=== PATIENT | female | born 1980 | race Caucasian/White ===

== ENCOUNTER 2020-04-27 00:31 | Outpatient (CLI) | payer OTHER, MEDICARE, SELFPAY ==
[2020-04-28 02:12] LABS: SARS-CoV-2 RNA PCR Negative
== END 2020-04-27 00:32 | disposition home or self-care (01) ==
PROVIDERS: Visit Provider Internal Medicine Critical Care Medicine
DX: Z20.828 Contact with and (suspected) exposure to other viral communicable diseases (principal)
CPT/HCPCS: 87635; C9803; U0003

== ENCOUNTER 2020-04-30 07:28 | Outpatient (CLI) | payer OTHER, MEDICARE, SELFPAY ==
--- NOTE | 2020-05-18 02:26 | SLEEP_ITS ---
SPLIT NIGHT SLEEP STUDY DATE OF STUDY: 04/30/2020 ORDERING PROVIDER: Maria Elena Valente REASON FOR THE STUDY: KIMBERLY. HISTORY: This patient is a 39-year-old female, 65 inches tall weighing 300 pounds with a body mass index of 49.9. She has a prior history of obstructive sleep apnea. She also has multiple medical comorbidities including rheumatoid arthritis, fibromyalgia, chronic fatigue and chronic pain, which worsens her insomnia. She also has Crohn disease. This has been going on for several years. She frequently snores and occasionally is loud enough that others complain about it. She rarely awakens at night with heartburn, belching, or coughing. She occasionally awakens from sleep feeling short of breath. She constantly has trouble sleeping with a cold, rarely wakes up gasping for breath at night, frequently has breathing problems at night observed by others, frequently sweats excessively at night and frequently notices her heart pounding or beating irregularly at night. She frequently falls asleep during the day, frequently involuntarily, but never while driving. She does not fall asleep during physical effort. She rarely has loss of muscle tone with strong emotion. She constantly has daytime difficulties due to excessive sleepiness. She is disabled. She does not feel paralyzed on waking or falling asleep. She frequently has vivid dreamlike scenes upon awakening or falling asleep. She is never afraid to go to sleep. She frequently has nightmares, frequently remembers her dreams, has racing thoughts, feelings of sadness, depression, and anxiety. She frequently has muscular tension. She rarely notices parts of her body jerking, rarely kicks at night, and rarely has crawly achy feelings in her legs. She occasionally has leg pain at night. She does not have morning jaw pain. She occasionally grinds her teeth at night. She constantly is bothered by pain during the day and is awakened by pain at night, constantly wakes up feeling stiff in the morning with sore achy muscles and pain in the neck and spine. She has panic, insomnia, concentration difficulties, depression, bowel disturbances, and headaches. Normal bedtime is 11:00 p.m., falling asleep within 30-60 minutes, typically waking 3 times at night for 10 to 15 minutes. During these episodes, she will go to the bathroom, change positions, and try to go back to sleep. She wakes in the morning between 9:00 and 11:00 a.m. Weekend schedule reveals that she goes to bed an hour later. She does not take naps. Naps are not refreshing. She is drowsy in the morning for 3 hours or longer. There is a family history with both of her parents having sleep apnea. MEDICAL COMORBIDITIES: 1. Rheumatoid arthritis. 2. Depression. 3. Anxiety. 4. Seasonal allergies. 5. She has had COVID with pneumonia. 6. GERD. 7. Crohn disease. 8. Hypothyroidism. 9. Diabetes mellitus type 2. MEDICATIONS: 1. Calcium and vitamin D 1 tablet twice a day. 2. Vitamin D 2000 units twice a day. 3. Cyclobenzaprine 10 mg t.i.d. p.r.n. pain. 4. Lyrica 100 mg b.i.d. 5. Methotrexate 5 mg 8 tablets or 40 mg once weekly. 6. Tramadol HCL 50 mg q.6 hours p.r.n. pain. 7. Celebrex 200 mg 1 capsule twice a day. 8. Prednisone 5 mg daily. 9. Cetirizine 10 mg daily. 10. Sulfasalazine 100 mg 4 tablets 4 times a day. 11. Dicyclomine HCL 20 mg 4 times a day. 12. Folic acid 1 mg daily. 13. Lisinopril 40 mg daily. 14. Fluoxetine 40 mg once a day. 15. Nasal decongestant tablet 120 mg q.12 hours. 16. Levothyroxine 100 mcg daily. 17. Alprazolam 0.25 mg b.i.d. 18. Omeprazole 20 mg delayed release 1 daily. 19. Amlodipine 5 mg daily. 20. Simponi 100 mg per mL injected as instructed. 21. Lantus insulin 35 units subcutaneously daily. 22. H
== END 2020-04-30 07:29 | disposition home or self-care (01) ==
LOC: ANHCSM 14:30
PROVIDERS: Visit Provider Physician Assistant
DX: G47.33 Obstructive sleep apnea (adult) (pediatric) (principal)
CPT/HCPCS: 95811

== ENCOUNTER 2020-05-01 13:48 | Outpatient (CLI) | payer OTHER, MEDICARE, SELFPAY ==
--- NOTE | ~2020-05-01 | MM_ITS ---
EXAMINATION: MM screening yang BI w willi HISTORY: Screening mammogram TECHNIQUE: Craniocaudal and mediolateral oblique 3-D tomosynthesis images were obtained and synthetic 2-D images were generated. Bilateral rotated lateral cc views. CAD analysis was submitted and interp reted. COMPARISON: No prior mammogram is available for comparison at this institution. BREAST PARENCHYMAL COMPOSITION: The breasts are almost entirely fatty. FINDINGS: Scattered punctate benign microcalcifications. There is no evidence of suspicious mass, bakari cification, or architectural distortion to suggest malignancy in either breast. There has been no nancy picious interval change. IMPRESSION: 1. No mammographic evidence of malignancy. 2. Recommend routine screening mammography in one year. BI-RADS Category 1: Negative Reviewed, dictated and finalized at location B.
== END 2020-05-01 13:49 | disposition home or self-care (01) ==
LOC: ANHIMG 14:02
PROVIDERS: Visit Provider Obstetrics & Gynecology
DX: Z12.31 Encounter for screening mammogram for malignant neoplasm of breast (principal)
CPT/HCPCS: 77063; 77067

== ENCOUNTER → 2021-08-15 02:17 | Outpatient (CLI) | payer BC, MEDICARE, SELFPAY ==
[2021-08-15 20:41] LABS: SARS-CoV-2 RNA PCR Negative
== END ==
PROVIDERS: PCP Family Medicine; Visit Provider Family Medicine
DX: R68.89 Other general symptoms and signs (principal); Z20.822 Contact with and (suspected) exposure to COVID-19
CPT/HCPCS: C9803; U0003; U0005

== ENCOUNTER → 2022-05-23 15:21 | Outpatient (CLI) | payer BC, MEDICARE, SELFPAY ==
--- NOTE | ~2022-05-23 | XR_ITS ---
XR abdomen/kub 1V 05/23/2022 15:43 INDICATION: Flank pain TECHNIQUE: KUB COMPARISON: None FINDINGS: Bowel gas pattern is normal. There are cholecystectomy clips. There is no evidence of free air, mass, organomegaly, ascites or obstruction. No abnormal calculi are seen. The bones appear int act. IMPRESSION: 1: No acute abdominal abnormality identified. Reviewed, dictated and finalized at location A.
== END ==
PROVIDERS: PCP Physician Assistant; Visit Provider Physician Assistant
DX: R10.9 Unspecified abdominal pain (principal)
CPT/HCPCS: 74018

== ENCOUNTER 2023-02-27 13:32 | Outpatient (CLI) | payer BC, MEDICARE, SELFPAY ==
--- NOTE | ~2023-02-27 | CT_ITS ---
EXAMINATION: CT soft tissue neck w con DATE: 02/27/2023 14:13 INDICATION: Localized swelling, mass and lump, neck. TECHNIQUE: Computed tomography (CT) of the neck was performed with 75 mL Omnipaque-350 intravenous co ntrast. Automated exposure control and iterative reconstruction technique were employed. The dose-wilmer gth product was 699.13 mGy-cm. COMPARISON: None FINDINGS: There are no pathologically enlarged lymph nodes. There is a 4.9 x 2.7 x 2.8 cm subcutaneou s lipoma posterior to right scapula. A skin marker overlies this area. There is mild plaque in proxim al right internal carotid artery with 0% stenosis relative to normal distal artery lumen diameter. Th e major salivary glands are normal. The paranasal sinuses are clear. The mastoid air cells are normal . There is a benign bone island in proximal right humerus. There is mild cervical spondylosis. IMPRESSION: 1. Subcutaneous lipoma posterior to right scapula. Reviewed, dictated and finalized at location A.
[2023-02-27 14:03] LABS: Estimated Glomerular Filt Rate > 60
== END 2023-02-27 13:33 | disposition home or self-care (01) ==
PROVIDERS: PCP Family Medicine; Visit Provider Physician Assistant
DX: R22.1 Localized swelling, mass and lump, neck (principal)
CPT/HCPCS: 70491; Q9967

== ENCOUNTER 2023-03-17 11:55 | Emergency (ER) | payer BC, MEDICARE, SELFPAY ==
--- NOTE | 2023-03-17 12:15 | ED.URI ---
HPI - URI/Sore Throat General Chief Complaint: Upper Respiratory Infection Stated Complaint: flu like symptoms Time Seen by Provider: 03/17/23 12:15 Source: patient, RN notes reviewed and old records reviewed Mode of arrival: ambulatory Limitations: no limitations History of Present Illness HPI Narrative: 42 year old female who presents to [facility] with complaints of fevers since Thursday evening with temp up to 105F this morning. Patient reports that she has had some cough, some nasal drainage, denies any sore throat or ear pain but has generalized body aches. Patient reports that she has taken 3 home COVID test which have all been negative, she called her doctor and was told they don't do influenza tests. Patient admits to some discomfort to lower abdomen and also to right flank area, states she just feels bad. Patient reports that she has history of Crohn's and has frequent diarrhea and nausea. patient reports that she has been taking Tylenol and NyQuil for her symptoms can not take Ibuprofen due to having gastric bypass. Patient is immunosuppressed due to medications she takes for Crohn's and RA. MD elicited complaint: fever, cough and other (body aches, ) Pertinent past history: seasonal allergies and immunosuppression Onset (ago): day(s) (day 3 of symptoms) Pain scale (0-10): 7 Able to tolerate fluids by mouth: Yes Treatments prior to arrival: acetaminophen and other (NyQuil) Related Data Home Medications Medication Instructions Recorded Confirmed Flexeril 10 mg PO HS Muscle spasms 03/17/23 03/17/23 alprazolam 0.5 mg tablet 0.5 mg PO BID anxiety 03/17/23 03/17/23 bupropion HCl 150 mg 24 hr tablet, 300 mg PO DAILY 03/17/23 03/17/23 extended release calcium carbonate 600 mg-vitamin 1 cap PO BID 03/17/23 03/17/23 D3 10 mcg (400 unit) capsule fluoxetine 40 mg capsule 40 mg PO HS 03/17/23 03/17/23 leflunomide 10 mg tablet 10 mg PO DAILY 03/17/23 03/17/23 prednisone 1 mg tablet 3 mg PO DAILY 03/17/23 03/17/23 tramadol 50 mg tablet 50 mg PO TID PRN pain 03/17/23 03/17/23 upadacitinib 15 mg tablet,extended 30 mg PO DAILY 03/17/23 03/17/23 release 24 hr (Rinvoq) Allergies Allergy/AdvReac Type Severity Reaction Status Date / Time aspirin AdvReac Intermediate GI UPSET Verified 03/17/23 18:58 NSAIDS (Non-Steroidal AdvReac Intermediate Gastrointestinal Verified 03/17/23 18:58 Anti-Inflamma Upset Review of Systems Review of Systems: CONSTITUTIONAL: Denies malaise, chills, sweats, or fever. EYES: Denies visual changes, redness, or discharge. ENT: Reports rhinorrhea, congestion, sinus dav n,no otalgia and nosore throat. CARDIOVASCULAR: Denies chest pain, palpitations, or edema. RESPIRATORY: Reports cough.? Denies dyspnea. GASTROINTESTINAL: lower mid abdominal pain,positive for nausea, no vomiting, positive for diarrhea SKIN: Denies rash or itching. MUSCULOSKELETAL:Reports myalgia. NEUROLOGIC: Reports headache. All systems reviewed & are unremarkable except as noted in HPI and below PMFSH Past Medical History Medical History (Updated 03/18/23 @ 07:23 by Annamarie Barnes NP) Allergic rhinitis Crohn's disease Diet-controlled type 2 diabetes mellitus Fibromyalgia Gastroesophageal reflux disease Herpes Hypothyroidism Immunosuppressed status Insomnia Obstructive sleep apnea on CPAP Post depression Rheumatoid arthritis Surgical History Surgical History (Updated 03/17/23 @ 17:12 by Lucero Holland PA-C) History of arthroscopic knee surgery History of cholecystectomy (01/2006) History of endometrial ablation (03/2011) [facility] History of gastric bypass (2021) History of hysterectomy (2015) History of tonsillectomy and adenoidectomy (1981) Status post LASIK surgery of both eyes Family History Family History Other Cerebrovascular accident Diabetes mellitus Family history of cardiovascular disease Family history of mal
[2023-03-17 12:18] VITALS: BP 133/93; PULSE 124; RESP 20; TEMP 39.6; O2SAT 97
[2023-03-17 12:45] LABS: Glucose Point of Care 346 mg/dl (65-105)
[2023-03-17 13:11] VITALS: TEMP 40.5
[2023-03-17 13:14] VITALS: TEMP 40.5
[2023-03-17] MEDS: ACETAMINOPHEN 500 MG TABLET PO (13:14)
== END 2023-03-17 13:20 | disposition short-term general hospital (02) ==
PROVIDERS: Emergency Provider Registered Nurse; PCP Family Medicine
DX: N39.0 Urinary tract infection, site not specified (principal); E11.65 Type 2 diabetes mellitus with hyperglycemia; Z87.891 Personal history of nicotine dependence; K50.90 Crohn's disease, unspecified, without complications; M79.7 Fibromyalgia; K21.9 Gastro-esophageal reflux disease without esophagitis; E03.9 Hypothyroidism, unspecified; G47.33 Obstructive sleep apnea (adult) (pediatric); M06.9 Rheumatoid arthritis, unspecified
CPT/HCPCS: 81003; 82948; 87077; 87086; 87186; 87804; 99213; A9270; G0463

== ENCOUNTER 2023-03-17 13:29 | Inpatient (IN) | payer BC, MEDICARE, SELFPAY ==
[2023-03-17] VITALS (27 sets, daily range): BP systolic 91–140; BP diastolic 56–112; PULSE 71–137; RESP 15–25; TEMP 36.4–39.6; O2SAT 90–99; BMI 44.1
--- NOTE | ~2023-03-17 | XR_ITS ---
EXAMINATION: XR abdomen/kub 1V DATE: 03/18/2023 08:55 INDICATION: Right ureteral stent placement. Right kidney stone. TECHNIQUE: A supine view of the abdomen was obtained. COMPARISON: CT abdomen and pelvis 03/17/2023 FINDINGS: There are no dilated loops of bowel. There is a right internal ureteral stent in expected p osition. IMPRESSION: 1. Right internal ureteral stent in expected position. 2. No visible urolithiasis. Reviewed, dictated and finalized at location A.
--- NOTE | ~2023-03-17 | XR_ITS ---
XR chest 1V portable 03/23/2023 15:50 Indication: Pneumonia follow-up. Shortness of breath. Procedure: AP portable chest Comparison: Comparison to multiple prior studies sequentially, with oldest reviewed study dated 03/17. Findings: There is been progression of left-sided airspace disease, compatible with pneumonia. No ple ural effusion or pneumothorax. No acute osseous abnormality. There is scoliosis. No acute osseous abn ormality. Impression: 1: Interval progression of left-sided airspace disease, compatible with pneumonia. Reviewed, dictated and finalized at location B. Impression: 1: Interval progression of left-sided airspace disease, compatible with pneumon ia.
--- NOTE | ~2023-03-17 | XR_ITS ---
EXAMINATION: XR retrograde pyelo w/stent RT DATE: 03/17/2023 17:00 CDT INDICATION: Right sided stent placement . TECHNIQUE: 1 fluoroscopic image of the right abdomen were obtained during right retrograde pyelograph y with stent placement performed by the surgeon. I was not present in the operating room. Fluoroscopy exposure time was 14.8 seconds. Air Kerma 12.83 mGy. DAP [id number] mGym2. COMPARISON: CT abdomen and pelvis, same date FINDINGS: Clinical statement clips. Right ureteral stent, proximal coil projecting over the right upper pole. I mages of the distal coil were not provided. IMPRESSION: Fluoroscopic documentation of right retrograde pyelography with stent placement. Please refer to the operative note for complete procedural details . Reviewed, dictated and finalized at location K. IMPRESSION: Fluoroscopic documentation of right retrograde pyelography with stent placement . Please refer to the operative note for complete procedural details .
--- NOTE | ~2023-03-17 | XR_ITS ---
EXAMINATION: XR chest 1V portable DATE: 03/22/2023 05:56 INDICATION: Pneumonia. TECHNIQUE: A single frontal view of the chest was obtained. COMPARISON: Chest 2 views 03/21/2023, CT abdomen and pelvis 03/21/2023 FINDINGS: There are airspace opacities in left mid and upper lung zones. There are mild airspace opac ities in right upper lung zone. No pleural effusion or pneumothorax. The heart size is normal. IMPRESSION: 1. Stable airspace opacities in right upper lung zone and left mid and upper lung zones, consistent w ith pneumonia. Reviewed, dictated and finalized at location A. IMPRESSION: 1. Stable airspace opacities in right upper lung zone and left mid and upper ananth ng zones, consistent with pneumonia.
--- NOTE | ~2023-03-17 | XR_ITS ---
EXAMINATION: XR chest 2V DATE: 03/21/2023 10:01 INDICATION: Fever. TECHNIQUE: Frontal and lateral views of the chest were obtained. COMPARISON: Chest 2 views 03/17/2023, CT abdomen and pelvis 03/21/2023 FINDINGS: There are Esteban B-lines, consistent mild pulmonary edema. There are airspace opacities in left mid and lower lung zones and right upper lung zone. No pleural effusion or pneumothorax. The hea rt size is normal. There are surgical clips in the abdomen. IMPRESSION: 1. Diffuse lung disease, likely a combination of mild pulmonary edema and pneumonia. Reviewed, dictated and finalized at location A. IMPRESSION: 1. Diffuse lung disease, likely a combination of mild pulmonary edema and pneum onia.
--- NOTE | ~2023-03-17 | CT_ITS ---
EXAMINATION: CT abdomen pelvis w con DATE: 03/17/2023 15:42 INDICATION: Right flank pain. Hematuria. TECHNIQUE: Computed tomography (CT) of the abdomen and pelvis was performed with 100 mL Omnipaque-350 intravenous contrast. Automated exposure control and iterative reconstruction technique were employe d. The dose-length product was 1587.08 mGy-cm. COMPARISON: None FINDINGS: Mild dependent atelectasis in the bilateral lower lobes. Heart size is normal. No pericardial or pleu ral effusion. Small sliding-type hiatal hernia and changes of prior Demario-en-Y gastric bypass procedur e. Cholecystectomy clips the gallbladder fossa. Liver, spleen, pancreas, bilateral adrenal glands and right kidney are normal. 6 mm stone at the infundibulum draining the upper pole of the left kidney w ith mild hydronephrosis and mildly delayed renal parenchymal enhancement in the upper pole of the rig ht kidney. No other urolithiasis. There is mild right perinephric stranding and subtle urothelial enh ancement along the right ureter which can be seen with associated ascending urinary tract infection. Bladder is normal. The uterus is not identified and has likely been surgically resected. There are co uple nabothian cysts at the cervix. Bilateral small adnexal cysts the largest on the left measuring 2 .0 cm. There is fluid throughout the colon consistent with nonspecific diarrhea. No bowel obstruction . Normal appendix. No free intraperitoneal gas or fluid. No pathologically enlarged abdominal or pelv ic lymphadenopathy. Mild thoracolumbar levocurvature with mild spondylosis. IMPRESSION: 1. Obstructing 6 mm stone at the infundibulum draining the upper pole the left kidney with secondary mild hydronephrosis and mildly delayed nephrogram at the upper pole of the right kidney. 2. Mild urothelial enhancement along the right ureter which could be seen with ascending urinary trac t infection. Correlate with urinalysis. Reviewed, dictated and finalized at location A. IMPRESSION: 1. Obstructing 6 mm stone at the infundibulum draining the upper pole the left kidney with secondary mild hydronephrosis and mildly delayed nephrogram at the upper pole of the right kidney. 2. Mild urothelial enhancement along the right ureter which could be seen with ascending urinary tract infection. Correlate with urinalysis.
--- NOTE | ~2023-03-17 | XR_ITS ---
EXAMINATION: XR chest 2V Exam Date/Time: 03/17/2023 15:40 CDT HISTORY: Sepsis, dry cough, fever Comparison: 08/15/2013. RESULT: Lines, tubes, and devices: Cholecystectomy clips. Left upper quadrant radiopacities, possibly old an chors from prior PEG tube. Lungs and pleura: Mild streaky bibasilar scar/atelectasis, otherwise clear. Cardiomediastinal silhouette: Stable. Other: No acute osseous or upper abdominal finding. Right humeral head bone island. IMPRESSION: No acute cardiopulmonary process. Reviewed, dictated and finalized at location K.
--- NOTE | ~2023-03-17 | CT_ITS ---
EXAMINATION: CT abdomen pelvis wo con DATE: 03/21/2023 02:31 INDICATION: Fever. TECHNIQUE: Computed tomography (CT) of the abdomen and pelvis was performed without intravenous contr ast. Automated exposure control and iterative reconstruction technique were employed. The dose-length product was 1591.36 mGy-cm. COMPARISON: CT abdomen and pelvis 03/17/2023 FINDINGS: The visualized portions of the lung bases demonstrate worsened mild dependent atelectasis. There is new smooth septal thickening bilaterally. There are new groundglass opacities in the left lo wer lobe and lingula. There is a small left pleural effusion. The heart size is normal. No pericardia l effusion. There is a small sliding hiatal hernia. There are changes of gastric bypass procedure. Th e liver is normal. There are changes of cholecystectomy. The spleen, pancreas, adrenal glands, and le ft kidney are normal. There is asymmetric edema around the right kidney. There are 4 mm and 6 mm ston es in right kidney. There is a right internal ureteral stent in expected position. There are no dilat ed loops of bowel. The appendix is normal. There are no pathologically enlarged lymph nodes. There is no free intraperitoneal fluid. There is a benign bone island in left parasymphyseal pubis. There is mild thoracic and lumbar spondylosis. There is mild chronic anterior wedging of T7 vertebral body. IMPRESSION: 1. 4 mm and 6 mm stones in right kidney. Right internal ureteral stent in expected position. 2. New smooth septal thickening in the lungs and new groundglass opacities in lingula and left lower lobe, consistent with pulmonary edema without or with superimposed pneumonia. 3. Small left pleural effusion. Reviewed, dictated and finalized at location E. IMPRESSION: 1. 4 mm and 6 mm stones in right kidney. Right internal ureteral stent in expec cam position. 2. New smooth septal thickening in the lungs and new groundglass opacities in l ingula and left lower lobe, consistent with pulmonary edema without or with sup erimposed pneumonia. 3. Small left pleural effusion.
--- NOTE | 2023-03-17 14:21 | ECG_ITS ---
Measurements Intervals [place] Rate: 105 P: 39 AR: 154 QRS: 17 QRSD: 85 T: 12 QT: 275 QTc: 364 Interpretive Statements SINUS TACHYCARDIA BASELINE ARTIFACT LOW QRS VOLTAGE IN PRECORDIAL LEADS [QRS DEFLECTION < 1.0 mV IN CHEST LEADS] NONSPECIFIC T-WAVE ABNORMALITY BORDERLINE ECG NO PREVIOUS ECG AVAILABLE FOR COMPARISON Electronically Signed On 03-18-2023 14:59:49 CDT by Renard Brasher M.D.
[2023-03-17 14:29] LABS: Glucose Point of Care 380 mg/dl (65-105)
[2023-03-17] MEDS: ONDANSETRON INJ 4 MG/2 ML VIAL IV PUSH ×2 (14:33→21:05)
--- NOTE | 2023-03-17 14:37 | ED.GENADULT ---
HPI - General Adult General Chief complaint: Fever <Mariano Lugo PA-C - Last Filed: 03/17/23 18:07> Stated complaint: fever <SALINA Domingo Last Filed: 03/17/23 18:07> Time Seen by Provider: 03/17/23 14:15 <Mariano Lugo PA-C - Last Filed: 03/17/23 18:07> Source: patient <SALINA Domingo Last Filed: 03/17/23 18:07> Mode of arrival: ambulatory <SALINA Domingo Last Filed: 03/17/23 18:07> Limitations: no limitations <SALINA Domingo Last Filed: 03/17/23 18:07> History of Present Illness HPI narrative: This is a 42-year-old female who presents to the ED after referral from urgent care for concern for sepsis. Patient states that she has been having fevers with Tmax of 104 at home. She also reports hematuria and lower abdominal pain as well as right flank pain. She reports the right flank seems to radiate into the lower abdomen. For the last couple of days she was treating it more as a pulled back muscle. Patient states that she has had sepsis in the past due to an abscess from Crohn's disease. She reports feeling generally unwell, weak and malaised. Reports diaphoresis. Denies chest pain, cough, shortness of breath. States she is taking immunosuppressive medications for Crohn's. <Mariano Lugo PA-C - Last Filed: 03/17/23 18:07> Related Data Home medications: Home Medications Medication Instructions Recorded Confirmed bupropion HCl 150 mg 24 hr tablet, 300 mg PO QAM 03/17/23 03/17/23 extended release leflunomide 10 mg tablet 10 mg PO DAILY 03/17/23 03/17/23 prednisone 1 mg tablet 3 mg PO DAILY 03/17/23 03/17/23 <SALINA Domingo Last Filed: 03/17/23 18:07> Allergies/adverse reactions: Allergies Allergy/AdvReac Type Severity Reaction Status Date / Time aspirin AdvReac Intermediate GI UPSET Verified 03/17/23 14:13 NSAIDS (Non-Steroidal AdvReac Intermediate Gastrointestinal Verified 03/17/23 14:13 Anti-Inflamma Upset <Mariano Lugo PA-C - Last Filed: 03/17/23 18:07> Review of Systems Review of Systems: All systems as dictated in HPI <Mariano Lugo PA-C - Last Filed: 03/17/23 18:07> [facility] Past Medical History Medical History: Medical History (Updated 03/17/23 @ 18:00 by Mariano Lugo PA-C) Allergic rhinitis Crohn's disease Diet-controlled type 2 diabetes mellitus Fibromyalgia Gastroesophageal reflux disease Herpes Hypothyroidism Immunosuppressed status Insomnia Obstructive sleep apnea on CPAP Post depression Rheumatoid arthritis <Mariano Lugo PA-C - Last Filed: 03/17/23 18:07> Surgical History Surgical History: Surgical History (Updated 03/17/23 @ 17:12 by Lucero Holland PA-C) History of arthroscopic knee surgery History of cholecystectomy (01/2006) History of endometrial ablation (03/2011) [employer] History of gastric bypass (2021) History of hysterectomy (2015) History of tonsillectomy and adenoidectomy (1981) Status post LASIK surgery of both eyes <Mariano Lugo PA-C - Last Filed: 03/17/23 18:07> Family History Family History: Family History Other Cerebrovascular accident Diabetes mellitus Family history of cardiovascular disease Family history of malignant neoplasm Hypertension <Mariano Lugo PA-C - Last Filed: 03/17/23 18:07> Social History Social History: Social History (Updated 03/17/23 @ 17:14 by Lucero Holland PA-C) Social History: Surrogate medical decision maker: Mayo Soria, spouse. Code status: Full code. Smoking status: Former smoker Alcohol intake: current Alcohol use details: Social alcohol use in moderation. Substance use: current Substance use type: marijuana Lack of Transportation: No Lack of Food: Never True Current Housing: I Have Housing Concerned About Future Housing: No Difficulty Paying Gas/Electric Bills: No Difficulty Paying
[2023-03-17 14:55] LABS: Basophils Absolute Auto 0.1 K/mm3 (0.0-0.1); Basophils Percent Auto 0.6 % (0.2-1.2); Eosinophils Percent Auto 0.1 % (0-4.4); Hematocrit 41.6 % (37.0-47.0); Hemoglobin 13.9 g/dL (12.0-15.0); Immature Granulocyte Absolute 0.08 K/mm3 (0.00-0.031); Immature Granulocyte Percent A 0.6 % (0-0.5); Lymphocytes Absolute Auto 1.12 K/mm3 (0.9-3.2); Lymphocytes Percent Auto 8.4 % (18.3-44.2); Mean Corpuscular HGB Conc 33.4 g/dl (32-36); Mean Corpuscular Hemoglobin 31.4 pg (26-34); Mean Corpuscular Volume 94.1 fl (80-100); Mean Platelet Volume 9.6 fl (7.4-10.4); Monocytes Absolute Auto 1.2 K/mm3 (0.1-0.6); Monocytes Percent Auto 9.3 % (2.6-8.5); Neutrophils Absolute Auto 10.8 K/mm3 (1.3-6.7); Platelet Count Result 186 k/mm3 (150-375); Red Blood Count 4.42 M/mm3 (4.2-5.4); Red Cell Distribution Width 11.9 % (11.5-14.5); White Blood Count 13.3 K/mm3 (4.5-10.0)
[2023-03-17 15:06] LABS: INR 1.1; Partial Thromboplastin Time 30.2 SECONDS (22.3-36.8); Prothrombin Time 14.9 Seconds (11.1-14.7)
[2023-03-17 15:07] LABS: Lipase 104 U/L (23-300)
[2023-03-17] MEDS: HYDROmorphone HCL INJ (*CRX) 1 MG/ML SYR 0.5 MG IV PUSH ×2 (15:07→21:08)
[2023-03-17 15:08] LABS: Lactic Acid Reflex 1.7 mmol/L (0.7-2.0)
[2023-03-17 15:18] LABS: Alanine Aminotransferase 36 U/L (6-35); Albumin Level 4.6 g/dL (3.5-5.1); Alkaline Phosphatase 155 U/L (38-126); Anion Gap 16 mmol/L (8-16); Aspartate Amino Transferase 32 U/L (14-36); Blood Urea Nitrogen 12 mg/dL (7-17); Calcium 9.1 mg/dL (8.4-10.2); Carbon Dioxide 18 mmol/L (22-30); Chloride 96 mmol/L (98-107); Estimated CRCL calculation 89 ml/min; Estimated Glomerular Filt Rate > 60; Glucose 341 mg/dL (65-110); Potassium 3.1 mmol/L (3.4-5.0); Sodium 130 mmol/L (137-145)
[2023-03-17 15:48] LABS: CRP 39.5 mg/dL (<1.0)
[2023-03-17 16:42] LABS: Appearance Urine Cloudy (Clear); Bacteria Urine Rare /hpf; Bilirubin Urine Negative (Negative); Blood Urine Negative (Negative); Color Urine Yellow (Yellow); Glucose Urine UA 2+ mg/dL (Negative); Ketones Urine 1+ mg/dL (Negative); Leukocyte Esterase Ur 2+ LEU/UL (Negative); Need Manual Microscopic Reviewed; Nitrate Urine Negative (Negative); Non Pathogenic Casts 0-2; Protein Urine Trace mg/dL (Negative); RBC Urine 0-2 /hpf (0-2); Specific Grav Ur 1.006 (1.001-1.035); Squamous Epithelial Cell Urine Occasional /hpf (Few); Urobilinogen Urine 0.2 mg/dL (<2.0); WBC Urine 21-50 /hpf
[2023-03-17 16:43] LABS: Add Urine Microscopic? YES
--- NOTE | 2023-03-17 16:52 | WPDANESEPP ---
Anes - Eval Pre Procedure Procedure: Operation Date: 03/17/23 17:00 Proposed Procedures p Cystoscopy,Right Retrograde Pyelogram,Right Stent Placement ,Possible Ureteroscopy,Possible Stone Extraction,Possible Holmium Laser - Ottoniel Torres MD Date/Time: 03/17/23 16:52 Pre Op Diagnosis: fever Patient Data Age: 42 Gender: F Height: 1.65 m Weight: 116 kg Last Vital Signs Temp 38.4 C H 03/17/23 15:03 Pulse 107 H 03/17/23 16:02 Resp 20 03/17/23 16:02 BP 113/56 L 03/17/23 16:02 Pulse Ox 94 03/17/23 15:17 Allergies Allergy/AdvReac Type Severity Reaction Status Date / Time aspirin AdvReac Intermediate GI UPSET Verified 03/17/23 14:13 NSAIDS (Non-Steroidal AdvReac Intermediate Gastrointestinal Verified 03/17/23 14:13 Anti-Inflamma Upset Home Medications Medication Instructions Recorded Confirmed Type valacyclovir 1 gram tablet 2,000 mg PO Q12H PRN cold sores 12/05/22 03/17/23 Rx #30 tabs alprazolam 0.5 mg tablet 0.5 mg PO BID PRN anxiety #60 tabs 02/24/23 03/17/23 Rx calcium carbonate 600 mg-vitamin 1 cap PO .twice daily #60 caps 02/24/23 03/17/23 Rx D3 10 mcg (400 unit) capsule cetirizine 10 mg tablet 10 mg PO DAILY #30 tabs 02/24/23 03/17/23 Rx fluoxetine 40 mg capsule 40 mg PO DAILY #30 caps 02/24/23 03/17/23 Rx levothyroxine 100 mcg tablet 100 mcg PO DAILY #60 tabs 02/24/23 03/17/23 Rx lisinopril 40 mg tablet 40 mg PO DAILY #30 tabs 02/24/23 03/17/23 Rx omeprazole 20 mg capsule,delayed 20 mg PO DAILY #30 caps 02/24/23 03/17/23 Rx release pregabalin 100 mg capsule 100 mg PO BID #60 caps 02/24/23 03/17/23 Rx upadacitinib 15 mg tablet,extended 15 mg PO DAILY #30 tabs 02/24/23 03/17/23 Rx release 24 hr (Rinvoq) tramadol 50 mg tablet 50 mg PO TID pain 30 days #90 tabs 03/02/23 03/17/23 Rx bupropion HCl 150 mg 24 hr tablet, 300 mg PO QAM 03/17/23 03/17/23 History extended release leflunomide 10 mg tablet 10 mg PO DAILY 03/17/23 03/17/23 History prednisone 1 mg tablet 3 mg PO DAILY 03/17/23 03/17/23 History Laboratory Tests 03/17/23 03/17/23 03/17/23 14:22 14:49 16:16 WBC 13.3 H K/mm3 (4.5-10.0) RBC 4.42 M/mm3 (4.2-5.4) Hgb 13.9 g/dL (12.0-15.0) Hct 41.6 % (37.0-47.0) MCV 94.1 fl (80-100) MCH 31.4 pg (26-34) MCHC 33.4 g/dl (32-36) RDW 11.9 % (11.5-14.5) Plt Count 186 k/mm3 (150-375) MPV 9.6 fl (7.4-10.4) Immature Gran % (Auto) 0.6 H % (0-0.5) Neut % (Auto) 81.0 H % (45.5-73.1) Lymph % (Auto) 8.4 L % (18.3-44.2) [place] % (Auto) 9.3 H % (2.6-8.5) Eos % (Auto) 0.1 % (0-4.4) Baso % (Auto) 0.6 % (0.2-1.2) Lymph # (Auto) 1.12 K/mm3 (0.9-3.2) [place] # (Auto) 1.2 H K/mm3 (0.1-0.6) Eos # (Auto) 0.0 K/mm3 (0-0.3) Baso # (Auto) 0.1 K/mm3 (0.0-0.1) Abs Immat Gran (auto) 0.08 H K/mm3 (0.00-0.031) Absolute Neuts (auto) 10.8 H K/mm3 (1.3-6.7) Absolute Nucleated RBC 0.0 K/mm3 (0.0-0.012) Nucleated RBC % 0.0 % (0.0-0.2) PT 14.9 H Seconds (11.1-14.7) INR 1.1 APTT 30.2 SECONDS (22.3-36.8) Sodium 130 L mmol/L (137-145) Potassium 3.1 L mmol/L (3.4-5.0) Chloride 96 L mmol/L (98-107) Carbon Dioxide 18 L mmol/L (22-30) Anion Gap 16 mmol/L (8-16) BUN 12 mg/dL (7-17) Creatinine 0.90 mg/dL (0.7-1.0) Estim Creat Clear Calc 89 ml/min Estimated GFR > 60 (59 - ) Glucose 341 H mg/dL (65-110) POC Capillary Glucose 380 H mg/dl (65-105) Lactic Acid 1.7 mmol/L (0.7-2.0) Calcium 9.1 mg/dL (8.4-10.2) Total Bilirubin 1.0 mg/dL (0.2-1.3) AST 32 U/L (14-36) ALT 36 H U/L (6-35) Alkaline Phosphatase 1
--- NOTE | 2023-03-17 16:55 | PM.IMHP ---
H&P: HPI History of Present Illness Date/Time: 03/17/23 16:45 Chief Complaint: Fever. Narrative: This is a 42-year-old female with rheumatoid arthritis and Crohn's disease on immunosuppressive therapy, diet-controlled diabetes, hypothyroidism, fibromyalgia, and obstructive sleep apnea presented to the emergency department from urgent care for evaluation of a fever. The patient provides the following history. She started feeling unwell on Thursday with generalized discomfort in the right mid to lower back and flank which she initially attributed to her fibromyalgia. She used Biofreeze and her TENS unit though that provided her with no relief and her pain persisted. Tylenol helped perhaps a little bit. On Thursday she began having chills and cold sugars with temperatures up to 105.2? F. her appetite has been poor due to ongoing nausea and she has not had much in the way of oral intake aside from protein shakes since Thursday morning. She endorses urinary urgency and strong smell urine but she denies sees overt dysuria. She also denies sinus congestion, sore throat, and cough. She has no sick contacts. After speaking with her doctor's office she was referred to urgent care for viral testing though she was not well enough to go yesterday. She went to urgent care today where she tested negative for influenza and COVID. Due to her significantly elevated temperature she was directed to the ED for further evaluation. On arrival to the ED she was tachycardic and febrile with a blood pressure of 91/69. Preliminary workup was significant for leukocytosis with a white blood cell count of 13.3, sodium 130, potassium 3.1, chloride 96, carbon dioxide 18, creatinine 0.90, glucose 341, lactic acid 1.7, CRP 39.5. Urine showed 2+ leukocyte esterase, 21 to 50 WBC, and rare bacteria. CT of the abdomen and pelvis showed mild urothelial enhancement along the right ureter which could be seen with ascending UTI and an obstructing 6 mm stone at the infundibulum draining the upper pole of the right kidney with secondary mild hydronephrosis. Chest x-ray was normal. She is going to the OR for cystoscopy and stent placement per Dr. Torres and she will be admitted to the floor thereafter for IV antibiotics. Review of Systems Review of Systems: Twelve systems were reviewed and are negative except for as per HPI. [facility] Past Medical History Medical History (Updated 03/17/23 @ 18:00 by Mariano Lugo PA-C) Allergic rhinitis Crohn's disease Diet-controlled type 2 diabetes mellitus Fibromyalgia Gastroesophageal reflux disease Herpes Hypothyroidism Immunosuppressed status Insomnia Obstructive sleep apnea on CPAP Post depression Rheumatoid arthritis Surgical History Surgical History (Updated 03/17/23 @ 17:12 by Lucero Holland PA-C) History of arthroscopic knee surgery History of cholecystectomy (01/2006) History of endometrial ablation (03/2011) [employer] History of gastric bypass (2021) History of hysterectomy (2015) History of tonsillectomy and adenoidectomy (1981) Status post LASIK surgery of both eyes Family History Family History Other Cerebrovascular accident Diabetes mellitus Family history of cardiovascular disease Family history of malignant neoplasm Hypertension Social History Social History (Updated 03/17/23 @ 17:14 by Lucero Holland PA-C) Social History: Surrogate medical decision maker: Mayo Soria, spouse. Code status: Full code. Smoking status: Former smoker Alcohol intake: never Alcohol use details: Social alcohol use in moderation. Substance use: current Substance use type: other Other substance usage details: thc gummies Lack of Transportation: No Lack of Food: Never True Current Housing: I Have Housing Concerned About Future Housing: No Difficulty Paying Gas/Electric Bills: No Difficulty Paying for Meds: No Currently Unemployed: No E
--- NOTE | 2023-03-17 17:03 | WPDURCON ---
Assessment and Plan Assessment and plan (1) Right renal stone: Code(s): N20.0 - Calculus of kidney Status: Acute Assessment and Plan: Given patient's fever and difficulty controlling blood sugars along with this obstructing calculus in the right upper pole and for infundibulum. We have recommended proceeding with cystoscopy, left retrograde pyelogram left ureteral stent placement. They are aware that due to location and may be difficult to place a stent past this infundibular stone to adequately place a stent. If no gross purulence noted she may require ureteroscopy in order to accomplish this. I have discussed this with the radiologist who felt that it would be a difficult percutaneous placement in addition. Will proceed with cysto, right retrograde, right ureteral stent placement with possible ureteroscopy laser. (2) Hydronephrosis, right: Code(s): N13.30 - Unspecified hydronephrosis Status: Acute Assessment and Plan: See above (3) UTI (urinary tract infection): Code(s): N39.0 - Urinary tract infection, site not specified Status: Acute Assessment and Plan: Cultures will be pending Urology Consult Note HPI Date Seen: 03/17/23 Time Seen: 17:04 Requesting Physician: Ottoniel Torres MD Primary Care Provider: Michael Bahena MD Consult Narrative Reason for consult: Right upper pole infundibular stone with hydro and fever Narrative: Audrey Soria is a 42 year old female who developed some right flank pain and fever. She was referred to the emergency room from the urgent care center. She denies any prior history of stones. She does have a history of a intestinal abscess. CT scan however revealed a 6 mm stone obstructing the upper pole infundibulum. She had a fever of 104 earlier today. Urinalysis was nitrite negative although it did have leukocytes present. Only rare bacteria present. Review of Systems Review of Systems: All systems reviewed & are unremarkable except as noted in HPI and below PMFSH Past Medical History Medical History Allergic rhinitis Crohn's disease Diabetes mellitus type 2 in obese Fibromyalgia GERD (gastroesophageal reflux disease) Herpes Hypothyroidism Insomnia KIMBERLY (obstructive sleep apnea) Post depression Rheumatoid arthritis Surgical History Surgical History H/O: hysterectomy 2016 History of arthroscopic knee surgery History of cholecystectomy 01/2006 History of endometrial ablation NovaSure 03/2011 History of tonsillectomy and adenoidectomy 1982 Hx of LASIK Personal history of gastric bypass 2021 Family History Family History Other Cerebrovascular accident Diabetes mellitus Family history of cardiovascular disease Family history of malignant neoplasm Hypertension Social History Social History Smoking status: Former smoker Alcohol intake: current Substance use: current Substance use type: marijuana Lack of Transportation: No Lack of Food: Never True Current Housing: I Have Housing Concerned About Future Housing: No Difficulty Paying Gas/Electric Bills: No Difficulty Paying for Meds: No Currently Unemployed: YES Education: Trade/Vocational Certificate Difficulty w/ Childcare or Family Care: No Living arrangements: with family Occupation/Education: other Additional occupation/education comments: Disabled Gender identity (if verbalized by the patient): Female Sexual Orientation (if Verbalized by the Patient): Straight or Heterosexual Meds Home Medications and Allergies Home Medications Medication Instructions Recorded Confirmed Type valacyclovir 1 gram tablet 2,000 mg PO Q12H PRN cold sores 12/05/22 03/17/23
[2023-03-17 17:04] LABS: Glucose Point of Care 330 mg/dl (65-105)
--- NOTE | 2023-03-17 17:08 | WPDHPUPDATE1 ---
History and Physical Update Update Date/Time: 03/17/23 17:08 History and Physical has been reviewed, including an updated exam of the patient. There are NO changes in the patient's condition. Risks, benefits, and alternatives have been discussed and questions answered. Patient agrees to proceed with procedure. Proceed with cystoscopy, right retrograde pyelogram, right ureteral stent placement, possible ureteroscopy with laser
--- NOTE | 2023-03-17 17:17 | P.PNAN_ITS ---
Anes - Eval Final PreProcedure Day of Procedure 03/17/23 17:17 Patient weight: morbidly obese Heart: regular rate and rhythm Lungs: clear to auscultation Airway: Mallampati scale class II Neurological: alert and oriented Last oral intake: >/= 8 hours ASA classification: III Emergent: no Anesthetic plan: proceed Anesthesia type and monitoring: general LMA and standard monitoring Results Review: All pre-operative results and documents have been reviewed as part of the pre- operative evaluation. Informed Consent: The patient's anesthetic plan and its attendant risks and benefits were discussed with the patient/family/POA. Questions were solicited and answers provided to the satisfaction of the patient/family/POA.
--- NOTE | 2023-03-17 17:30 | W.PM.PROC2 ---
Procedure Note - Detailed Date of Procedure 03/17/23 Pre-op Diagnosis fever, right upper pole infundibular stone with dilated calyx Post-op Diagnosis Same Procedure Performed Cystoscopy, right ureteroscopy with placement of right ureteral stent in upper pole calyx, complex Livingston catheter placement Surgeon Ottoniel Torres MD Anesthesia General Description of Procedure Patient is taken to the operative suite correctly identified. Once anesthesia was obtained she was placed in dorsal lithotomy position and prepped and draped usual sterile fashion. Nineteen Tamazight scope inserted the bladder there is no tumors noted. A guidewire was inserted into the right ureteral orifice up into the kidney. I could not tell if it was in the right calyx. As such I dilated with an 8/10 dilator. A flexible ureteral scope was inserted all the way up into the kidney. It was noted that the scope was able to push the stone out of the infundibular area into the dilated calyx. I did aspirate some urine from that calyx and sent for culture. I then placed a 4.8 Tamazight contour stent over the wire with the proximal end coiled in the upper pole calyx and the distal in the bladder. 2% viscous lidocaine was inserted into the urethra. Sixteen Tamazight Livingston was inserted. 10 cc were placed in balloon. She taken recovery room stable condition. Will plan on Livingston catheter removal tomorrow if her urine is clear. The stone will be addressed in a couple weeks when she gets over her acute episode. This completes dictation. Please send a copy of op note to my office Estimated Blood Loss 0 Drains Yes Packing No Pathology Yes (Urine culture) Complications No immediate complications Condition Stable Disposition PACU
[2023-03-17 17:40] LABS: Glucose Point of Care 268 mg/dl (65-105)
[2023-03-17] MEDS: INSULIN HUMAN REGULAR (*BKC) 100 UNITS/ML 6 UNITS SUB-Q (17:41)
[2023-03-17 18:14] LABS: Glucose Point of Care 291 mg/dl (65-105)
[2023-03-17] MEDS: SODIUM CHLORIDE 0.9% IV 1,000 ML 125 ML IV CONT (19:01)
[2023-03-17] MEDS: ACETAMINOPHEN 325 MG TABLET 650 MG PO (19:02)
--- NOTE | 2023-03-17 19:16 | PC.NURSE ---
This patient, Audrey Soria, was received from [or] on 03/17/23 at 1840. Patient/family oriented to unit policies and routines. Report from Leila
[2023-03-17 20:04] LABS: Anion Gap 8 mmol/L (8-16); Blood Urea Nitrogen 7 mg/dL (7-17); Calcium 7.9 mg/dL (8.4-10.2); Carbon Dioxide 18 mmol/L (22-30); Chloride 103 mmol/L (98-107); Estimated CRCL calculation 115 ml/min; Estimated Glomerular Filt Rate > 60; Glucose 300 mg/dL (65-110); Potassium 3.6 mmol/L (3.4-5.0); Sodium 129 mmol/L (137-145)
[2023-03-17 20:19] LABS: Glucose Point of Care 329 mg/dl (65-105)
[2023-03-17] MEDS: INSULIN ASPART (*BKC) 100 UNITS/ML SUB-Q (21:16)
[2023-03-17] MEDS: PIPERACILLN/TAZ 3.375GM/NS50ML 3.375 GM/50 ML BAG IVPB (21:19)
[2023-03-17] MEDS: CYCLOBENZAPRINE HCL 10 MG TABLET PO (21:57)
[2023-03-17] MEDS: ALPRAZolam (*CRX) 0.5 MG TABLET PO (21:57)
[2023-03-17] MEDS: PREGABALIN (*CRX) 50 MG CAPSULE 100 MG PO (21:57)
[2023-03-17] MEDS: FLUoxetine HCL 20 MG CAPSULE 40 MG PO (21:59)
[2023-03-17 22:32] LABS: Magnesium 1.7 mg/dL (1.6-2.3)
[2023-03-17] MEDS: WATER FOR IRRIGATION, STERILE 1,000 ML BOTTLE 1000 ML (23:00)
[2023-03-18] VITALS (12 sets, daily range): BP systolic 113–138; BP diastolic 60–91; PULSE 76–110; RESP 16–20; TEMP 36.1–38.7; O2SAT 93–100
[2023-03-18] MEDS: HYDROmorphone HCL INJ (*CRX) 1 MG/ML SYR 0.5 MG IV PUSH (03:54)
[2023-03-18] MEDS: SODIUM CHLORIDE 0.9% IV 1,000 ML 125 ML IV CONT (03:54)
[2023-03-18] MEDS: PIPERACILLN/TAZ 3.375GM/NS50ML 3.375 GM/50 ML BAG IVPB ×3 (06:10→17:12)
[2023-03-18 06:17] LABS: Basophils Absolute Auto 0.1 K/mm3 (0.0-0.1); Basophils Percent Auto 0.5 % (0.2-1.2); Eosinophils Absolute Auto 0.1 K/mm3 (0-0.3); Eosinophils Percent Auto 0.8 % (0-4.4); Hematocrit 34.9 % (37.0-47.0); Hemoglobin 11.3 g/dL (12.0-15.0); Immature Granulocyte Percent A 0.8 % (0-0.5); Lymphocytes Absolute Auto 0.72 K/mm3 (0.9-3.2); Lymphocytes Percent Auto 5.7 % (18.3-44.2); Mean Corpuscular HGB Conc 32.4 g/dl (32-36); Mean Corpuscular Volume 98.9 fl (80-100); Mean Platelet Volume 9.7 fl (7.4-10.4); Monocytes Absolute Auto 1.2 K/mm3 (0.1-0.6); Monocytes Percent Auto 9.7 % (2.6-8.5); Neutrophils Absolute Auto 10.4 K/mm3 (1.3-6.7); Neutrophils Percent Auto 82.5 % (45.5-73.1); Platelet Count Result 143 k/mm3 (150-375); Red Blood Count 3.53 M/mm3 (4.2-5.4); White Blood Count 12.6 K/mm3 (4.5-10.0)
[2023-03-18] MEDS: LEVOTHYROXINE SODIUM 100 MCG TABLET PO (06:48)
[2023-03-18 06:49] LABS: Alanine Aminotransferase 26 U/L (6-35); Albumin Level 3.4 g/dL (3.5-5.1); Alkaline Phosphatase 101 U/L (38-126); Anion Gap 10 mmol/L (8-16); Aspartate Amino Transferase 24 U/L (14-36); Bilirubin,Total 0.6 mg/dL (0.2-1.3); Blood Urea Nitrogen 8 mg/dL (7-17); Calcium 8.1 mg/dL (8.4-10.2); Carbon Dioxide 15 mmol/L (22-30); Chloride 106 mmol/L (98-107); Estimated CRCL calculation 135 ml/min; Estimated Glomerular Filt Rate > 60; Glucose 285 mg/dL (65-110); Potassium 4.5 mmol/L (3.4-5.0); Sodium 131 mmol/L (137-145)
[2023-03-18] MEDS: HYDROcodone/acetaminophen (*CRX) 5-325 MG TABLET 1 TAB PO ×3 (06:57→21:04)
[2023-03-18] MEDS: PREGABALIN (*CRX) 50 MG CAPSULE 100 MG PO ×2 (08:05→17:06)
[2023-03-18] MEDS: LORATADINE 10 MG TABLET PO (08:05)
[2023-03-18] MEDS: buPROPion HCL XL (24 HR) 150 MG TABCR 300 MG PO (08:05)
[2023-03-18] MEDS: predniSONE 1 MG TABLET 3 MG PO (08:05)
[2023-03-18] MEDS: ALPRAZolam (*CRX) 0.5 MG TABLET PO ×2 (08:06→17:06)
[2023-03-18] MEDS: PANTOPRAZOLE 40 MG TABLET PO (08:06)
[2023-03-18 08:07] LABS: Glucose Point of Care 238 mg/dl (65-105)
[2023-03-18] MEDS: INSULIN ASPART (*BKC) 100 UNITS/ML SUB-Q ×4 (08:10→21:00)
[2023-03-18] MEDS: ONDANSETRON INJ 4 MG/2 ML VIAL IV PUSH (08:16)
--- NOTE | 2023-03-18 09:30 | WPDUROPN2 ---
Progress Note: A&P Assessment and Plan (1) Right ureteral stone: Code(s): N20.1 - Calculus of ureter Status: Acute Assessment and Plan: Stone not visible on kUB. Patient will need a Cystoscopy, right ureteroscopy with stone extraction, right stent exchange, right retrograde pyelogram, holmium laser in 1-2 weeks when infection resolves. She will need to f/u in the office for a repeat urine culture next week prior to her surgery to ensure infection has resolved. Will start Oxybutynin 5mg TID PRN for spasms/stent pain. Advance diet to regular, ok to remove pollock catheter today to ensure emptying of bladder. (2) Complicated UTI (urinary tract infection): Code(s): N39.0 - Urinary tract infection, site not specified Status: Acute Assessment and Plan: Continue Zosyn, tailor to culture sensitivity. (3) Sepsis: Code(s): A41.9 - Sepsis, unspecified organism Status: Acute Subjective Subjective Date/Time Seen: 03/18/23 09:30 Post Op day: 1 Interval history: Cystoscopy, right ureteroscopy with right ureteral stent placement, complex pollock catheter placement. Patient doing much better with pain today. She does note some flank spasms, but hasn't been able to eat d/t NPO status. She has a WBC of 12.6 and creatinine of 0.60. She remains on Zosyn and cultures are pending. Her fever was 99.0 at 0400. Review of Systems Cardiovascular: Cardiovascular: Denies chest pain Respiratory: Respiratory: Reports no additional respiratory complaints Gastrointestinal: Gastrointestinal: Denies abdominal pain, Denies nausea and Denies vomiting Genitourinary: Genitourinary: Denies hematuria, Denies pelvic pain and Reports flank pain Exam Const: General: cooperative and comfortable Resp: Effort & Inspection: normal respiratory effort Cardio: Rate: regular rate GI: GI Palp: Yes Soft to palpation and No Tenderness to palpation present (GI) : General: Yes CVA tenderness on the right Urinary Catheter: Urinary Catheter: patent and draining and urine clear Extrem: Right lower extremity: no edema Left lower extremity: no edema Objective Data Vital Signs Vital Signs: Vital Signs - 24 hr 03/17/23 13:30 03/17/23 14:12 03/17/23 14:13 Temperature 103.2 F H Pulse Rate 127 H 123 H 121 H Respiratory Rate 18 23 H 24 H Blood Pressure 118/64 104/78 Pulse Oximetry 98 97 95 Oxygen Delivery Oxygen Flow Rate 03/17/23 14:15 03/17/23 14:21 03/17/23 14:42 Temperature Pulse Rate 121 H 120 H 106 H Respiratory Rate 15 19 25 H Blood Pressure 101/76 114/72 Pulse Oximetry 97 99 Oxygen Delivery Oxygen Flow Rate 03/17/23 15:03 03/17/23 15:15 03/17/23 15:17 Temperature 101.2 F H Pulse Rate 109 H 108 H 109 H Respiratory Rate 20 20 20 Blood Pressure 140/75 91/69 L Pulse Oximetry 96 96 94 Oxygen Delivery Oxygen Flow Rate 03/17/23 16:00 03/17/23 16:01 03/17/23 16:02 Temperature Pulse Rate 107 H 106 H 107 H Respiratory Rate 20 20 20 Blood Pressure 118/93 H 113/56 L Pulse Oximetry Oxygen Delivery Oxygen Flow Rate 03/17/23 17:34 03/17/23 17:45 03/17/23 18:00 Temperature 97.5 F L Pulse Rate 105 H 105 H 105 H Respiratory Rate 16 20 24 H Blood Pressure 101/73 128/89 135/84 Pulse Oximetry 92 94 94 Oxygen Delivery Simple Face Mask Nasal Cannula Nasal Cannula Oxygen Flow Rate 8 2 2 03/17/23 18:15 03/17/23 18:29 03/17/23 19:02 Temperature 102.9 F H Pulse Rate 105 H 109 H Respiratory Rate 20 20 Blood Pressure 139/88 140/90 Pulse Oximetry 94 94 Oxygen Delivery Nasal Cannula Nasal Cannula Oxygen Flow Rate 2 2 03/17/23 18:50 03/17/23 20:07 03/17/23 21:31 Temperature 102.9 F H 102.7 F H 101.2 F H Pulse Rate 137 H Respiratory Rate 22 H Blood Pressure 127/109 H Pulse Oximetry 90 Oxygen Delivery Oxygen Flow Rate 03/17/23 19:05 03/17/23 19:35 03/17/23 20:35 Temperature 102.5 F H 102.7 F H 100.3 F H Pulse
[2023-03-18 11:29] LABS: Glucose Point of Care 256 mg/dl (65-105)
[2023-03-18] MEDS: oxyBUTYnin CHLORIDE 5 MG TABLET PO ×2 (11:40→17:08)
[2023-03-18 16:19] LABS: Glucose Point of Care 299 mg/dl (65-105)
[2023-03-18] MEDS: FLUoxetine HCL 20 MG CAPSULE 40 MG PO (21:00)
[2023-03-18] MEDS: CYCLOBENZAPRINE HCL 10 MG TABLET PO (21:00)
[2023-03-18 22:00] LABS: Glucose Point of Care 308 mg/dl (65-105)
[2023-03-18] MEDS: ACETAMINOPHEN 325 MG TABLET 650 MG PO (23:45)
[2023-03-19] VITALS (11 sets, daily range): BP systolic 119–148; BP diastolic 67–88; PULSE 97–110; RESP 16–20; TEMP 36.9–39.2; O2SAT 96–100
[2023-03-19] MEDS: PIPERACILLN/TAZ 3.375GM/NS50ML 3.375 GM/50 ML BAG IVPB ×3 (00:08→11:06)
[2023-03-19] MEDS: oxyBUTYnin CHLORIDE 5 MG TABLET PO ×3 (00:09→20:37)
[2023-03-19] MEDS: LEVOTHYROXINE SODIUM 100 MCG TABLET PO (05:46)
[2023-03-19] MEDS: ACETAMINOPHEN 325 MG TABLET 650 MG PO (05:46)
[2023-03-19 08:07] LABS: Glucose Point of Care 335 mg/dl (65-105)
[2023-03-19] MEDS: PREGABALIN (*CRX) 50 MG CAPSULE 100 MG PO ×2 (08:13→16:59)
[2023-03-19] MEDS: LORATADINE 10 MG TABLET PO (08:14)
[2023-03-19] MEDS: buPROPion HCL XL (24 HR) 150 MG TABCR 300 MG PO (08:14)
[2023-03-19] MEDS: PANTOPRAZOLE 40 MG TABLET PO (08:14)
[2023-03-19] MEDS: HYDROcodone/acetaminophen (*CRX) 5-325 MG TABLET 1 TAB PO ×3 (08:14→20:36)
[2023-03-19] MEDS: ALPRAZolam (*CRX) 0.5 MG TABLET PO ×2 (08:14→17:00)
[2023-03-19] MEDS: predniSONE 1 MG TABLET 3 MG PO (08:14)
[2023-03-19] MEDS: INSULIN ASPART (*BKC) 100 UNITS/ML SUB-Q ×4 (08:15→20:48)
[2023-03-19 09:49] LABS: Hematocrit 32.6 % (37.0-47.0); Hemoglobin 10.7 g/dL (12.0-15.0); Mean Corpuscular HGB Conc 32.8 g/dl (32-36); Mean Corpuscular Hemoglobin 31.5 pg (26-34); Mean Corpuscular Volume 95.9 fl (80-100); Mean Platelet Volume 10.1 fl (7.4-10.4); Platelet Count Result 159 k/mm3 (150-375); Red Cell Distribution Width 12.3 % (11.5-14.5)
[2023-03-19 10:03] LABS: Anion Gap 7 mmol/L (8-16); Blood Urea Nitrogen 7 mg/dL (7-17); Calcium 8.1 mg/dL (8.4-10.2); Carbon Dioxide 19 mmol/L (22-30); Chloride 102 mmol/L (98-107); Estimated CRCL calculation 117 ml/min; Estimated Glomerular Filt Rate > 60; Glucose 328 mg/dL (65-110); Potassium 3.1 mmol/L (3.4-5.0); Sodium 128 mmol/L (137-145)
--- NOTE | 2023-03-19 10:38 | WPDUROPN2 ---
Progress Note: A&P Assessment and Plan (1) Right ureteral stone: Code(s): N20.1 - Calculus of ureter Status: Acute Assessment and Plan: KUB doesn't show her stone. The plan will be to do a right ureteroscopy with stone extraction and stent exchange as an outpatient in 1-2 weeks once infection is gone. (2) Complicated UTI (urinary tract infection): Code(s): N39.0 - Urinary tract infection, site not specified Status: Acute Assessment and Plan: Urine culture is pending sensitiviites, but positive for gram negative bacilli. Continue Zosyn. Fever likely from UTI, patient thinks it's from RA flare. She wishes to go home AMA, I advised her that if she does she may become septic if she is not sent home with culture sensitive antibiotics and she will assume financial responsibility for her hospital stay. She is unable to get her Rinvoq injection from home to calm her flare donw. I advised her to stay until she is fever free for 24 hours and to ensure she is on the correct antibiotics. She agrees to wait until we at least have the sensitivity back to put her on the right antibiotics, but wants us to call her Rhumatologist and see if we can get something to improve her RA flare and she will stay until her fever is resolved for 24 hours. I will discuss this plan with the hospitalist and see if they can call Dr. Crystal Philip at [facility] [phone]. (3) Type 2 diabetes mellitus with hyperglycemia: Code(s): E11.65 - Type 2 diabetes mellitus with hyperglycemia Status: Acute (4) Immunosuppressed status: Code(s): D84.9 - Immunodeficiency, unspecified Status: Acute Subjective Subjective Date/Time Seen: 03/19/23 10:38 Post Op day: 2 Interval history: Cystoscopy, right ureteroscopy with right ureteral stent placement, complex pollock catheter placement. Patient spiked a fever of 102.6 this morning around 6am that came back down to 98.6 after Tylenol. She has RA and has missed her Rinvoq injection through this hospital stay and notes having a severe flare of joint pain which she states causes her fever normally. She is threatening to leave AMA d/t needing her Rinvoq which we cannot provide here at [facility] and her cannot find at home. She is tolerating her diet. Urine culture is preliminarily growing gram negative bacilli and blood cultures are preliminarily negative. She has a WBC of 8.0 which is improved from 12.6 and creatinine of 0.70, glucose is elevated >300. She remains on Zosyn and culture sensitivities are pending. She is tolerating her stent well. Pain is well managed with Hydrocodone. Review of Systems Constitutional: Constitutional: Reports body ache(s), Reports difficulty sleeping, Reports lethargy and Reports malaise Cardiovascular: Cardiovascular: Denies chest pain Respiratory: Respiratory: Reports no additional respiratory complaints Gastrointestinal: Gastrointestinal: Denies abdominal pain, Denies nausea and Denies vomiting Genitourinary: Genitourinary: Denies hematuria, Denies nocturia, Denies dysuria, Denies pelvic pain, Denies flank pain, Denies urinary incontinence, Denies urinary hesitancy and Denies urinary urgency Musculoskeletal: Musculoskeletal: Reports arthralgias and Reports joint swelling Exam Const: General: anxious, lethargic, tired appearing, uncomfortable and overweight Resp: Effort & Inspection: normal respiratory effort Cardio: Rate: regular rate : General: Yes no CVA tenderness Objective Data Vital Signs Vital Signs: Vital Signs - 24 hr 03/18/23 12:00 03/18/23 14:00 03/18/23 16:00 Temperature 99.2 F Pulse Rate 95 100 99 Respiratory Rate 16 Blood Pressure 113/60 Pulse Oximetry 96 Oxygen Delivery 03/18/23 22:34 03/18/23 20:00 03/18/23 23:45 Temperature 96.9 F L 101.7 F H Pulse Rate 110 H Respiratory Rate 18 Blood Pressure 138/91 H Pulse Oximetry 100 Oxygen Delivery
[2023-03-19 11:54] LABS: Glucose Point of Care 321 mg/dl (65-105)
--- NOTE | 2023-03-19 12:32 | PHAR ---
HOME MED: RINVOQ 30 MG TABLET; SENT DOWN IN ORIGINAL BOTTLE FROM CHIEF RISK OFFICER, NO LABEL FROM PHARMACY THAT DISPENSED THE MED ON HOW PATIENT SHOULD TAKE; TABLETS IN THE BOTTLE CONFIRMED TO BE RINVOQ 30 MG TABLET. VERIFIED BY PHARMACY.
[2023-03-19] MEDS: ONDANSETRON INJ 4 MG/2 ML VIAL IV PUSH (13:42)
--- NOTE | 2023-03-19 13:53 | PM.IMPN ---
Progress Note: A&P Assessment and Plan (1) Sepsis: Code(s): A41.9 - Sepsis, unspecified organism Status: Acute Assessment and Plan: Patient presents with symptoms of sepsis including tachycardia, fever and leukocytosis. [place] related to UTI. Blood cultures remained negative. Urine culture results noted. Plan to switch antibiotics to cefepime. (2) Urinary tract infection: Code(s): N39.0 - Urinary tract infection, site not specified Status: Acute Assessment and Plan: UA noted. Urine culture growing Enterobacter cloaca gag complex. Blood cultures are no growth to date. Urine culture sensitivity noted. Antibiotics to be adjusted. Follow fever curve. White count has normalized (3) Right renal stone: Code(s): N20.0 - Calculus of kidney Status: Acute Assessment and Plan: On admission, CT of the abdomen and pelvis showed obstructing 6 mm stone in the infundibulum draining the upper pole the right kidney with secondary mild hydronephrosis. Patient underwent cystoscopy with right ureteroscopy with placement of right ureteral stent and upper pole on 03/19. KUB does not accurately visualize the kidney stone. (4) Hydronephrosis of right kidney: Code(s): N13.30 - Unspecified hydronephrosis Status: Acute Assessment and Plan: As above (5) Hypokalemia: Code(s): E87.6 - Hypokalemia Status: Acute Assessment and Plan: Potassium low again today. Metabolic nongap acidosis noted related to diarrhea. Replace. Okay to stop tele (she is refusing to wear as well) (6) Immunosuppressed status: Code(s): D84.9 - Immunodeficiency, unspecified Status: Acute Assessment and Plan: For Rheumatoid arthritis and Crohn's Disease. Hold immunosuppressive agents until infection cleared. Continue Prednisone. Consider stress dose steroids. Left message with her Rheum (7) Obstructive sleep apnea on CPAP: Code(s): G47.33 - Obstructive sleep apnea (adult) (pediatric) Status: Acute Assessment and Plan: Stable. Tolerating BiPAP. Continue the same (8) Type 2 diabetes mellitus with hyperglycemia: Code(s): E11.65 - Type 2 diabetes mellitus with hyperglycemia Status: Acute Assessment and Plan: A1c 7.0. The patient's blood glucose was reviewed on 03/19 Glucose remains well controlled. Continue AccuCheks covering with sliding scale. Hypoglycemia protocol available as needed. Add lantus. Diabetic diet. Plan Hyponatremia - check urine studies. Check TSH. Subjective Date/time seen: 03/19/23 13:53 Interval history: 42yo female with Crohns, RA, DM and KIMBERLY here for fever and found to have UTI with obsructing renal stone. Patient having fevers still this morning. She is having diarrhea which is not uncommon for her that she states is related to her Crohn's disease. She had a recent gastric bypass recovering from this. She denies any dysuria or hematuria. She is voiding normally since the [place] catheter was removed. She slept poorly because a noise. She complains of mid back pain. She also complains of active RA flare and she feels this is the reason she is having fevers. Exam Narrative: Tm 102.6 98.5 148/78 110 16 100% ra Gen - NARD Chest - CTA bilaterally, nml RR CV - RRR S1/S2. Tele showing no significant dysrhythmais Abd - Soft, obese, NT Ext - No pedal edema. no active hand tenosynovitis Neuro - Alert and oriented. Nonfocal exam. Psych - Nml mood and affect Skin - Warm and dry Objective Data Vital Signs Vital Signs: Vital Signs - 24 hr 03/18/23 14:00 03/18/23 16:00 03/18/23 22:34 Temperature 99.2 F 96.9 F L Pulse Rate 100 99 110 H Respiratory Rate 16 18 Blood Pressure 113/60 138/91 H Pulse Oximetry 96 100 Oxygen Delivery 03/18/23 20:00 03/18/23 23:45 03/19/23 00:42 Temperature 101.7 F H 101 F H Pulse Rate Respiratory Rate Blood
[2023-03-19] MEDS: POTASSIUM CHLORIDE 20 MEQ PACKET (FOR LIQUID) 40 MEQ PO (14:49)
[2023-03-19 16:37] LABS: Glucose Point of Care 263 mg/dl (65-105)
[2023-03-19] MEDS: CEFEPIME 2 GM/NS 50 ML 2 GM/50 ML BAG IVPB (16:59)
[2023-03-19 18:48] LABS: Creatinine Urine 47.2 mg/dL; Urea Random Urine 271 MG/DL
[2023-03-19 18:49] LABS: Sodium Urine Random 30 meq/L
[2023-03-19] MEDS: FLUoxetine HCL 20 MG CAPSULE 40 MG PO (20:37)
[2023-03-19] MEDS: CYCLOBENZAPRINE HCL 10 MG TABLET PO (20:37)
[2023-03-19] MEDS: INSULIN GLARGINE (*BKC) 100 UNITS/ML 15 UNITS SUB-Q (20:38)
[2023-03-19] MEDS: guaiFENesin 12 HR 600 MG TABCR PO (22:19)
[2023-03-19 22:40] LABS: Glucose Point of Care 237 mg/dl (65-105)
[2023-03-20] VITALS (8 sets, daily range): BP systolic 128–146; BP diastolic 82–89; PULSE 88–110; RESP 16–20; TEMP 35.6–38.7; O2SAT 91–97; BMI 45.3
[2023-03-20] MEDS: CEFEPIME 2 GM/NS 50 ML 2 GM/50 ML BAG IVPB ×3 (05:54→21:19)
[2023-03-20] MEDS: LEVOTHYROXINE SODIUM 100 MCG TABLET PO (05:54)
[2023-03-20] MEDS: oxyBUTYnin CHLORIDE 5 MG TABLET PO ×2 (06:01→08:42)
[2023-03-20] MEDS: HYDROcodone/acetaminophen (*CRX) 5-325 MG TABLET 1 TAB PO ×3 (06:01→20:40)
[2023-03-20 06:37] LABS: Hematocrit 35.3 % (37.0-47.0); Hemoglobin 11.6 g/dL (12.0-15.0); Mean Corpuscular HGB Conc 32.9 g/dl (32-36); Mean Corpuscular Hemoglobin 31.7 pg (26-34); Mean Corpuscular Volume 96.4 fl (80-100); Mean Platelet Volume 10.2 fl (7.4-10.4); Platelet Count Result 189 k/mm3 (150-375); Red Blood Count 3.66 M/mm3 (4.2-5.4); Red Cell Distribution Width 12.2 % (11.5-14.5); White Blood Count 8.4 K/mm3 (4.5-10.0)
[2023-03-20 06:49] LABS: Anion Gap 9 mmol/L (8-16); Blood Urea Nitrogen 6 mg/dL (7-17); Calcium 8.8 mg/dL (8.4-10.2); Carbon Dioxide 24 mmol/L (22-30); Chloride 99 mmol/L (98-107); Estimated CRCL calculation 117 ml/min; Estimated Glomerular Filt Rate > 60; Glucose 236 mg/dL (65-110); Sodium 132 mmol/L (137-145)
[2023-03-20 06:56] LABS: Alanine Aminotransferase 29 U/L (6-35); Albumin Level 3.8 g/dL (3.5-5.1); Alkaline Phosphatase 112 U/L (38-126); Aspartate Amino Transferase 33 U/L (14-36); Bilirubin,Total 0.6 mg/dL (0.2-1.3); Magnesium 1.7 mg/dL (1.6-2.3)
[2023-03-20 07:01] LABS: Iron 29 ug/dL (37-170)
[2023-03-20 07:10] LABS: Percent Iron Saturation 10 % (20-50)
[2023-03-20 08:10] LABS: Glucose Point of Care 233 mg/dl (65-105)
[2023-03-20] MEDS: POTASSIUM CHLORIDE 20 MEQ PACKET (FOR LIQUID) 40 MEQ PO (08:41)
[2023-03-20] MEDS: MAGNESIUM SULF 2 GM/WATER 50ML 2 GM/50 ML BAG IVPB (08:41)
[2023-03-20] MEDS: ALPRAZolam (*CRX) 0.5 MG TABLET PO ×2 (08:42→17:10)
[2023-03-20] MEDS: guaiFENesin 12 HR 600 MG TABCR PO ×2 (08:42→20:36)
[2023-03-20] MEDS: PREGABALIN (*CRX) 50 MG CAPSULE 100 MG PO ×2 (08:42→17:10)
[2023-03-20] MEDS: LORATADINE 10 MG TABLET PO (08:42)
[2023-03-20] MEDS: buPROPion HCL XL (24 HR) 150 MG TABCR 300 MG PO (08:43)
[2023-03-20] MEDS: PANTOPRAZOLE 40 MG TABLET PO (08:43)
[2023-03-20] MEDS: ENOXAPARIN 40 MG/0.4 ML SYRINGE SUB-Q (08:43)
[2023-03-20] MEDS: predniSONE 1 MG TABLET 3 MG PO (08:43)
[2023-03-20] MEDS: INSULIN ASPART (*BKC) 100 UNITS/ML SUB-Q ×4 (08:50→21:20)
[2023-03-20 09:29] LABS: Folic Acid 16.3 ng/mL (2.76->20)
--- NOTE | 2023-03-20 11:27 | WPDUROPN2 ---
Progress Note: A&P Assessment and Plan (1) Right ureteral stone: Code(s): N20.1 - Calculus of ureter Status: Acute Assessment and Plan: KUB doesn't show her stone. The plan will be to do a right ureteroscopy with stone extraction and stent exchange as an outpatient in 1-2 weeks once infection is gone. (2) Sepsis: Code(s): A41.9 - Sepsis, unspecified organism Status: Acute (3) Complicated UTI (urinary tract infection): Code(s): N39.0 - Urinary tract infection, site not specified Status: Acute Assessment and Plan: Urine culture is growing Enterococcus, blood cultures positive for gram negative bacilli. Continue Cefepime. Fever has resolved. Ok to go home when blood culture sensitivity is resulted and patient is sent home on 14 days of culture appropriate antibiotics. NO further evaluation needed. (4) Type 2 diabetes mellitus with hyperglycemia: Code(s): E11.65 - Type 2 diabetes mellitus with hyperglycemia Status: Acute (5) Immunosuppressed status: Code(s): D84.9 - Immunodeficiency, unspecified Status: Acute Subjective Subjective Date/Time Seen: 03/20/23 11:27 Post Op day: 3 Interval history: Cystoscopy, right ureteroscopy with right ureteral stent placement, complex pollock catheter placement. Patient's fever broke yesterday at 2pm. She has RA and has missed her Rinvoq injection through this hospital stay and notes having a severe flare of joint pain, but it has been more tolerable with Hydrocodone. She is more calm today. She is tolerating her diet. Urine culture is preliminarily growing Enterococcus and blood cultures are preliminarily growing gram negative bacillius. She was changed to Cefepime by Dr. Soto. She is tolerating her stent well. Pain is well managed with Hydrocodone. Review of Systems Respiratory: Respiratory: Reports no additional respiratory complaints Gastrointestinal: Gastrointestinal: Denies abdominal pain, Denies nausea and Denies vomiting Genitourinary: Genitourinary: Denies hematuria, Denies nocturia, Denies dysuria, Denies pelvic pain, Denies flank pain, Denies urinary incontinence and Denies urinary urgency Exam Const: General: cooperative and comfortable Resp: Effort & Inspection: normal respiratory effort Cardio: Rate: regular rate GI: GI Palp: Yes Soft to palpation and No Tenderness to palpation present (GI) : General: Yes no CVA tenderness Extrem: Right lower extremity: no edema Left lower extremity: no edema Objective Data Vital Signs Vital Signs: Vital Signs - 24 hr 03/19/23 14:00 03/19/23 15:59 03/19/23 22:17 Temperature 100.2 F H 99.5 F Pulse Rate 99 Respiratory Rate 16 Blood Pressure 119/67 Pulse Oximetry 98 97 Oxygen Delivery Autopap Fraction of Inspired Oxygen 03/19/23 22:00 03/20/23 06:00 03/20/23 08:11 Temperature 98.9 F 98.4 F Pulse Rate 102 H 98 Respiratory Rate 20 20 Blood Pressure 145/88 H 138/85 Pulse Oximetry 96 91 92 Oxygen Delivery Room Air Fraction of Inspired Oxygen 21 Intake/Output Intake/Output: Intake & Output 03/17/23 03/18/23 03/19/23 03/20/23 23:59 23:59 23:59 23:59 Intake Total 3600 2830 1180 1620 Output Total 130 2450 Balance 3470 380 1180 1620 Meds/Results Medications: Active Medications Generic Name Dose Route Start Last Admin Trade Name Freq PRN Reason Stop Dose Admin Acetaminophen 650 mg 03/17/23 17:53 03/19/23 05:46 Acetaminophen 325 Mg Tablet PO 650 mg Q6H PRN Administration Mild Pain (1-3) or Fever Hydrocodone Bitart/Acetaminophen 1 tab 03/17/23 17:53 03/20/23 06:01 Hydrocodone/Acetaminophen (*Crx) 5-325 Mg Tablet PO 1 tab Q6H PRN Administration Pain Rated 4-6 Alprazolam 0.5 mg 03/17/23 21:25 03/20/23 08:42 Alprazolam (*Crx) 0.5 Mg Tablet PO 0.5 mg BID TOLU Administration Bupropion HCl 300 mg 03/18/23 09:00 03/20/23 08:43 Bupropion Hcl Xl (24
[2023-03-20 11:32] LABS: Glucose Point of Care 261 mg/dl (65-105)
--- NOTE | 2023-03-20 12:32 | PM.IMPN ---
Progress Note: A&P Assessment and Plan (1) Sepsis: Code(s): A41.9 - Sepsis, unspecified organism Status: Acute Assessment and Plan: Patient presents with symptoms of sepsis including tachycardia, fever and leukocytosis. [place] related to UTI. Blood cultures returned positive for Enterobacter hormaechei. Urine culture results noted. Changed to cefepime 03/20. Advance frequency given +BCx. Stop all immunosuppressive agents. (2) Urinary tract infection: Code(s): N39.0 - Urinary tract infection, site not specified Status: Acute Assessment and Plan: UA noted. Urine culture growing Enterobacter cloacae complex. Blood cultures positive in one anaerobic bottle for enterobacter; sensitivities pending. Urine culture sensitivity noted. Antibiotics to be adjusted as above. White count has normalized. Fevers resolving. (3) Right renal stone: Code(s): N20.0 - Calculus of kidney Status: Acute Assessment and Plan: On admission, CT of the abdomen and pelvis showed obstructing 6 mm stone in the infundibulum draining the upper pole the right kidney with secondary mild hydronephrosis. Patient underwent cystoscopy with right ureteroscopy with placement of right ureteral stent and upper pole on 03/19. KUB does not accurately visualize the kidney stone. Appreciate Urology input. (4) Hydronephrosis of right kidney: Code(s): N13.30 - Unspecified hydronephrosis Status: Acute Assessment and Plan: As above (5) Hypokalemia: Code(s): E87.6 - Hypokalemia Status: Acute Assessment and Plan: Potassium low again today. Metabolic nongap acidosis resolved. Replace again. (6) Immunosuppressed status: Code(s): D84.9 - Immunodeficiency, unspecified Status: Acute Assessment and Plan: For Rheumatoid arthritis and Crohn's Disease. Holding immunosuppressive agents until infection cleared. Continue Prednisone. Consider stress dose steroids. Discussed with her Rheumatology team (7) Obstructive sleep apnea on CPAP: Code(s): G47.33 - Obstructive sleep apnea (adult) (pediatric) Status: Acute Assessment and Plan: Stable. Tolerating BiPAP. Continue the same (8) Type 2 diabetes mellitus with hyperglycemia: Code(s): E11.65 - Type 2 diabetes mellitus with hyperglycemia Status: Acute Assessment and Plan: A1c 7.0. The patient's blood glucose was reviewed on 8/18 Glucose remains poorly controlled. Continue AccuCheks covering with sliding scale. Hypoglycemia protocol available as needed. Diabetic diet. Advance lantus Plan Hyponatremia - TSH normal. Na better. [place] related to pain. Follow Subjective Date/time seen: 03/20/23 12:32 Interval history: 42yo female with Crohns, RA, DM and KIMBERLY here for fever and found to have UTI with obsructing renal stone. Feels much better. Slept well. Eating okay. No fevers of chills. No dysuria or hematuria. Exam Narrative: Tm 100.2 98.4 138/85 98 20 92% ra Gen - NARD Chest - CTA bilaterally, nml RR CV - RRR S1/S2 Abd - Soft, obese, NT Ext - No pedal edema Psych - Nml mood and affect Skin - Warm and dry Objective Data Vital Signs Vital Signs: Vital Signs - 24 hr 03/19/23 14:00 03/19/23 15:59 03/19/23 22:17 Temperature 100.2 F H 99.5 F Pulse Rate 99 Respiratory Rate 16 Blood Pressure 119/67 Pulse Oximetry 98 97 Oxygen Delivery Autopap Fraction of Inspired Oxygen 03/19/23 22:00 03/20/23 06:00 03/20/23 08:11 Temperature 98.9 F 98.4 F Pulse Rate 102 H 98 Respiratory Rate 20 20 Blood Pressure 145/88 H 138/85 Pulse Oximetry 96 91 92 Oxygen Delivery Room Air Fraction of Inspired Oxygen 21 03/20/23 08:45 Temperature Pulse Rate Respiratory Rate Blood Pressure Pulse Oximetry Oxygen Delivery Room Air Fraction of Inspired Oxygen Intake/Output Intake/Output: Intake & Output 08
[2023-03-20 17:00] LABS: Glucose Point of Care 275 mg/dl (65-105)
[2023-03-20] MEDS: FLUoxetine HCL 20 MG CAPSULE 40 MG PO (20:36)
[2023-03-20] MEDS: CYCLOBENZAPRINE HCL 10 MG TABLET PO (20:36)
[2023-03-20] MEDS: INSULIN GLARGINE (*BKC) 100 UNITS/ML 20 UNITS SUB-Q (20:36)
[2023-03-20] MEDS: ACETAMINOPHEN 325 MG TABLET 650 MG PO (20:41)
[2023-03-20] MEDS: ONDANSETRON INJ 4 MG/2 ML VIAL IV PUSH (20:45)
[2023-03-20 21:06] LABS: Glucose Point of Care 221 mg/dl (65-105)
[2023-03-20] MEDS: IBUPROFEN 600 MG TABLET PO (23:05)
[2023-03-21 00:05] VITALS: TEMP 39.1
[2023-03-21] MEDS: HYDROmorphone HCL INJ (*CRX) 1 MG/ML SYR 0.5 MG IV PUSH ×3 (00:54→21:18)
[2023-03-21 02:42] VITALS: TEMP 37.4
[2023-03-21 06:00] VITALS: BP 137/84; PULSE 105; RESP 18; TEMP 37.8; O2SAT 96
[2023-03-21] MEDS: CEFEPIME 2 GM/NS 50 ML 2 GM/50 ML BAG IVPB ×3 (06:13→22:06)
[2023-03-21] MEDS: LEVOTHYROXINE SODIUM 100 MCG TABLET PO (06:13)
[2023-03-21 06:28] LABS: Anion Gap 6 mmol/L (8-16); Blood Urea Nitrogen 5 mg/dL (7-17); Calcium 8.2 mg/dL (8.4-10.2); Carbon Dioxide 27 mmol/L (22-30); Chloride 101 mmol/L (98-107); Estimated CRCL calculation 159 ml/min; Estimated Glomerular Filt Rate > 60; Glucose 203 mg/dL (65-110); Magnesium 1.8 mg/dL (1.6-2.3); Potassium 3.3 mmol/L (3.4-5.0); Sodium 134 mmol/L (137-145)
--- NOTE | 2023-03-21 07:19 | WPDUROPN2 ---
Progress Note: A&P Assessment and Plan (1) Right ureteral stone: Code(s): N20.1 - Calculus of ureter Status: Acute Assessment and Plan: Stent in appropriate position, continue IV antibiotics. (2) Sepsis: Code(s): A41.9 - Sepsis, unspecified organism Status: Acute Assessment and Plan: Concern for pneumonia on CT with new cough, consider work up of pneumonia. Discussed with nursing who will discuss further with hospitalist service. Subjective Subjective Date/Time Seen: 03/21/23 07:19 Interval history: Fevers o/n. CT shows stent in appropriate position, findings concerning for pneumonia. Exam Narrative: NAD, A&Ox3 RRR eWOB S/NT/ND Objective Data Vital Signs Vital Signs: Vital Signs - 24 hr 03/20/23 08:11 03/20/23 08:45 03/20/23 13:59 Temperature 96.1 F L Pulse Rate 88 Respiratory Rate 18 Blood Pressure 128/89 Pulse Oximetry 92 94 Oxygen Delivery Room Air Room Air Fraction of Inspired Oxygen 21 03/20/23 20:41 03/20/23 20:00 03/20/23 22:45 Temperature 100.6 F H 100.6 F H 101.6 F H Pulse Rate 110 H Respiratory Rate 16 Blood Pressure 146/82 H Pulse Oximetry 97 Oxygen Delivery Fraction of Inspired Oxygen 03/20/23 23:05 03/21/23 00:05 03/21/23 02:42 Temperature 101.6 F H 102.3 F H 99.4 F Pulse Rate Respiratory Rate Blood Pressure Pulse Oximetry Oxygen Delivery Fraction of Inspired Oxygen 03/20/23 23:15 03/21/23 06:00 Temperature 100.0 F H Pulse Rate 101 H 105 H Respiratory Rate 18 Blood Pressure 137/84 Pulse Oximetry 96 96 Oxygen Delivery Autopap Fraction of Inspired Oxygen Intake/Output Intake/Output: Intake & Output 03/18/23 03/19/23 03/20/23 03/21/23 23:59 23:59 23:59 23:59 Intake Total 2830 1180 1770 250 Output Total 2450 Balance 380 1180 1770 250 Meds/Results Medications: Active Medications Generic Name Dose Route Start Last Admin Trade Name Freq PRN Reason Stop Dose Admin Acetaminophen 650 mg 03/17/23 17:53 03/20/23 20:41 Acetaminophen 325 Mg Tablet PO 650 mg Q6H PRN Administration Mild Pain (1-3) or Fever Hydrocodone Bitart/Acetaminophen 1 tab 03/17/23 17:53 03/20/23 20:40 Hydrocodone/Acetaminophen (*Crx) 5-325 Mg Tablet PO 1 tab Q6H PRN Administration Pain Rated 4-6 Alprazolam 0.5 mg 03/17/23 21:25 03/20/23 17:10 Alprazolam (*Crx) 0.5 Mg Tablet PO 0.5 mg BID TOLU Administration Bupropion HCl 300 mg 03/18/23 09:00 03/20/23 08:43 Bupropion Hcl Xl (24 Hr) 150 Mg Tabcr PO 300 mg DAILY TOLU Administration Calcium Carbonate 500 mg 03/18/23 09:00 03/20/23 17:10 Calcium/Vitamin D 500 Mg Tablet PO 500 mg BID TOLU Administration Cyclobenzaprine HCl 10 mg 03/17/23 21:35 03/20/23 20:36 Cyclobenzaprine Hcl 10 Mg Tablet PO 10 mg HS TOLU Administration Dextrose 12.5 gm 03/17/23 17:53 Dextrose 50% 25 Gm/50 Ml Syringe IV PUSH PRN PRN Hypoglycemia Protocol Enoxaparin Sodium 40 mg 03/20/23 09:00 03/20/23 08:43 Enoxaparin 40 Mg/0.4 Ml Syringe SUB-Q 40 mg DAILY TOLU Administration Fentanyl Citrate 25 mcg 03/17/23 17:16 Fentanyl Citrate Inj (*Crx) 100 Mcg/2 Ml Vial IV PUSH Q2M PRN Pain Fluoxetine HCl 40 mg 03/17/23 21:20 03/20/23 20:36 Fluoxetine Hcl 20 Mg Capsule PO 40 mg HS TOLU Administration Glucagon 1 mg 03/17/23 17:53 Glucagon For Inj 1 Mg Vial IM PRN PRN Hypoglycemia Protocol Glucose 15 gm 03/17/23 17:53 Glucose Oral Gel 15 Gm Of Glucse In 37.5 Gm Tube PO PRN PRN Hypoglycemia Protocol Guaifenesin 600 mg 03/20/23 09:00 03/20/23 20:36 Guaifenesin 12 Hr 600 Mg Tabcr PO 600 mg Q12HR TOLU Administration Hydromorphone HCl 0.5 mg 03/17/23 16:53 03/21/23 00:54 Hydromorphone Hcl Inj (*Crx) 1 Mg/Ml Syr IV PUSH 0.5 mg Q4H PRN Administration Pain Rated 7-10 Dextrose 1,000 mls
[2023-03-21 07:31] LABS: SARS-CoV-2 RNA PCR Negative (Negative)
[2023-03-21 07:53] LABS: Glucose Point of Care 182 mg/dl (65-105)
[2023-03-21] MEDS: ONDANSETRON INJ 4 MG/2 ML VIAL IV PUSH (08:27)
[2023-03-21] MEDS: predniSONE 1 MG TABLET 3 MG PO (08:28)
[2023-03-21] MEDS: PANTOPRAZOLE 40 MG TABLET PO (08:28)
[2023-03-21] MEDS: guaiFENesin 12 HR 600 MG TABCR PO ×2 (08:28→20:37)
[2023-03-21] MEDS: oxyBUTYnin CHLORIDE 5 MG TABLET PO ×3 (08:28→16:17)
[2023-03-21] MEDS: ALPRAZolam (*CRX) 0.5 MG TABLET PO ×2 (08:28→16:17)
[2023-03-21] MEDS: PREGABALIN (*CRX) 50 MG CAPSULE 100 MG PO ×2 (08:28→16:17)
[2023-03-21] MEDS: LORATADINE 10 MG TABLET PO (08:28)
[2023-03-21] MEDS: buPROPion HCL XL (24 HR) 150 MG TABCR 300 MG PO (08:28)
[2023-03-21] MEDS: ENOXAPARIN 40 MG/0.4 ML SYRINGE SUB-Q (08:29)
[2023-03-21] MEDS: ACETAMINOPHEN 325 MG TABLET 650 MG PO ×2 (08:34→18:17)
[2023-03-21] MEDS: VANCOMYCIN 1,250 MG/NS 250 ML 1,250 MG/250 ML BAG 166.67 MG IVPB ×2 (09:20→12:45)
[2023-03-21] MEDS: MAGNESIUM SULF 2 GM/WATER 50ML 2 GM/50 ML BAG IVPB (09:20)
[2023-03-21] MEDS: HYDROcodone/acetaminophen (*CRX) 5-325 MG TABLET 1 TAB PO ×2 (09:23→16:17)
[2023-03-21] MEDS: POTASSIUM CHLORIDE 20 MEQ ER TABLET 40 MEQ PO (09:23)
[2023-03-21] MEDS: AZITHROMYCIN 500 MG/NS 250 ML 500 MG/250 ML BAG 250 MG IVPB (09:27)
[2023-03-21 11:07] LABS: NT Pro B Type Natriuretic Pept 1090 pg/mL (19.9-100)
--- NOTE | 2023-03-21 11:11 | PM.IMPN ---
Progress Note: A&P Assessment and Plan (1) Sepsis: Code(s): A41.9 - Sepsis, unspecified organism Status: Acute Assessment and Plan: Patient presents with symptoms of sepsis including tachycardia, fever and leukocytosis. [place] related to UTI. Zosyn started. Blood cultures returned positive for Enterobacter hormaechei. Urine culture showing Enterobacter cloacae complex. Changed to cefepime 03/20. Immunosuppressive agents were stopped. Fevers resolved initially but worsened yesterday evening and overnight. CT A/P showing right renal stent in place and with new smooth septal thickening and new GG opacities in lingula and LLL. Now having productive cough. Sputum cx ordered. Advance abx to add Azithro and Vanco. Check Ag levels. Broad differential since she is immunocompromised. (2) Pneumonia: Code(s): J18.9 - Pneumonia, unspecified organism Status: Acute Assessment and Plan: CT A/P as mentioned above. CXR showing diffuse lung disease with Esteban B lines felt to have pulmonary edema and PNA LLL. BNP 1090. COVID negative. BP okay and renal function normal. One dose of IV Lasix. Check Echo. Speech therapy evaluation. Check for influenza and RSV (3) Urinary tract infection: Code(s): N39.0 - Urinary tract infection, site not specified Status: Acute Assessment and Plan: UA noted. Urine culture growing Enterobacter cloacae complex. Blood cultures positive in one anaerobic bottle for Enterobacter hormaechei sensitive to Cefepime. Having recurrent fevers. No evidence of obstructive process or renal abscess. Antibiotics adjusted as above. Follow fever curve (4) Right renal stone: Code(s): N20.0 - Calculus of kidney Status: Acute Assessment and Plan: On admission, CT of the abdomen and pelvis showed obstructing 6 mm stone in the infundibulum draining the upper pole the right kidney with secondary mild hydronephrosis. Patient underwent cystoscopy with right ureteroscopy with placement of right ureteral stent and upper pole on 03/19. KUB does not accurately visualize the kidney stone. CT scan today showing 2 right renal stones at 4mm and 6mm. Appreciate Urology input. (5) Hydronephrosis of right kidney: Code(s): N13.30 - Unspecified hydronephrosis Status: Acute Assessment and Plan: As above (6) Hypokalemia: Code(s): E87.6 - Hypokalemia Status: Acute Assessment and Plan: Potassium low again today. Metabolic nongap acidosis resolved. Mag normal at 1.8. Replace Mag and Potassium (7) Immunosuppressed status: Code(s): D84.9 - Immunodeficiency, unspecified Status: Acute Assessment and Plan: For Rheumatoid arthritis and Crohn's Disease. Holding immunosuppressive agents until infection cleared. Continue Prednisone. Consider stress dose steroids but BP okay. Discussed with her Rheumatology team (8) Obstructive sleep apnea on CPAP: Code(s): G47.33 - Obstructive sleep apnea (adult) (pediatric) Status: Acute Assessment and Plan: Stable. Tolerating BiPAP. Continue the same (9) Type 2 diabetes mellitus with hyperglycemia: Code(s): E11.65 - Type 2 diabetes mellitus with hyperglycemia Status: Acute Assessment and Plan: A1c 7.0. The patient's blood glucose was reviewed on 03/21 Glucose better controlled. Continue AccuCheks covering with sliding scale. Hypoglycemia protocol available as needed. Diabetic diet. Continue lantus Plan Hyponatremia - TSH normal. Na better. [place] related to pain. Follow. Subjective Date/time seen: 03/21/23 11:11 Interval history: 42yo female with Crohns, RA, DM and KIMBERLY here for fever and found to have UTI with obsructing renal stone. Having recurrent fevers and diaphoresis. Complains of frequent urination. Also with cough now productive of green-brown and occasional hemoptysis. Gagging with cough. Ice packs required to bring
[2023-03-21 11:20] LABS: Glucose Point of Care 212 mg/dl (65-105)
[2023-03-21] MEDS: INSULIN ASPART (*BKC) 100 UNITS/ML SUB-Q ×2 (12:39→16:45)
[2023-03-21] MEDS: FUROSEMIDE INJ 40 MG/4 ML VIAL 20 MG IV PUSH (12:42)
[2023-03-21] MEDS: SALINE 0.65% NAS SOLN 44 ML BTL 1 SPRAY NASAL (12:43)
--- NOTE | 2023-03-21 13:39 | PCSTNOTE ---
Patient was seen for bedside swallowing evaluation. Cursory oral peripheral examination results within normal limits. Patient was self positioned upright in bed. present at bedside. She was admitted to ER on 03/17/23 with a temperature of 105 and subsequently diagnosed with sepsis. Patient states she had difficulty managing her own saliva and mucous secretions at that time, but that it has improved and she is not having that difficulty now. Results of bedside swallow study are within normal limits, no signs of aspiration or any other swallowing difficulty observed. Please note that silent aspiration cannot be ruled out at bedside and can be evaluated with a modified barium swallow study. Recommendations for this patient are regular diet texture with thin liquids, no further speech therapy. Thank you for the referral of this patient.
[2023-03-21 13:42] LABS: Influenza A QL RT-PCR Negative (Negative); Influenza B QL RT-PCR Negative (Negative); RSV RNA, RT-PCR Negative (Negative)
[2023-03-21 14:00] VITALS: BP 110/83; PULSE 97; RESP 18; TEMP 37.4; O2SAT 92
[2023-03-21 16:40] LABS: Glucose Point of Care 208 mg/dl (65-105)
[2023-03-21] MEDS: PROMETHAZINE HCL 25 MG TABLET PO (16:45)
[2023-03-21 20:20] LABS: Glucose Point of Care 188 mg/dl (65-105)
[2023-03-21] MEDS: CYCLOBENZAPRINE HCL 10 MG TABLET PO (20:37)
[2023-03-21] MEDS: FLUoxetine HCL 20 MG CAPSULE 40 MG PO (20:37)
[2023-03-21] MEDS: MELATONIN 3 MG TABLET PO (20:37)
[2023-03-21] MEDS: INSULIN GLARGINE (*BKC) 100 UNITS/ML 25 UNITS SUB-Q (20:38)
[2023-03-21 21:31] VITALS: BP 131/83; PULSE 105; RESP 20; TEMP 37.6; O2SAT 95
[2023-03-21 22:35] VITALS: PULSE 103; O2SAT 95
[2023-03-22 06:00] VITALS: BP 117/74; PULSE 94; RESP 20; TEMP 37.2; O2SAT 95
[2023-03-22] MEDS: CEFEPIME 2 GM/NS 50 ML 2 GM/50 ML BAG IVPB ×3 (06:07→22:23)
[2023-03-22] MEDS: LEVOTHYROXINE SODIUM 100 MCG TABLET PO (06:08)
[2023-03-22 06:34] LABS: Hematocrit 30.2 % (37.0-47.0); Mean Corpuscular HGB Conc 33.1 g/dl (32-36); Mean Corpuscular Hemoglobin 31.3 pg (26-34); Mean Corpuscular Volume 94.7 fl (80-100); Mean Platelet Volume 10.2 fl (7.4-10.4); Platelet Count Result 253 k/mm3 (150-375); Red Blood Count 3.19 M/mm3 (4.2-5.4); Red Cell Distribution Width 12.1 % (11.5-14.5); White Blood Count 11.3 K/mm3 (4.5-10.0)
[2023-03-22 06:48] LABS: Alanine Aminotransferase 22 U/L (6-35); Albumin Level 3.3 g/dL (3.5-5.1); Alkaline Phosphatase 115 U/L (38-126); Anion Gap 9 mmol/L (8-16); Aspartate Amino Transferase 25 U/L (14-36); Bilirubin,Total 0.5 mg/dL (0.2-1.3); Blood Urea Nitrogen 4 mg/dL (7-17); Calcium 8.1 mg/dL (8.4-10.2); Carbon Dioxide 27 mmol/L (22-30); Chloride 99 mmol/L (98-107); Estimated CRCL calculation 159 ml/min; Estimated Glomerular Filt Rate > 60; Glucose 236 mg/dL (65-110); Magnesium 1.9 mg/dL (1.6-2.3); Potassium 2.9 mmol/L (3.4-5.0); Sodium 135 mmol/L (137-145)
[2023-03-22 07:26] LABS: Eosinophils Absolute Manual 0.11 K/mm3 (0.02-0.5); Eosinophils Percent Manual 1 % (0-4); Lymphocytes Absolute Manual 1.13 K/mm3 (1.1-4.5); Lymphocytes Percent Manual 10 % (18-44); Monocytes Absolute Manual 1.01 K/mm3 (0.1-0.90); Monocytes Percent Manual 9 % (3-9); Neutrophils Percent Manual 77 % (46-73); Total Cells Counted 100
[2023-03-22 07:27] LABS: Basophils Absolute Manual 0.22 K/mm3 (0.0-0.1); Basophils Percent Manual 2 % (0-1); Metamyelocytes Percent 1 %; Platelet Estimate Adequate (Adequate)
[2023-03-22 07:28] LABS: Schistocytes None Seen (NORMAL)
[2023-03-22 08:25] LABS: Glucose Point of Care 223 mg/dl (65-105)
[2023-03-22] MEDS: ENOXAPARIN 40 MG/0.4 ML SYRINGE SUB-Q (09:48)
[2023-03-22] MEDS: MAGNESIUM SULF 2 GM/WATER 50ML 2 GM/50 ML BAG IVPB (09:48)
[2023-03-22] MEDS: AZITHROMYCIN 500 MG/NS 250 ML 500 MG/250 ML BAG 250 MG IVPB (09:49)
[2023-03-22] MEDS: POTASSIUM CHLORIDE 20 MEQ ER TABLET 40 MEQ PO ×2 (09:50→14:30)
[2023-03-22] MEDS: PREGABALIN (*CRX) 50 MG CAPSULE 100 MG PO ×2 (09:50→16:49)
[2023-03-22] MEDS: POTASSIUM CHLORIDE 20 MEQ ER TABLET PO ×2 (09:50→16:49)
[2023-03-22] MEDS: ACETAMINOPHEN 325 MG TABLET 650 MG PO ×3 (09:50→23:09)
[2023-03-22] MEDS: ALPRAZolam (*CRX) 0.5 MG TABLET PO ×2 (09:51→16:50)
[2023-03-22] MEDS: LORATADINE 10 MG TABLET PO (09:51)
[2023-03-22] MEDS: buPROPion HCL XL (24 HR) 150 MG TABCR 300 MG PO (09:51)
[2023-03-22] MEDS: guaiFENesin 12 HR 600 MG TABCR PO ×2 (09:51→20:31)
[2023-03-22] MEDS: PANTOPRAZOLE 40 MG TABLET PO (09:51)
[2023-03-22] MEDS: oxyBUTYnin CHLORIDE 5 MG TABLET PO ×3 (09:51→16:57)
[2023-03-22] MEDS: PROMETHAZINE HCL 25 MG TABLET PO (09:51)
[2023-03-22] MEDS: predniSONE 1 MG TABLET 3 MG PO (09:51)
[2023-03-22] MEDS: INSULIN ASPART (*BKC) 100 UNITS/ML SUB-Q ×4 (09:52→20:24)
--- NOTE | 2023-03-22 10:52 | WPDUROPN2 ---
Progress Note: A&P Assessment and Plan (1) Sepsis: Code(s): A41.9 - Sepsis, unspecified organism Status: Acute Assessment and Plan: Patient seems to be improving with addition of antibiotics for pneumonia. (2) Right ureteral stone: Code(s): N20.1 - Calculus of ureter Status: Acute Assessment and Plan: Stent in appropriate position, continue IV antibiotics. Subjective Subjective Date/Time Seen: 03/22/23 10:52 Post Op day: 3 Interval history: reports she is doing much better. She is expectorating as much as possible. Feeling better overall. Objective Data Vital Signs Vital Signs: Vital Signs - 24 hr 03/21/23 14:00 03/21/23 21:31 03/21/23 22:35 Temperature 99.4 F 99.6 F Pulse Rate 97 105 H Respiratory Rate 18 20 Blood Pressure 110/83 131/83 Pulse Oximetry 92 95 95 Oxygen Delivery CPAP Fraction of Inspired Oxygen 21 03/21/23 22:35 03/22/23 06:00 Temperature 98.9 F Pulse Rate 103 H 94 Respiratory Rate 20 Blood Pressure 117/74 Pulse Oximetry 95 95 Oxygen Delivery Autopap Fraction of Inspired Oxygen Intake/Output Intake/Output: Intake & Output 03/19/23 03/20/23 03/21/23 03/22/23 23:59 23:59 23:59 23:59 Intake Total 1180 1770 1200 2070 Output Total 1150 2400 Balance 1180 1770 50 -330 Meds/Results Medications: Active Medications Generic Name Dose Route Start Last Admin Trade Name Freq PRN Reason Stop Dose Admin Acetaminophen 650 mg 03/17/23 17:53 03/22/23 09:50 Acetaminophen 325 Mg Tablet PO 650 mg Q6H PRN Administration Mild Pain (1-3) or Fever Hydrocodone Bitart/Acetaminophen 1 tab 03/17/23 17:53 03/21/23 16:17 Hydrocodone/Acetaminophen (*Crx) 5-325 Mg Tablet PO 1 tab Q6H PRN Administration Pain Rated 4-6 Alprazolam 0.5 mg 03/17/23 21:25 03/22/23 09:51 Alprazolam (*Crx) 0.5 Mg Tablet PO 0.5 mg BID TOLU Administration Bupropion HCl 300 mg 03/18/23 09:00 03/22/23 09:51 Bupropion Hcl Xl (24 Hr) 150 Mg Tabcr PO 300 mg DAILY TOLU Administration Calcium Carbonate 500 mg 03/18/23 09:00 03/22/23 09:51 Calcium/Vitamin D 500 Mg Tablet PO 500 mg BID TOLU Administration Cyclobenzaprine HCl 10 mg 03/17/23 21:35 03/21/23 20:37 Cyclobenzaprine Hcl 10 Mg Tablet PO 10 mg HS TOLU Administration Dextrose 12.5 gm 03/17/23 17:53 Dextrose 50% 25 Gm/50 Ml Syringe IV PUSH PRN PRN Hypoglycemia Protocol Enoxaparin Sodium 40 mg 03/20/23 09:00 03/22/23 09:48 Enoxaparin 40 Mg/0.4 Ml Syringe SUB-Q 40 mg DAILY TOLU Administration Fentanyl Citrate 25 mcg 03/17/23 17:16 Fentanyl Citrate Inj (*Crx) 100 Mcg/2 Ml Vial IV PUSH Q2M PRN Pain Fluoxetine HCl 40 mg 03/17/23 21:20 03/21/23 20:37 Fluoxetine Hcl 20 Mg Capsule PO 40 mg HS TOLU Administration Glucagon 1 mg 03/17/23 17:53 Glucagon For Inj 1 Mg Vial IM PRN PRN Hypoglycemia Protocol Glucose 15 gm 03/17/23 17:53 Glucose Oral Gel 15 Gm Of Glucse In 37.5 Gm Tube PO PRN PRN Hypoglycemia Protocol Guaifenesin 600 mg 03/20/23 09:00 03/22/23 09:51 Guaifenesin 12 Hr 600 Mg Tabcr PO 600 mg Q12HR TOLU Administration Hydromorphone HCl 0.5 mg 03/17/23 16:53 03/21/23 21:18 Hydromorphone Hcl Inj (*Crx) 1 Mg/Ml Syr IV PUSH 0.5 mg Q4H PRN Administration Pain Rated 7-10 Dextrose 1,000 mls @ 100 mls/hr 03/17/23 17:53 Dextrose 5% 1,000 Ml IVPB PRN PRN Hypoglycemia Protocol Lactated Ringer's 1,000 mls @ 30 mls/hr 03/17/23 17:20 03/19/23 21:48 Lr - Lactated Ringers Iv IV CONT Not Given .Q24H TOLU Lactated Ringer's 1,000 mls @ 30 mls/hr 03/17/23 17:20 08/17/23 21:48 Lr - Lactated Ringers Iv IV CONT Not Given .Q24H TOLU Cefepime HCl 2 gm in 50 mls @ 100 mls/hr 03/20/23 14:00 03/22/23 06:37 Maxipime 2 Gm/Ns 50 Ml IVPB Infused Q8HR TOLU Infusion Azithromycin 500 mg in 2
[2023-03-22 11:32] LABS: Glucose Point of Care 217 mg/dl (65-105)
[2023-03-22] MEDS: HYDROcodone/acetaminophen (*CRX) 5-325 MG TABLET 1 TAB PO (12:28)
[2023-03-22] MEDS: SALINE 0.65% NAS SOLN 44 ML BTL 1 SPRAY NASAL (12:29)
[2023-03-22 12:38] LABS: Potassium 3.1 mmol/L (3.4-5.0)
--- NOTE | 2023-03-22 12:45 | PM.IMPN ---
Progress Note: A&P Assessment and Plan (1) Sepsis: Code(s): A41.9 - Sepsis, unspecified organism Status: Acute Assessment and Plan: Patient presents with symptoms of sepsis including tachycardia, fever and leukocytosis. [place] related to UTI. Zosyn started. Blood cultures returned positive for Enterobacter hormaechei. Urine culture showing Enterobacter cloacae complex. Changed to cefepime 03/20. Immunosuppressive agents were stopped. Fevers resolved initially but worsened 03/20- overnight. Repeat CT A/P showing right renal stent in place and with new smooth septal thickening and new GG opacities in lingula and LLL. Now having productive cough. Sputum cx ordered. Abx advanced to add Azithro and Vanco. Sputum pending. BCx remain NGTD. Fevers resolving. She is feeling better. Follow (2) Pneumonia: Code(s): J18.9 - Pneumonia, unspecified organism Status: Acute Assessment and Plan: CT A/P as mentioned above. CXR showing diffuse lung disease with Esteban B lines felt to have pulmonary edema and PNA LLL. BNP 1090. COVID/RSV/Influenza negative. BP okay and renal function normal. One dose of IV Lasix given 03/21. Echo pending. Speech therapy evaluation showed patient could swallow safely. Continue IV abx for today but change to oral if remains fever free by tomorrow. (3) Urinary tract infection: Code(s): N39.0 - Urinary tract infection, site not specified Status: Acute Assessment and Plan: UA noted. Urine culture growing Enterobacter cloacae complex. Blood cultures positive in one anaerobic bottle for Enterobacter hormaechei sensitive to Cefepime. No evidence of obstructive process or renal abscess. Antibiotics adjusted as above. Fevers waning. (4) Right renal stone: Code(s): N20.0 - Calculus of kidney Status: Acute Assessment and Plan: On admission, CT of the abdomen and pelvis showed obstructing 6 mm stone in the infundibulum draining the upper pole the right kidney with secondary mild hydronephrosis. Patient underwent cystoscopy with right ureteroscopy with placement of right ureteral stent and upper pole on 03/19. KUB does not accurately visualize the kidney stone. CT scan 03/21 showing 2 right renal stones at 4mm and 6mm. Appreciate Urology input. (5) Hydronephrosis of right kidney: Code(s): N13.30 - Unspecified hydronephrosis Status: Acute Assessment and Plan: As above (6) Hypokalemia: Code(s): E87.6 - Hypokalemia Status: Acute Assessment and Plan: Potassium low again today. Metabolic nongap acidosis resolved. Mag normal at 1.8. Replace Mag and Potassium and continue to replace (7) Immunosuppressed status: Code(s): D84.9 - Immunodeficiency, unspecified Status: Acute Assessment and Plan: For Rheumatoid arthritis and Crohn's Disease. Holding immunosuppressive agents until infection cleared. Continue Prednisone. Consider stress dose steroids but BP okay. Discussed with her Rheumatology team (8) Obstructive sleep apnea on CPAP: Code(s): G47.33 - Obstructive sleep apnea (adult) (pediatric) Status: Acute Assessment and Plan: Stable. Tolerating BiPAP. Continue the same (9) Type 2 diabetes mellitus with hyperglycemia: Code(s): E11.65 - Type 2 diabetes mellitus with hyperglycemia Status: Acute Assessment and Plan: A1c 7.0. The patient's blood glucose was reviewed on 03/22 Glucose better controlled. Continue AccuCheks covering with sliding scale. Hypoglycemia protocol available as needed. Diabetic diet. Advance lantus Plan Hyponatremia - TSH normal. Na better. [place] related to pain. Follow. ?Trush - not involving the buccal mucosa or soft palate but she is having symptoms. And was on immunosuppresive agents and DM makes this highly possible. Add nystatin and follow clinically. Subjective Date/time seen: 03/22/23 12:45 Interval history:
[2023-03-22 14:00] VITALS: BP 126/74; PULSE 86; RESP 16; TEMP 36.8; O2SAT 98
[2023-03-22] MEDS: NYSTATIN 100,000 UNITS/ML SUSP 5 ML ORAL.SUSP PO ×2 (16:49→20:26)
[2023-03-22 16:57] LABS: Glucose Point of Care 260 mg/dl (65-105)
[2023-03-22 20:00] VITALS: O2SAT 98
[2023-03-22] MEDS: HYDROmorphone HCL INJ (*CRX) 1 MG/ML SYR 0.5 MG IV PUSH (20:23)
[2023-03-22] MEDS: CYCLOBENZAPRINE HCL 10 MG TABLET PO (20:25)
[2023-03-22] MEDS: MELATONIN 3 MG TABLET PO (20:25)
[2023-03-22] MEDS: INSULIN GLARGINE (*BKC) 100 UNITS/ML 28 UNITS SUB-Q (20:25)
[2023-03-22] MEDS: FLUoxetine HCL 20 MG CAPSULE 40 MG PO (20:31)
[2023-03-22 20:51] LABS: Glucose Point of Care 235 mg/dl (65-105)
[2023-03-22 21:28] VITALS: BP 127/76; PULSE 103; RESP 20; TEMP 37.7; O2SAT 95
[2023-03-22 23:09] VITALS: TEMP 37.7
[2023-03-22 23:53] VITALS: TEMP 36.6
--- NOTE | 2023-03-23 | ECHO_ITS ---
Patient Info Name: Audrey Soria Age: 42 years : 1980 Gender: Female Ht: 65 in Wt: 275 lbs BSA: 2.46 m2 HR: 100 bpm BP: 127 / 76 mmHg Heart Rhythm: Sinus Rhythm Technical Quality: Poor Exam Date: 03/23/2023 11:07 AM Exam Location: [facility] Pulmonary Exam Room: 311 Patient Status: Inpatient Admit Date: 03/17/2023 Staff Ordering Physician: Dk Soto MD Assistant Plant Manager: Rhea Sears RDCS Attending Provider: Debbie Bush DO Exam Type: CA echo dop color flow w con Study Info Indications - pulm sandhya Complete two-dimensional, color flow and Doppler transthoracic echocardiogram is performed with contrast to opacify the left ventricle and to improve the deliniation of the left ventricle endocardial borders. Contrast/Agitated Saline Contrast/Ag. Saline: Definity Amount: 2.00 ml Administered By: Rhea Sears [facility] Existing IV Access: Yes IV Access Condition: patent with no signs of infiltration Reason for Poor Study: patient body habitus Summary 1. Somewhat difficult image quality because of obesity. 2. Essentially normal 2D/Doppler echocardiogram. Left Ventricle Left ventricular chamber dimension is normal. Left ventricular systolic function is normal, estimated at 60-65%. The left ventricular diastolic function is normal. Right Ventricle Right ventricular chamber dimension is normal. Left Atria Left atrial chamber dimension is normal. Right Atria Right atrial chamber dimension is normal. Aortic Valve The aortic valve is normal. Pulmonic Valve The pulmonic valve is not well visualized. Mitral Valve The mitral valve has normal leaflets. Tricuspid Valve The tricuspid valve leaflets are normal. Pericardium/Pleural The pericardium appears normal. Aorta The aortic root size at the sinus of Valsalva is normal. Left Ventricular Outflow Tract Name Value Normal LVOT 2D LVOT Diameter 2.06 cm LVOT Doppler LVOT Peak Gradient 5 mmHg LVOT Mean Gradient 3 mmHg LVOT VTI 21.72 cm LVOT VTI/AV VTI Ratio 0.88 LVOT Stroke Volume 72.32 ml LVOT CO 18.10 l/min LVOT CI 7.35 L/min/m2 Pulmonic Valve Name Value Normal RVOT Doppler RVOT Peak Gradient 3 mmHg PV Doppler PV Peak Gradient 5 mmHg Mitral Valve Name Value Normal MV Doppler MV Decel Latimer 665.89 cm/s2 MV PHT
[2023-03-23 00:05] VITALS: PULSE 100; O2SAT 96
[2023-03-23 00:09] VITALS: TEMP 36.6
[2023-03-23] MEDS: CEFEPIME 2 GM/NS 50 ML 2 GM/50 ML BAG IVPB ×3 (05:01→20:52)
[2023-03-23 06:00] VITALS: BP 139/98; PULSE 99; RESP 20; TEMP 36.6; O2SAT 95
[2023-03-23] MEDS: LEVOTHYROXINE SODIUM 100 MCG TABLET PO (06:25)
[2023-03-23 07:05] LABS: Basophils Absolute Auto 0.1 K/mm3 (0.0-0.1); Basophils Percent Auto 0.9 % (0.2-1.2); Eosinophils Absolute Auto 0.2 K/mm3 (0-0.3); Eosinophils Percent Auto 1.9 % (0-4.4); Hematocrit 30.5 % (37.0-47.0); Hemoglobin 9.9 g/dL (12.0-15.0); Immature Granulocyte Absolute 1.02 K/mm3 (0.00-0.031); Immature Granulocyte Percent A 9.6 % (0-0.5); Lymphocytes Absolute Auto 1.23 K/mm3 (0.9-3.2); Lymphocytes Percent Auto 11.5 % (18.3-44.2); Mean Corpuscular HGB Conc 32.5 g/dl (32-36); Mean Corpuscular Hemoglobin 31.6 pg (26-34); Mean Corpuscular Volume 97.4 fl (80-100); Mean Platelet Volume 9.9 fl (7.4-10.4); Monocytes Percent Auto 9.7 % (2.6-8.5); Neutrophils Absolute Auto 7.1 K/mm3 (1.3-6.7); Neutrophils Percent Auto 66.4 % (45.5-73.1); Nucleated Red Blood Cells Absolute Auto 0.1 K/mm3 (0.0-0.012); Nucleated Red Blood Cells Perc 0.5 % (0.0-0.2); Platelet Count Result 311 k/mm3 (150-375); Red Blood Count 3.13 M/mm3 (4.2-5.4); Red Cell Distribution Width 12.4 % (11.5-14.5); White Blood Count 10.7 K/mm3 (4.5-10.0)
[2023-03-23 07:14] LABS: Albumin Level 3.2 g/dL (3.5-5.1); Anion Gap 6 mmol/L (8-16); Blood Urea Nitrogen 3 mg/dL (7-17); Calcium 8.1 mg/dL (8.4-10.2); Carbon Dioxide 23 mmol/L (22-30); Chloride 101 mmol/L (98-107); Estimated CRCL calculation 159 ml/min; Estimated Glomerular Filt Rate > 60; Glucose 225 mg/dL (65-110); Magnesium 1.9 mg/dL (1.6-2.3); Sodium 130 mmol/L (137-145)
[2023-03-23 09:01] VITALS: O2SAT 96
[2023-03-23] MEDS: HYDROcodone/acetaminophen (*CRX) 5-325 MG TABLET 1 TAB PO ×2 (09:11→18:38)
[2023-03-23] MEDS: INSULIN ASPART (*BKC) 100 UNITS/ML SUB-Q ×4 (09:11→20:47)
[2023-03-23] MEDS: buPROPion HCL XL (24 HR) 150 MG TABCR 300 MG PO (09:12)
[2023-03-23] MEDS: PREGABALIN (*CRX) 50 MG CAPSULE 100 MG PO ×2 (09:12→20:41)
[2023-03-23] MEDS: predniSONE 1 MG TABLET 3 MG PO (09:12)
[2023-03-23] MEDS: ALPRAZolam (*CRX) 0.5 MG TABLET PO ×2 (09:12→20:40)
[2023-03-23] MEDS: oxyBUTYnin CHLORIDE 5 MG TABLET PO ×2 (09:13→17:27)
[2023-03-23] MEDS: guaiFENesin 12 HR 600 MG TABCR PO ×2 (09:13→20:41)
[2023-03-23] MEDS: ENOXAPARIN 40 MG/0.4 ML SYRINGE SUB-Q (09:14)
[2023-03-23] MEDS: NYSTATIN 100,000 UNITS/ML SUSP 5 ML ORAL.SUSP PO ×4 (09:14→20:42)
[2023-03-23] MEDS: MAGNESIUM SULF 2 GM/WATER 50ML 2 GM/50 ML BAG IVPB (09:15)
[2023-03-23] MEDS: AZITHROMYCIN 250 MG TABLET PO (09:20)
[2023-03-23] MEDS: LORATADINE 10 MG TABLET PO (09:20)
[2023-03-23] MEDS: POTASSIUM CHLORIDE 20 MEQ ER TABLET 40 MEQ PO ×2 (09:33→17:30)
[2023-03-23] MEDS: PANTOPRAZOLE 40 MG TABLET PO (09:33)
[2023-03-23] MEDS: PERFLUTREN LIPID MICROSPHERES 1.5 ML VIAL DILUTED TO 10 ML TOTAL VOLUME IV PUSH (11:30)
[2023-03-23 13:09] LABS: Potassium 3.6 mmol/L (3.4-5.0)
[2023-03-23 13:50] VITALS: BP 148/90; PULSE 85; RESP 18; TEMP 37.1; O2SAT 98
--- NOTE | 2023-03-23 14:51 | IVDEFINITY ---
Prior to administration of IV Definity the patient was educated on the risks and benefits of the imaging enhancing agent including potential adverse side effects. The patient verbalized understanding. Allergies were verified. No exclusion criteria were identified and at least one of the following inclusion criteria were met: 1) physician request, 2) patient technically difficult to image (per the [place] [employer]chocardi[employer] guidelines of two or more segments not discernable within the apical view), or 3) questionable left ventricular function. ?
--- NOTE | 2023-03-23 16:11 | PM.IMPN ---
Progress Note: A&P Assessment and Plan (1) Sepsis: Code(s): A41.9 - Sepsis, unspecified organism Status: Acute Assessment and Plan: Patient presents with symptoms of sepsis including tachycardia, fever and leukocytosis. [place] related to UTI. Zosyn started. Blood cultures returned positive for Enterobacter hormaechei. Urine culture showing Enterobacter cloacae complex. Changed to cefepime 03/20. Immunosuppressive agents were stopped. Fevers resolved initially but worsened 03/20- overnight. Repeat CT A/P showing right renal stent in place and with new smooth septal thickening and new GG opacities in lingula and LLL. Now having productive cough. Sputum cx pending. Abx advanced to add Azithro and Vanco. Fevers resolved. She is feeling better. Change to oral Azithro. MRSA nasal swab negative so will stop Vanco. Change to Levaquin tomorrow. Follow. Home tomorrow if remains fever free. (2) Pneumonia: Code(s): J18.9 - Pneumonia, unspecified organism Status: Acute Assessment and Plan: CT A/P as mentioned above. CXR showing diffuse lung disease with Esteban B lines felt to have pulmonary edema and PNA LLL. BNP 1090. COVID/RSV/Influenza negative. BP okay and renal function normal. One dose of IV Lasix given 03/21. Echo pending. Speech therapy evaluation showed patient could swallow safely. Echo pending. Repeat CXR. Continue IV abx for today but change to oral tomorrow. (3) Urinary tract infection: Code(s): N39.0 - Urinary tract infection, site not specified Status: Acute Assessment and Plan: UA noted. Urine culture growing Enterobacter cloacae complex. Blood cultures positive in one anaerobic bottle for Enterobacter hormaechei sensitive to Cefepime. No evidence of obstructive process or renal abscess. Antibiotics adjusted as above. Fevers resolved. (4) Right renal stone: Code(s): N20.0 - Calculus of kidney Status: Acute Assessment and Plan: On admission, CT of the abdomen and pelvis showed obstructing 6 mm stone in the infundibulum draining the upper pole the right kidney with secondary mild hydronephrosis. Patient underwent cystoscopy with right ureteroscopy with placement of right ureteral stent and upper pole on 03/19. KUB does not accurately visualize the kidney stone. CT scan 03/21 showing 2 right renal stones at 4mm and 6mm. Appreciate Urology input. (5) Hydronephrosis of right kidney: Code(s): N13.30 - Unspecified hydronephrosis Status: Acute Assessment and Plan: As above (6) Hypokalemia: Code(s): E87.6 - Hypokalemia Status: Acute Assessment and Plan: Potassium low again today. Metabolic nongap acidosis resolved. Mag normal at 1.9. Replace Mag and Potassium and continue to replace (7) Immunosuppressed status: Code(s): D84.9 - Immunodeficiency, unspecified Status: Acute Assessment and Plan: For Rheumatoid arthritis and Crohn's Disease. Holding immunosuppressive agents until infection cleared. Continue Prednisone. Consider stress dose steroids but BP okay. Discussed with her Rheumatology team (8) Obstructive sleep apnea on CPAP: Code(s): G47.33 - Obstructive sleep apnea (adult) (pediatric) Status: Acute Assessment and Plan: Stable. Tolerating BiPAP. Continue the same (9) Type 2 diabetes mellitus with hyperglycemia: Code(s): E11.65 - Type 2 diabetes mellitus with hyperglycemia Status: Acute Assessment and Plan: A1c 7.0. The patient's blood glucose was reviewed on 03/23 Glucose still elevated in the 200's Continue AccuCheks covering with sliding scale. Hypoglycemia protocol available as needed. Diabetic diet. Advance lantus again. Add metformin. Plan Hyponatremia - TSH normal. Na down again to 130. Check urine studies. Fluid restrict. Follow. ?Trush - not involving the buccal mucosa or soft palate but she is having symptoms. And was on immuno
[2023-03-23 17:13] LABS: Glucose Point of Care 239 mg/dl (65-105)
[2023-03-23] MEDS: metFORMIN HCL 500 MG TABLET PO (18:39)
[2023-03-23] MEDS: CYCLOBENZAPRINE HCL 10 MG TABLET PO (20:40)
[2023-03-23] MEDS: MELATONIN 3 MG TABLET PO (20:41)
[2023-03-23] MEDS: FLUoxetine HCL 20 MG CAPSULE 40 MG PO (20:41)
[2023-03-23] MEDS: INSULIN GLARGINE (*BKC) 100 UNITS/ML 28 UNITS SUB-Q (20:51)
[2023-03-23 22:00] VITALS: BP 142/90; PULSE 101; PULSE 88; RESP 16; TEMP 35.7; O2SAT 95; O2SAT 96
[2023-03-24 06:00] VITALS: BP 146/98; PULSE 103; RESP 16; TEMP 35.5; O2SAT 97
[2023-03-24 06:40] LABS: Anion Gap 9 mmol/L (8-16); Blood Urea Nitrogen 5 mg/dL (7-17); Calcium 8.3 mg/dL (8.4-10.2); Carbon Dioxide 25 mmol/L (22-30); Chloride 105 mmol/L (98-107); Estimated CRCL calculation 154 ml/min; Estimated Glomerular Filt Rate > 60; Glucose 183 mg/dL (65-110); Potassium 3.4 mmol/L (3.4-5.0); Sodium 139 mmol/L (137-145)
[2023-03-24] MEDS: LEVOTHYROXINE SODIUM 100 MCG TABLET PO (06:57)
[2023-03-24 07:59] LABS: Glucose Point of Care 179 mg/dl (65-105)
[2023-03-24 08:39] LABS: Creatinine Urine 80.1 mg/dL
[2023-03-24 08:52] LABS: Sodium Urine Random 73 meq/L
[2023-03-24] MEDS: LORATADINE 10 MG TABLET PO (08:58)
[2023-03-24] MEDS: HYDROcodone/acetaminophen (*CRX) 5-325 MG TABLET 1 TAB PO (08:58)
[2023-03-24] MEDS: PREGABALIN (*CRX) 50 MG CAPSULE 100 MG PO (08:58)
[2023-03-24] MEDS: ALPRAZolam (*CRX) 0.5 MG TABLET PO (08:58)
[2023-03-24] MEDS: NYSTATIN 100,000 UNITS/ML SUSP 5 ML ORAL.SUSP PO ×2 (08:59→12:13)
[2023-03-24] MEDS: buPROPion HCL XL (24 HR) 150 MG TABCR 300 MG PO (08:59)
[2023-03-24] MEDS: predniSONE 1 MG TABLET 3 MG PO (08:59)
[2023-03-24] MEDS: ENOXAPARIN 40 MG/0.4 ML SYRINGE SUB-Q (09:00)
[2023-03-24] MEDS: levoFLOXacin 750 MG TABLET PO (09:00)
[2023-03-24] MEDS: POTASSIUM CHLORIDE 20 MEQ ER TABLET 40 MEQ PO (09:00)
[2023-03-24] MEDS: AZITHROMYCIN 250 MG TABLET PO (09:01)
[2023-03-24] MEDS: metFORMIN HCL 500 MG TABLET PO (09:01)
[2023-03-24] MEDS: guaiFENesin 12 HR 600 MG TABCR PO (09:01)
[2023-03-24] MEDS: PANTOPRAZOLE 40 MG TABLET PO (09:01)
--- NOTE | 2023-03-24 11:23 | PCNWS ---
Weekly nutritional screen. Patient is tolerating current diabetic diet with adequate intake most meals, 1500ml fluid restriction noted. Pt does drink protein shakes at home when she does not eat well, not interested in them at this time as appetite is improving and consuming meals and also due to fluid restriction orders. No weight loss reported. No nutritional recommendations at this time.
[2023-03-24 11:32] LABS: Glucose Point of Care 183 mg/dl (65-105)
[2023-03-24 11:41] LABS: Glucose Point of Care 222 mg/dl (65-105)
[2023-03-24 12:05] LABS: Glucose Point of Care 222 mg/dl (65-105)
--- NOTE | 2023-03-24 12:12 | PM.DS ---
DS: Admitting Diagnosis Discharge Date 03/24/23 Admitting Diagnosis Fever DS: Discharge Diagnosis Discharge Diagnosis (1) Sepsis: Code(s): A41.9 - Sepsis, unspecified organism Status: Acute (2) Pneumonia: Code(s): J18.9 - Pneumonia, unspecified organism Status: Acute (3) Urinary tract infection: Code(s): N39.0 - Urinary tract infection, site not specified Status: Acute (4) Right renal stone: Code(s): N20.0 - Calculus of kidney Status: Acute (5) Hydronephrosis of right kidney: Code(s): N13.30 - Unspecified hydronephrosis Status: Acute (6) Hypokalemia: Code(s): E87.6 - Hypokalemia Status: Acute (7) Immunosuppressed status: Code(s): D84.9 - Immunodeficiency, unspecified Status: Acute (8) Obstructive sleep apnea on CPAP: Code(s): G47.33 - Obstructive sleep apnea (adult) (pediatric) Status: Acute (9) Type 2 diabetes mellitus with hyperglycemia: Code(s): E11.65 - Type 2 diabetes mellitus with hyperglycemia Status: Acute DS: Summary Hospital Course Reason for hospitalization: 42yo female with Crohn's, RA, DM and KIMBERLY here for fever and found to have UTI with obstructing renal stone. Please see H&P for details. Hospital Course: Patient presented with symptoms of sepsis including tachycardia, fever and leukocytosis.?CXR was clear. [place] related to UTI.? Zosyn was started. Blood cultures returned positive for Enterobacter hormaechei.? Urine culture showing Enterobacter cloacae complex.? Changed to cefepime 03/20. Immunosuppressive agents were stopped. Fevers resolved initially but worsened 03/20- overnight. Repeat CT A/P showing right renal stent in place and with new smooth septal thickening and new GG opacities in lingula and LLL. CXR showing diffuse lung disease with Esteban B lines felt to have pulmonary edema and PNA LLL. BNP 1090. COVID/RSV/Influenza negative. BP okay and renal function normal. One dose of IV Lasix given 03/21. She developed a productive cough. Sputum cx grew yeast but was currently on treatment for thrush. Echo showing EF 60-65%. Speech therapy evaluation showed patient could swallow safely. Abx advanced to add Azithro and Vanco for PNA. Fevers resolved. MRSA nasal swab negative so Vanco stopped. Repeat CXR now showing progression of the left sided airspace disease. Changed to Levaquin. On admission, CT of the abdomen and pelvis showed obstructing 6 mm stone in the infundibulum draining the upper pole the right kidney with secondary mild hydronephrosis. Patient underwent cystoscopy with right ureteroscopy with placement of right ureteral stent and upper pole on 03/19. KUB does not accurately visualize the kidney stone. CT Abd 03/21 showing 2 right renal stones at 4mm and 6mm. Potassium was persistently low requiring replacement. Patient is in an immunosuppressed status due to treatment for Rheumatoid arthritis and Crohn's Disease. We held immunosuppressive agents until infection cleared. We continued Prednisone. She did not require stress dose steroids. Fir her DM, her A1c 7.0. The patient's blood glucose was monitored closely with AccuCheks covering with sliding scale.? Hypoglycemia protocol was available as needed.? She was on a Diabetic diet. Glucose was poorly controlled so Lantus added. We also added metformin. Patient will need to check her glucose at home. She has a meter. Hopefully this will improve off the IV abx (that have dextrose). A1c is reasonable so plan discharge home on oral agents. She overall did well and was able to be discharged home on 03/24/23. Status at Discharge Cognitive/behavioral status at discharge: stable Time Spent with Patient Time attestation: Total time spent providing and/or coordinating discharge services: 38 minutes Time spent: Greater than 30 minutes Exam Narrative: AF 96.0 146/98 103 16 97% ra Gen - NARD Chest - CTA bilaterally, nml RR CV - RRR S1/S2
[2023-03-24 12:48] LABS: Glucose Point of Care 225 mg/dl (65-105)
[2023-03-24 14:00] VITALS: BP 139/94; PULSE 84; RESP 20; TEMP 35.9; O2SAT 100
[2023-03-24 14:24] LABS: Glucose Point of Care 214 mg/dl (65-105)
[2023-03-24 22:28] LABS: Pneumococcal Antigen Urine Not Detected (Not Detected)
[2023-03-25 03:16] LABS: Legionella pneumophila Ag Ur Not Detected (Not Detected)
--- NOTE | 2023-04-01 09:41 | PC.NURSE ---
Urine legionella AG and Pneumoccocal AG are both non-reactive.Dr. Brittany hancock.
--- NOTE | 2023-04-08 08:02 | PC.NURSE ---
Histoplasmosis is WNL at <0.2. Dr. Soto aware of findings.
== END 2023-03-24 14:10 | disposition home or self-care (01) | DRG 853 ==
LOC: ANHED 16:22 → ANHSURGERY 16:42 → ANH3MEDSUR 18:44
PROVIDERS: Nurse Practitioner Adult Health; Physician Assistant; Urology; Admitting Provider Student in an Organized Health Care Education/Training Program; Emergency Provider Physician Assistant; PCP Family Medicine; Visit Provider Internal Medicine
PROC: 0T768DZ Dilation of Right Ureter with Intraluminal Device, Via Natural or Artificial Opening Endoscopic (ICD-10-PCS; CPT 52352; principal; 2023-03-17 17:00)
DX: A41.89 Other specified sepsis (principal); J18.9 Pneumonia, unspecified organism; J81.0 Acute pulmonary edema; K50.90 Crohn's disease, unspecified, without complications; N13.6 Pyonephrosis; E87.1 Hypo-osmolality and hyponatremia; B37.0 Candidal stomatitis; K21.9 Gastro-esophageal reflux disease without esophagitis; E11.9 Type 2 diabetes mellitus without complications; E03.9 Hypothyroidism, unspecified; E87.6 Hypokalemia; M06.9 Rheumatoid arthritis, unspecified; M79.7 Fibromyalgia; Y95 Nosocomial condition; B96.89 Other specified bacterial agents as the cause of diseases classified elsewhere; G47.33 Obstructive sleep apnea (adult) (pediatric); Z20.822 Contact with and (suspected) exposure to COVID-19; Z98.84 Bariatric surgery status; Z87.891 Personal history of nicotine dependence; Z79.899 Other long term (current) drug therapy
CPT/HCPCS: 36415; 71045; 71046; 74018; 74176; 74177; 74420; 80048; 80053; 80069; 80076; 80202; 81001; 81025; 82570; 82607; 82728; 82746; 82948; 83036; 83540; 83550; 83605; 83690; 83735; 83880; 84100; 84132; 84300; 84443; 84540; 85025; 85027; 85610; 85730; 86140; 87040; 87070; 87077; 87081; 87086; 87088; 87186; 87205; 87385; 87449; 87502; 87634; 87635; 87899; 92610; 93005; 93306; 96365; 96375; 99285; A9270; C1769; C2617; C8929; J0330; J0456; J0692; J0696; J1100; J1170; J1650; J1815; J1940; J2250; J2405; J2543; J2704; J3010; J3370; J3475; J7030; Q9957; Q9966; Q9967

== ENCOUNTER 2023-03-27 15:49 | Outpatient (CLI) | payer BC, MEDICARE, SELFPAY | END 2023-03-27 15:50 | disposition home or self-care (01) | PROVIDERS: PCP Family Medicine; Visit Provider Urology | DX: N20.1 Calculus of ureter (principal); Z01.818 Encounter for other preprocedural examination | CPT/HCPCS: 87086 ==

== ENCOUNTER 2023-03-31 02:19 | Day surgery (SDC) | payer BC, MEDICARE, SELFPAY ==
--- NOTE | 2023-03-27 11:08 | PC.NURSE ---
PRE-OP INSTRUCTIONS, PLEASE READ CAREFULLY Report to the Outpatient Waiting Room, entrance under the green pavilion located off [facility], at time _0800_ on date _03/31/23_. Planned Procedure Time: _1000_. Time changes happen often and if your time is changed the preop area will call you the afternoon before. - You and your visitor will be asked to self-screen and do not enter if you have any COVID symptoms. - A mask is optional within the hospital at this time. Patients may have clear liquids (water, carbonated beverages, clear teas, apple juice) until 3 hours prior to surgery (0700 AM) with a maximum of 20 ounces. - No food from midnight until time of surgery Take the following medications with a SIP of water the morning of surgery: _ALPRAZOLAM, BUPROPION, LEVOFLOXACIN, LEVOTHYROXINE, PREDNISONE, PREGABALIN, & FLEXERIL, TRAMADOL IF NEEDED FOR PAIN _ DO NOT STOP ANY OF YOUR OTHER PRESCRIPTION MEDICATIONS PRIOR TO SURGERY ?EXCEPT THE FOLLOWING Medications to discontinue per physician _PROBIOTIC & SUPPLEMENTS 3 DAYS PRIOR TO SURGERY, Date to take last dose 03/27/23_ Please no make-up, nail swedish, hairspray, perfume, deodorant, or body powder the day of surgery. No jewelry (including any body piercings) or valuables the day of surgery, leave them at home. Please take a shower or bath the night before, or the morning of, surgery with an antibacterial soap. Wear comfortable, loose fitting clothing. - Jewelry must be removed prior to entering the operating room. Rings and piercings that are not removed may be cut off. - The hospital will not accept responsibility for valuables. - Please leave all valuables, including medications, at home the day of surgery. If you are going home after surgery, a licensed emergency detail driver must drive you home. - NO public transportation without another adult if you receive anesthesia. - We recommend that an adult stay with you for 24 hours following discharge. - We also recommend that you do not drive, make important decision, drink alcoholic beverages, or take any drugs that were not prescribed by your health care provider for at least 24 hours after your discharge time. Follow any additional instructions given to you from your surgeon. If you or anyone in your household have experienced Covid symptoms in the past week, please notify your surgeon or the nurse liaison at the phone number below for possible testing. Telephone instructions given to _PATIENT_and asked if any additional questions and then verbalized understanding. Patient advised to call surgeon office or pre surgery nurse liaison [phone] if any additional questions.
[2023-03-27 11:13] VITALS: BMI 41.6
--- NOTE | 2023-03-30 14:30 | WPDANESEPPF ---
Anes - Initial Pre Proc Eval Procedure: Operation Date: 03/31/23 10:00 Proposed Procedures p Cystoscopy, Right Ureteroscopy, Right Retrograde Pyelogram, Right Stone Extraction, Possible Right Stent Placement, Possible Holmium Laser - Ottoniel Torres MD Date/Time: 03/30/23 14:30 Surgeon: Ottoniel Torres MD Pre Op Diagnosis: right renal stones Patient Data Age: 42 Gender: F Height: 1.65 m Weight: 113.63 kg Allergies Allergy/AdvReac Type Severity Reaction Status Date / Time aspirin AdvReac Intermediate GI UPSET Verified 03/31/23 08:09 NSAIDS (Non-Steroidal AdvReac Intermediate Gastrointestinal Verified 03/31/23 08:09 Anti-Inflamma Upset Home Medications Medication Instructions Recorded Confirmed Type valacyclovir 1 gram tablet 2,000 mg PO Q12H PRN cold sores 12/05/22 03/27/23 Rx #30 tabs cetirizine 10 mg tablet 10 mg PO DAILY #30 tabs 02/24/23 03/27/23 Rx levothyroxine 100 mcg tablet 100 mcg PO DAILY #60 tabs 02/24/23 03/27/23 Rx lisinopril 40 mg tablet 40 mg PO DAILY #30 tabs 02/24/23 03/27/23 Rx omeprazole 20 mg capsule,delayed 20 mg PO DAILY #30 caps 02/24/23 03/27/23 Rx release pregabalin 100 mg capsule 100 mg PO BID #60 caps 02/24/23 03/27/23 Rx Flexeril 10 mg PO HS Muscle spasms 03/17/23 03/27/23 History alprazolam 0.5 mg tablet 0.5 mg PO BID anxiety 03/17/23 03/27/23 History bupropion HCl 150 mg 24 hr tablet, 300 mg PO DAILY 03/17/23 03/27/23 History extended release calcium carbonate 600 mg-vitamin 1 cap PO BID 03/17/23 03/27/23 History D3 10 mcg (400 unit) capsule fluoxetine 40 mg capsule 40 mg PO HS 03/17/23 03/27/23 History leflunomide 10 mg tablet 10 mg PO DAILY 03/17/23 03/27/23 History prednisone 1 mg tablet 3 mg PO DAILY 03/17/23 03/27/23 History upadacitinib 15 mg tablet,extended 30 mg PO DAILY 03/17/23 03/27/23 History release 24 hr (Rinvoq) Biotin Plus Keratin 1 tablet PO BID 03/19/23 03/27/23 History Daily Probiotic (10 Strains) 1 tablet PO DAILY 03/19/23 03/27/23 History Vitamin D3 1 tablet PO BID 03/19/23 03/27/23 History sucralfate 10 ml PO TID 03/19/23 03/27/23 History vitamin E 1 tablet PO BID 03/19/23 03/27/23 History 12 Hour Decongestant 120 mg PO Q12H PRN Congestion #10 03/24/23 03/27/23 Rx tabs levofloxacin 750 mg tablet 750 mg PO DAILY #9 tabs 03/24/23 03/27/23 Rx metformin 500 mg tablet 500 mg PO BIDWMEAL #60 tabs 03/24/23 03/27/23 Rx nystatin 100,000 unit/mL oral 5 ml PO QID #60 mL 03/24/23 03/27/23 Rx suspension tramadol 50 mg tablet 50 mg PO TID PRN pain 30 days #90 03/30/23 Rx tabs Patient hx anesthesia problems: none Family hx anesthesia problems: none Results Review: All pre-operative results and documents have been reviewed as part of the pre-operative evaluation. [facility] Past Medical History Medical History (Updated 03/21/23 @ 11:20 by Dk Soto MD) Allergic rhinitis Crohn's disease Diet-controlled type 2 diabetes mellitus Fibromyalgia Gastroesophageal reflux disease Herpes Hypothyroidism Immunosuppressed status Insomnia Obstructive sleep apnea on CPAP Post depression Rheumatoid arthritis Surgical History Surgical History (Updated 03/17/23 @ 17:12 by Lucero Holland PA-C) History of arthroscopic knee surgery History of cholecystectomy (01/2006) History of endometrial ablation (03/2011) [employer] History of gastric bypass (2021) History of hysterectomy (2015) History of tonsillectomy and adenoidectomy (1981) Status post LASIK surgery of both eyes Family History Family History Other Cerebrovascular accident Diabetes mellitus Family history of cardiovascular disease Family history of malignant neoplasm Hypertension Social History Social History (Updated 03/17/23 @ 17:14 by Lucero Holland PA-C) Social History: Surrogate medical decision maker: Mayo Soria, spouse. Code status: Full code. Smoking packs per day
[2023-03-31] VITALS (13 sets, daily range): BP systolic 94–133; BP diastolic 65–89; PULSE 76–101; RESP 12–24; TEMP 36.2–36.5; O2SAT 90–98
--- NOTE | ~2023-03-31 | XR_ITS ---
EXAMINATION: XR retrograde pyelo w/stent RT DATE: 03/31/2023 10:19 INDICATION: Right-sided ureteral stent exchange TECHNIQUE: 2 fluoroscopic images of the abdomen and pelvis were obtained during procedure performed micaela Torres. Radiologist was not present for the imaging or procedure. The amount of fluoroscopy t kentrell used during this procedure was 0.4 minutes. COMPARISON: CT date FINDINGS: Again seen is a right internal ureteral stent with loops formed in expected location of an upper pole calyx of the right kidney. Subsequent image demonstrates removal of the stent and the catheter advan michael in retrograde fashion into the proximal right ureter. Retrograde contrast injection into the rig t renal collecting system demonstrate no hydronephrosis. The catheter is advanced into a couple of th e lower pole calyces of the right kidney. On the final image a new internal ureteral stent has been p laced with proximal loop formed in an upper pole calyx of the right kidney. IMPRESSION: 1. Fluoroscopy utilized during right internal ureteral stent exchange. See procedure note for further detail. Reviewed, dictated and finalized at location A. IMPRESSION: 1. Fluoroscopy utilized during right internal ureteral stent exchange. See proc edure note for further detail.
--- NOTE | 2023-03-31 08:33 | WPDHPUPDATE1 ---
History and Physical Update Update Date/Time: 03/31/23 08:33 History and Physical has been reviewed, including an updated exam of the patient. There are NO changes in the patient's condition. Risks, benefits, and alternatives have been discussed and questions answered. Patient agrees to proceed with procedure. Proceed with cystoscopy, right retrograde pyelogram, right ureteroscopy with holmium laser, stent exchange
[2023-03-31] MEDS: LACTATED RINGERS 1,000 ML 30 ML IV CONT (08:42)
[2023-03-31] MEDS: SCOPOLAMINE 1.5 MG PATCH TRANSDERM (09:26)
[2023-03-31 09:28] LABS: Glucose Point of Care 169 mg/dl (65-105)
[2023-03-31] MEDS: ceFAZolin 2 GM/D5W 50 ML 2 GM/50 ML BAG IVPB (09:30)
[2023-03-31] MEDS: LIDOCAINE HCL 2% GEL UROJET 10 ML PKG MUCOUS MEM (10:15)
--- NOTE | 2023-03-31 10:17 | W.PM.PROC2 ---
Procedure Note - Detailed Date of Procedure 03/31/23 Pre-op Diagnosis right renal stones Post-op Diagnosis Same Procedure Performed Cystoscopy, right retrograde pyelogram, right ureteroscopy with laser, right stent exchange 4.8 Green[place]ic contour Surgeon Ottoniel Torres MD Anesthesia General Description of Procedure Patient was taken to the operative suite correctly identified. Once anesthesia was obtained she was placed in dorsal lithotomy position and prepped and draped usual sterile fashion. Twenty-two Green[place]ic scope inserted the bladder. The stent was grasped brought out the meatus. Sensor wire was inserted. Ureteral access sheath was placed. Mini flexible ureteroscope was inserted up into the kidney. The stone was located in the upper pole infundibular calyx. Using a 200 micron fiber we dusted the stone. Small pieces were too small to retrieve. The entire would kidney was inspected. I did not see any other residual stones at this time. Pyelogram was performed to confirm placement. 4.8 [place] contour stent was then placed with the proximal end in the upper pole system distal in the bladder. 2% viscous lidocaine was inserted urethra patient is taken recovery stable condition. The stent had a string attached and the patient remove that on or Thursday. She will follow-up in a month with a renal ultrasound. This completes dictation. Please send a copy to my office Estimated Blood Loss 0 Drains Yes Packing No Pathology None sent Complications No immediate complications Condition Stable Disposition PACU
[2023-03-31 10:41] LABS: Glucose Point of Care 168 mg/dl (65-105)
[2023-03-31] MEDS: fentaNYL CITRATE INJ (*CRX) 100 MCG/2 ML VIAL 25 MCG IV PUSH ×6 (10:46→10:58)
[2023-03-31] MEDS: HYDROmorphone HCL INJ (*CRX) 1 MG/ML SYR 0.5 MG IV PUSH ×3 (11:00→11:26)
[2023-03-31] MEDS: oxyBUTYnin CHLORIDE 5 MG TABLET PO (11:36)
[2023-03-31] MEDS: oxyCODONE HCL (*CRX) 5 MG TAB IR PO (11:51)
== END 2023-03-31 12:40 | disposition home or self-care (01) ==
PROVIDERS: PCP Family Medicine; Visit Provider Urology
PROC: (CPT 52352; principal; 2023-03-31 10:00)
DX: N20.0 Calculus of kidney (principal); K50.90 Crohn's disease, unspecified, without complications; I10 Essential (primary) hypertension; E11.9 Type 2 diabetes mellitus without complications; K21.9 Gastro-esophageal reflux disease without esophagitis; E03.9 Hypothyroidism, unspecified; G47.33 Obstructive sleep apnea (adult) (pediatric); M06.9 Rheumatoid arthritis, unspecified; M79.7 Fibromyalgia; B00.9 Herpesviral infection, unspecified; Z79.620 Long term (current) use of immunosuppressive biologic; Z79.84 Long term (current) use of oral hypoglycemic drugs; Z98.84 Bariatric surgery status; Z87.891 Personal history of nicotine dependence; F12.90 Cannabis use, unspecified, uncomplicated; E66.01 Morbid (severe) obesity due to excess calories; Z68.41 Body mass index [BMI] 40.0-44.9, adult
CPT/HCPCS: 52356; 74420; 82948; A9270; C1758; C1769; C2617; J0690; J1100; J1170; J1720; J2250; J2405; J2704; J3010; J7120; Q9966

== ENCOUNTER 2023-05-05 13:26 | Outpatient (CLI) | payer BC, MEDICARE, SELFPAY ==
--- NOTE | ~2023-05-05 | XR_ITS ---
XR abdomen/kub 1V DATE: 05/05/2023 14:05 INDICATION: Right renal stone TECHNIQUE: AP projection, 2 views COMPARISON: 03/31/2023 retrograde right pyelogram, stent placement 03/21/2023 CT abdomen pelvis FINDINGS: No urinary tract calcified calculus is evident. Status post cholecystectomy. Nonspecific bowel gas pattern without evidence of obstruction. No visceromegaly is noted. IMPRESSION: No internal urinary stent or urinary tract calculi are identified. Reviewed, dictated and finalized at Location A. Reviewed, dictated and finalized at location B.
== END 2023-05-05 13:27 | disposition home or self-care (01) ==
PROVIDERS: PCP Family Medicine; Visit Provider Urology
DX: N20.0 Calculus of kidney (principal)
CPT/HCPCS: 74018

== ENCOUNTER 2023-05-08 01:14 | Day surgery (SDC) | payer BC, MEDICARE, SELFPAY ==
[2023-04-29 10:20] VITALS: BMI 41.6
--- NOTE | 2023-04-29 10:26 | PC.NURSE ---
Report to the Outpatient Waiting Room, entrance under the green pavilion located off [facility], at time 1100 on date 05/08/23. Planned Procedure Time: 1300. Time changes happen often and if your time is changed the preop area will call you the afternoon before. - You and your visitor will be asked to self-screen and do not enter if you have any COVID symptoms. - A mask is optional within the hospital at this time. Patients may have clear liquids (water, carbonated beverages, clear teas, apple juice) until 3 hours prior to surgery with a maximum of 20 ounces. - No food from midnight until time of surgery Take the following medications with a SIP of water the morning of surgery: ANTIBIOTIC (IF STILL TAKING), ALPRAZOLAM, BUPROPION, LEVOTHYROXINE, PREDNISONE, PREGABALIN DO NOT STOP ANY OF YOUR OTHER PRESCRIPTION MEDICATIONS PRIOR TO SURGERY ?EXCEPT THE FOLLOWING Medications to discontinue per physician: VITAMINS/SUPPLEMENTS Date to take last dose: 05/04/23 Please no make-up, nail thai, hairspray, perfume, deodorant, or body powder the day of surgery. No jewelry (including any body piercings) or valuables the day of surgery, leave them at home. Please take a shower or bath the night before, or the morning of, surgery with an antibacterial soap. Wear comfortable, loose fitting clothing. - Jewelry must be removed prior to entering the operating room. Rings and piercings that are not removed may be cut off. - The hospital will not accept responsibility for valuables. - Please leave all valuables, including medications, at home the day of surgery. If you are going home after surgery, a licensed chain saw driver must drive you home. - NO public transportation without another adult if you receive anesthesia. - We recommend that an adult stay with you for 24 hours following discharge. - We also recommend that you do not drive, make important decision, drink alcoholic beverages, or take any drugs that were not prescribed by your health care provider for at least 24 hours after your discharge time. Follow any additional instructions given to you from your surgeon. If you or anyone in your household have experienced Covid symptoms in the past week, please notify your surgeon or the nurse liaison at the phone number below for possible testing. Telephone instructions given to PT - DARRYN CAROLINA and asked if any additional questions and then verbalized understanding. Patient advised to call surgeon office or pre surgery nurse liaison [phone] if any additional questions.
[2023-05-08 11:09] VITALS: BP 125/94; PULSE 92; RESP 20; TEMP 35.9; O2SAT 99
[2023-05-08] MEDS: LACTATED RINGERS 1,000 ML 30 ML IV CONT (12:00)
--- NOTE | 2023-05-08 12:32 | PM.IMHP ---
H&P: HPI History of Present Illness Date/Time: 05/08/23 12:32 Chief Complaint: Back mass Narrative: This is a 42-year-old woman who presents with a right upper back mass is causing her discomfort. She now presents for excision of the back mass. She reports no significant changes with the mass since last seen in the office. Review of Systems Review of Systems: All systems reviewed & are unremarkable except as noted in HPI and below Constitutional: Constitutional: Denies chills, Denies fever(s), Denies headache(s) and Denies weight loss Eyes: Eyes: Denies change in vision ENT: Denies dizziness, Denies headache(s), Denies neck mass and Denies throat swelling Cardiovascular: Cardiovascular: Denies chest pain, Denies lightheadedness and Denies dyspnea Respiratory: Respiratory: Denies cough, Denies dyspnea and Denies wheezing Gastrointestinal: Gastrointestinal: Denies abdominal pain, Denies change in bowel habits, Denies nausea and Denies vomiting Genitourinary: Genitourinary: Denies hematuria and Denies dysuria Musculoskeletal: Musculoskeletal: Reports as per HPI Integumentary/Breasts: Skin/Breast: Reports as per HPI Neurologic: Denies dizziness and Denies headache(s) Allergic/Immunologic: Allergic/Immunologic: Denies throat swelling and Denies wheezing [facility] Past Medical History Medical History Allergic rhinitis Crohn's disease Diet-controlled type 2 diabetes mellitus Fibromyalgia Gastroesophageal reflux disease Herpes Hypothyroidism Immunosuppressed status Insomnia Obstructive sleep apnea on CPAP Post depression Rheumatoid arthritis Surgical History Surgical History History of arthroscopic knee surgery History of cholecystectomy (01/2006) History of cystoscopy R ureteroscopy, R ureteral stent placement upper pole calyx 03/17/2023 R cystoscopy, R retrograde pyelogram R ureteroscopy with laser R stent exchange 4.8 [place] contour 03/31/2023 History of endometrial ablation (03/2011) [facility] History of gastric bypass (2021) History of hysterectomy (2015) History of tonsillectomy and adenoidectomy (1981) Status post LASIK surgery of both eyes Family History Family History Other Cerebrovascular accident Diabetes mellitus Family history of cardiovascular disease Family history of malignant neoplasm Hypertension Social History Social History Social History: Surrogate medical decision maker: Mayo Soria, spouse. Code status: Full code. Smoking packs per day: 1 Smoking cigarettes per day: 20.0 Years smoked: 13 Smoking pack-years: 13.00 Smoking status: Former smoker Tobacco type: cigarettes Second hand tobacco smoke exposure: No Smoking end date: 08/03/09 Alcohol intake: never Alcohol use details: Social alcohol use in moderation. Substance use: current Substance use type: marijuana Other substance usage details: GUMMIES Last use: 03/25/23 Lack of Transportation: No Lack of Food: Never True Current Housing: I Have Housing Concerned About Future Housing: No Difficulty Paying Gas/Electric Bills: No Difficulty Paying for Meds: No Currently Unemployed: No Education: High School Diploma/GED Difficulty w/ Childcare or Family Care: No Living arrangements: with family Additional living arrangements comments: Lives with spouse with 14-year-old son and daughter in [place]. Occupation/Education: other Additional occupation/education comments: Disabled Spiritual care concerns: No Meds Home Medications and Allergies Home Medications Medication Instructions Recorded Confirmed Type cetirizine 10 mg tablet 10 mg PO DAILY #30 tabs 02/24/23 05/08/23 Rx levothyroxine 100 mcg tablet 100 mcg PO DAILY #60 tabs 02/24/23
--- NOTE | 2023-05-08 12:33 | WPDHPUPDATE1 ---
History and Physical Update Update Date/Time: 05/08/23 12:33 History and Physical has been reviewed, including an updated exam of the patient. There are NO changes in the patient's condition. Risks, benefits, and alternatives have been discussed and questions answered. Patient agrees to proceed with procedure.
--- NOTE | 2023-05-08 12:46 | WPDANESEPPF ---
Anes - Initial Pre Proc Eval Procedure: Operation Date: 05/08/23 13:00 Proposed Procedures p Excision of Right Upper Back Mass - Sarthak Shay DO Date/Time: 05/08/23 12:46 Surgeon: Sarthak Shay DO Pre Op Diagnosis: Right Upper Back Mass 5cm Patient Data Age: 42 Gender: F Height: 1.65 m Weight: 112 kg Last Vital Signs Temp 96.6 F L 05/08/23 11:09 Pulse 92 05/08/23 11:09 Resp 20 05/08/23 11:09 BP 125/94 H 05/08/23 11:09 Pulse Ox 99 05/08/23 11:09 O2 Del Method Room Air 05/08/23 11:09 Allergies Allergy/AdvReac Type Severity Reaction Status Date / Time aspirin AdvReac Intermediate R/T Verified 05/08/23 11:34 bariatric surgery history NSAIDS (Non-Steroidal AdvReac Unknown Gastrointestinal Verified 05/08/23 11:34 Anti-Inflamma Upset Home Medications Medication Instructions Recorded Confirmed Type cetirizine 10 mg tablet 10 mg PO DAILY #30 tabs 02/24/23 05/08/23 Rx levothyroxine 100 mcg tablet 100 mcg PO DAILY #60 tabs 02/24/23 05/08/23 Rx lisinopril 40 mg tablet 40 mg PO DAILY #30 tabs 02/24/23 05/08/23 Rx omeprazole 20 mg capsule,delayed 20 mg PO DAILY #30 caps 02/24/23 05/08/23 Rx release pregabalin 100 mg capsule 100 mg PO BID #60 caps 02/24/23 05/08/23 Rx Flexeril 10 mg PO HS Muscle spasms 03/17/23 05/08/23 History alprazolam 0.5 mg tablet 0.5 mg PO BID anxiety 03/17/23 05/08/23 History bupropion HCl 150 mg 24 hr tablet, 300 mg PO DAILY 03/17/23 05/08/23 History extended release calcium carbonate 600 mg-vitamin 1 cap PO BID 03/17/23 05/08/23 History D3 10 mcg (400 unit) capsule fluoxetine 40 mg capsule 40 mg PO HS 03/17/23 05/08/23 History leflunomide 10 mg tablet 10 mg PO DAILY 03/17/23 05/08/23 History Biotin Plus Keratin 1 tablet PO BID 03/19/23 05/08/23 History Daily Probiotic (10 Strains) 1 tablet PO DAILY 03/19/23 05/08/23 History Vitamin D3 1 tablet PO BID 03/19/23 05/08/23 History vitamin E 1 tablet PO BID 03/19/23 05/08/23 History prednisone 5 mg tablet 10 mg PO DAILY #60 tabs 04/16/23 05/08/23 Rx 12 Hour Decongestant 120 mg PO Q12H Congestion 30 days 05/05/23 05/08/23 Rx #60 tabs tramadol 50 mg tablet 50 mg PO TID pain 30 days #90 tabs 05/05/23 05/08/23 Rx Patient hx anesthesia problems: none Family hx anesthesia problems: none Results Review: All pre-operative results and documents have been reviewed as part of the pre-operative evaluation. [facility] Past Medical History Medical History Allergic rhinitis Crohn's disease Diet-controlled type 2 diabetes mellitus Fibromyalgia Gastroesophageal reflux disease Herpes Hypothyroidism Immunosuppressed status Insomnia Obstructive sleep apnea on CPAP Post depression Rheumatoid arthritis Surgical History Surgical History History of arthroscopic knee surgery History of cholecystectomy (01/2006) History of cystoscopy R ureteroscopy, R ureteral stent placement upper pole calyx 03/17/2023 R cystoscopy, R retrograde pyelogram R ureteroscopy with laser R stent exchange 4.8 [place] contour 03/31/2023 History of endometrial ablation (03/2011) [facility] History of gastric bypass (2021) History of hysterectomy (2015) History of tonsillectomy and adenoidectomy (1981) Status post LASIK surgery of both eyes Family History Family History Other Cerebrovascular accident Diabetes mellitus Family history of cardiovascular disease Family history of malignant neoplasm Hypertension Social History Social History Social History: Surrogate medical decision maker: Mayo Soria, spouse. Code status: Full code. Smoking packs per day: 1 Smoking cigarettes per day: 20.0 Years smoked: 13 Smoking pack-years: 13.00 Smoking status: Former smoker Tobacco typ
[2023-05-08] MEDS: ceFAZolin 2 GM/D5W 50 ML 2 GM/50 ML BAG IVPB (12:53)
[2023-05-08] MEDS: LIDO 1%/EPINEPHRINE 1:100,000 50 ML VIAL 20 ML INFILTRATE (13:12)
--- NOTE | 2023-05-08 13:27 | P.OP_ITS ---
Procedure Note - Detailed Date of Procedure 05/08/23 Pre-op Diagnosis Right Upper Back Mass 5cm Post-op Diagnosis Same Procedure Performed Excision of 5 cm right upper back mass Surgeon Sarthak Shay, DO Anesthesia MAC and Local (1% lidocaine with epinephrine) Indications This is a 42-year-old woman who presented with a painful back mass in her right upper back. The mass was mobile and had consistency of a lipoma. Discussions were made with the patient about treatment options and decision was made to p roceed excision of 5 cm right upper back mass. Findings Excision of 5 cm right upper back mass was performed. The mass was deep within subcutaneous tissue but appeared to be anterior to the fascia. The mass was completely excised intact and sent to the lab for pathology. No other abnormalities were identified. Description of Procedure Procedure as well as risks, benefits, and alternatives were discussed with the patient. Written consent was obtained and placed in chart prior to procedure. Patient was brought back to surgical suite. She was placed in left lateral decubitus position on the operating table. Time-out was done to confirm patient and procedure. IV sedation was then administered by the anesthesia department. Right upper back area was prepped and draped in sterile fashion using chlorhexidine prep. 1% lidocaine with epinephrine was infiltrated locally around the mass. A 5 cm transverse incision was then made using a 15 blade scalpel. Electrocautery was used for hemostasis and for dissection through the subcutaneous tissue. The mass was encountered and carefully dissected free from the subcutaneous attachments using electrocautery. The mass was completely excised and sent to lab for pathology. The wound bed was then inspected and no other masses appeared to be present. Hemostasis appeared adequate. The skin was then reapproximated using 3-0 nylon simple interrupted sutures. Bacitracin ointment was then applied followed by 4 x 4 and tape. The patient was then awakened from anesthesia, and transferred to recovery. Estimated Blood Loss 2 Pathology Yes (Back mass) Complications No immediate complications Condition Stable Disposition Same day [facility] Billing Surgery - Charge Forward: Surgery Billing
[2023-05-08 13:41] VITALS: BP 114/70; PULSE 101; RESP 12; O2SAT 92
[2023-05-08] MEDS: ONDANSETRON INJ 4 MG/2 ML VIAL IV PUSH (13:53)
[2023-05-08 14:00] VITALS: BP 110/63; PULSE 91; RESP 16; O2SAT 95
[2023-05-08 14:15] VITALS: BP 113/74; PULSE 81; RESP 17; O2SAT 95
[2023-05-08 14:30] VITALS: BP 117/75; PULSE 83; RESP 16; O2SAT 93
[2023-05-08] MEDS: oxyCODONE HCL (*CRX) 5 MG TAB IR PO (14:40)
[2023-05-08 14:51] VITALS: BP 120/70; PULSE 90; RESP 16; O2SAT 93
== END 2023-05-08 15:04 | disposition home or self-care (01) ==
PROVIDERS: PCP Family Medicine; Visit Provider Surgery
PROC: (CPT 21931; principal; 2023-05-08 13:00)
DX: D17.1 Benign lipomatous neoplasm of skin and subcutaneous tissue of trunk (principal); E11.9 Type 2 diabetes mellitus without complications; E03.9 Hypothyroidism, unspecified; M06.9 Rheumatoid arthritis, unspecified; G47.33 Obstructive sleep apnea (adult) (pediatric); K50.90 Crohn's disease, unspecified, without complications; M79.7 Fibromyalgia; Z98.84 Bariatric surgery status; Z87.891 Personal history of nicotine dependence; F12.90 Cannabis use, unspecified, uncomplicated; E66.01 Morbid (severe) obesity due to excess calories; Z68.41 Body mass index [BMI] 40.0-44.9, adult
CPT/HCPCS: 21931; 88304; A9270; J0690; J1100; J2250; J2405; J2704; J3010; J7120

== ENCOUNTER 2023-07-06 17:11 | Emergency (ER) | payer BC, MEDICARE, SELFPAY ==
[2023-07-06] VITALS (7 sets, daily range): BP systolic 136–147; BP diastolic 93–103; PULSE 1–110; RESP 18–26; TEMP 37.1; O2SAT 98–100
--- NOTE | ~2023-07-06 | XR_ITS ---
EXAMINATION: XR chest 2V DATE: 07/06/2023 17:34 INDICATION: Chest pain. Shortness of breath. TECHNIQUE: Frontal and lateral views of the chest were obtained. COMPARISON: Chest single view 03/23/2023 FINDINGS: There is no pneumonia, pleural effusion, or pneumothorax. The heart size is normal. There a re surgical clips in the abdomen. IMPRESSION: 1. No acute cardiopulmonary disease. Reviewed, dictated and finalized at location E. TER APPLICATOR
--- NOTE | 2023-07-06 17:13 | ECG_ITS ---
Measurements Intervals [place] Rate: 105 P: 38 MN: 148 QRS: 16 QRSD: 84 T: 55 QT: 350 QTc: 464 Interpretive Statements SINUS TACHYCARDIA ABNORMAL RHYTHM ECG COMPARED TO ECG 03/17/2023 15:26:01 NO SIGNIFICANT CHANGE Electronically Signed On 07-07-2023 13:23:01 LEAD PASTOR by Katlyn Chen M.D.
[2023-07-06 19:47] LABS: Glucose Point of Care 155 mg/dl (65-105)
[2023-07-06 21:15] LABS: Basophils Absolute Auto 0.1 K/mm3 (0.0-0.1); Basophils Percent Auto 0.6 % (0.2-1.2); Eosinophils Percent Auto 0.5 % (0-4.4); Hematocrit 44.8 % (37.0-47.0); Hemoglobin 15.2 g/dL (12.0-15.0); Immature Granulocyte Absolute 0.03 K/mm3 (0.00-0.031); Immature Granulocyte Percent A 0.4 % (0-0.5); Lymphocytes Absolute Auto 3.52 K/mm3 (0.9-3.2); Lymphocytes Percent Auto 42.4 % (18.3-44.2); Mean Corpuscular HGB Conc 33.9 g/dl (32-36); Mean Corpuscular Hemoglobin 30.4 pg (26-34); Mean Corpuscular Volume 89.6 fl (80-100); Mean Platelet Volume 8.4 fl (7.4-10.4); Monocytes Absolute Auto 0.6 K/mm3 (0.1-0.6); Monocytes Percent Auto 7.6 % (2.6-8.5); Neutrophils Percent Auto 48.5 % (45.5-73.1); Platelet Count Result 351 k/mm3 (150-375); Red Cell Distribution Width 13.9 % (11.5-14.5); White Blood Count 8.3 K/mm3 (4.5-10.0)
[2023-07-06 21:27] LABS: Alanine Aminotransferase 64 U/L (6-35); Albumin Level 4.8 g/dL (3.5-5.1); Alkaline Phosphatase 117 U/L (38-126); Anion Gap 13 mmol/L (8-16); Aspartate Amino Transferase 57 U/L (14-36); Bilirubin,Total 0.6 mg/dL (0.2-1.3); Blood Urea Nitrogen 18 mg/dL (7-17); Calcium 9.9 mg/dL (8.4-10.2); Carbon Dioxide 24 mmol/L (22-30); Chloride 97 mmol/L (98-107); Estimated CRCL calculation 98 ml/min; Estimated Glomerular Filt Rate > 60; Glucose 172 mg/dL (65-110); Lipase 271 U/L (23-300); Potassium 3.2 mmol/L (3.4-5.0); Prothrombin Time 13.2 Seconds (11.1-14.7); Sodium 134 mmol/L (137-145)
[2023-07-06 21:38] LABS: Troponin I < 0.012 ng/mL (0.000-0.034)
--- NOTE | 2023-07-06 23:07 | ED.CHESTPAIN ---
HPI - Chest Pain General Chief Complaint: Chest Pain Stated Complaint: chest pain Time Seen by Provider: 07/06/23 23:05 Source: patient Mode of arrival: ambulatory Limitations: no limitations History of Present Illness HPI narrative: This is a 42 year old female that presents to the ER for lightheadedness. Ongoing over the last several days. Reports recently being started on hydrochlorothiazide because her blood pressure has been running high. Reports left sided chest discomfort and palpitations. Reports some shortness of breath. Denies lower extremity edema. Related Data Home Medications Medication Instructions Recorded Confirmed alprazolam 0.5 mg tablet 0.5 mg PO BID anxiety 03/17/23 05/25/23 bupropion HCl 150 mg 24 hr tablet, 300 mg PO DAILY 03/17/23 05/25/23 extended release calcium carbonate 600 mg-vitamin 1 cap PO BID 03/17/23 05/25/23 D3 10 mcg (400 unit) capsule Biotin Plus Keratin 1 tablet PO BID 03/19/23 05/25/23 Daily Probiotic (10 Strains) 1 tablet PO DAILY 03/19/23 05/25/23 Vitamin D3 1 tablet PO BID 03/19/23 05/25/23 leflunomide 20 mg tablet 20 mg PO DAILY 05/22/23 05/25/23 Allergies Allergy/AdvReac Type Severity Reaction Status Date / Time aspirin AdvReac Intermediate R/T Verified 07/06/23 17:11 bariatric surgery history NSAIDS (Non-Steroidal AdvReac Unknown Gastrointestinal Verified 07/06/23 17:11 Anti-Inflamma Upset Review of Systems Review of Systems: CONSTITUTIONAL: Denies fever CARDIOVASCULAR: Reports chest pain, palpitations. Denies edema. RESPIRATORY: Reports dyspnea. All systems reviewed & are unremarkable except as noted in HPI and below PMFSH Past Medical History Medical History Allergic rhinitis Crohn's disease Diet-controlled type 2 diabetes mellitus Fibromyalgia Gastroesophageal reflux disease Herpes Hypothyroidism Immunosuppressed status Insomnia Obstructive sleep apnea on CPAP Post depression Rheumatoid arthritis Surgical History Surgical History History of arthroscopic knee surgery History of cholecystectomy (01/2006) History of cystoscopy R ureteroscopy, R ureteral stent placement upper pole calyx 03/17/2023 R cystoscopy, R retrograde pyelogram R ureteroscopy with laser R stent exchange 4.8 [place] contour 03/31/2023 History of endometrial ablation (03/2011) [facility] History of gastric bypass (2021) History of hysterectomy (2015) History of tonsillectomy and adenoidectomy (1981) Status post LASIK surgery of both eyes Family History Family History Other Cerebrovascular accident Diabetes mellitus Family history of cardiovascular disease Family history of malignant neoplasm Hypertension Social History Social History Social History: Surrogate medical decision maker: Mayo Soria, spouse. Code status: Full code. Smoking packs per day: 1 Smoking cigarettes per day: 20.0 Years smoked: 13 Smoking pack-years: 13.00 Smoking status: Former smoker Tobacco type: cigarettes Second hand tobacco smoke exposure: No Smoking end date: 08/03/09 Alcohol intake: never Alcohol use details: Social alcohol use in moderation. Substance use: current Substance use type: marijuana Other substance usage details: GUMMIES Last use: 03/25/23 Lack of Transportation: No Lack of Food: Never True Current Housing: I Have Housing Concerned About Future Housing: No Difficulty Paying Gas/Electric Bills: No Difficulty Paying for Meds: No Currently Unemployed: No Education: High School Diploma/GED Difficulty w/ Childcare or Family Care: No Living arrangements: with family Additional living arrangements comments: Lives with spouse with 14-year-old son and daughter in [place]. Occupation/Education:
[2023-07-06] MEDS: POTASSIUM CHLORIDE 20 MEQ ER TABLET 40 MEQ PO (23:18)
[2023-07-06 23:20] LABS: Magnesium 1.8 mg/dL (1.6-2.3)
[2023-07-06] MEDS: SODIUM CHLORIDE 0.9% IV 1,000 ML 999 ML IV CONT (23:22)
[2023-07-07] VITALS (7 sets, daily range): BP systolic 145–162; BP diastolic 96; PULSE 89–100; RESP 15–25; O2SAT 98–100
[2023-07-07 00:15] LABS: D Dimer < 0.27 ug/mL (<0.48)
[2023-07-07 00:49] LABS: Influenza A QL RT-PCR Negative (Negative); Influenza B QL RT-PCR Negative (Negative); RSV RNA, RT-PCR Negative (Negative); SARS-CoV-2 RNA PCR Negative (Negative)
[2023-07-07 00:51] LABS: Troponin I < 0.012 ng/mL (0.000-0.034)
[2023-07-07] MEDS: ONDANSETRON INJ 4 MG/2 ML VIAL IV PUSH (00:51)
== END 2023-07-07 01:50 | disposition home or self-care (01) ==
PROVIDERS: Emergency Medicine; Emergency Provider Physician Assistant; PCP Family Medicine
DX: E86.0 Dehydration (principal); E87.6 Hypokalemia; R42 Dizziness and giddiness; Z20.822 Contact with and (suspected) exposure to COVID-19; E11.9 Type 2 diabetes mellitus without complications; E03.9 Hypothyroidism, unspecified; K50.90 Crohn's disease, unspecified, without complications; K21.9 Gastro-esophageal reflux disease without esophagitis; M79.7 Fibromyalgia; M06.9 Rheumatoid arthritis, unspecified; G47.33 Obstructive sleep apnea (adult) (pediatric); G47.00 Insomnia, unspecified; Z87.891 Personal history of nicotine dependence; Z90.49 Acquired absence of other specified parts of digestive tract; Z98.84 Bariatric surgery status; Z90.710 Acquired absence of both cervix and uterus; R00.0 Tachycardia, unspecified
CPT/HCPCS: 36415; 71046; 80053; 82948; 83690; 83735; 84484; 85025; 85380; 85610; 85730; 87637; 93005; 96361; 96374; 99284; A9270; J2405; J7030

== ENCOUNTER 2024-01-25 12:40 | Emergency (ER) | payer BC, MEDICARE, SELFPAY ==
--- NOTE | ~2024-01-25 | CT_ITS ---
EXAMINATION: CT abdomen pelvis wo con DATE: 01/25/2024 15:22 INDICATION: Right flank pain. Dysuria. TECHNIQUE: Computed tomography (CT) of the abdomen and pelvis was performed without intravenous contr ast. Automated exposure control and iterative reconstruction technique were employed. The dose-length product was 1470.25 mGy-cm. COMPARISON: CT abdomen and pelvis 03/21/2023 FINDINGS: The visualized portions of the lung bases are clear without pneumonia or pleural effusion. The heart size is normal. No pericardial effusion. There is a small sliding hiatal hernia. There are surgical changes of gastric bypass procedure. The liver is normal. There are changes of cholecystecto my. The spleen, pancreas, adrenal glands, and right kidney are normal. There is a 4 mm stone in left kidney. There are no dilated loops of bowel. The appendix is normal. There are no pathologically enla rged lymph nodes. There is no free intraperitoneal fluid. There is mild thoracic and lumbar spondylos is. IMPRESSION: 1. Nonobstructing left kidney stone. Reviewed, dictated and finalized at location A.
[2024-01-25 12:48] VITALS: BP 139/90; PULSE 102; RESP 15; TEMP 36.7; O2SAT 97
--- NOTE | 2024-01-25 15:08 | ED.ABDPAIN ---
HPI - Abdominal Pain General Chief Complaint: Abdominal Pain <SALINA Conway Last Filed: 01/25/24 15:15> Stated Complaint: right flank pain <SALINA Conway Last Filed: 01/25/24 15:15> Time Seen by Provider: 01/25/24 15:08 <SALINA Conway Last Filed: 01/25/24 15:15> Focused HPI: Patient is a 43 y/o female, with PMH of gastric bypass surgery, Crohn's disease, RA, cholecystectomy, who presents to the ED with c/o R flank pain. Patient reports pain began on Thursday. Has been fairly constant since the onset. She has hx of kidney stones requiring stent placement in the past. Sees Dr. Torres. Denies any recent heavy lifting/strenuous activity. Pain does slightly radiate around to her front lower abdomen. She also reports difficulty completely emptying her bladder, pressure with urination, fever up to 101F on Thursday, N/V. Denies dysuria. GENERAL: Well-appearing, morbidly obese with BMI of 43.3, and in no acute distress. HEAD: Normocephalic, atraumatic. CHEST: Clear to auscultation. ?No respiratory distress. HEART: Regular rate and rhythm.? MSK: +CVA tenderness on R. TTP throughout R lumbosacral region. ABD: No significant tenderness throughout abdomen. Normoactive BS. NEURO: ?Alert and oriented x3. Patient screened in triage and initial orders placed.? ?Additional care and disposition to be based upon?diagnostic testing and treatment. <SALINA Conway Last Filed: 01/25/24 15:15> Source: patient <SALINA Conway Last Filed: 01/25/24 15:15> Mode of arrival: ambulatory <SALINA Conway Last Filed: 01/25/24 15:15> Limitations: no limitations <SALINA Conway Last Filed: 01/25/24 15:15> History of Present Illness HPI narrative: This is a 43 year old female who presents for evaluation of right flank pain. She reports her pain is intermittent and sharp. She reports nausea and she reports she had a fever on Thursday. She has been taking tramadol for pain without improvement. She reports pain seems worse with certain movements. She wants to make sure she does not have a kidney stone because she has history of sepsis due to a stone. She also reports lower abdominal pressure with increased urinary frequency. She rates pain 4/10. <Miranda Bernal MD - Last Filed: 01/25/24 22:07> Related Data Home Medications: Home Medications Medication Instructions Recorded Confirmed bupropion HCl 150 mg 24 hr tablet, 300 mg PO DAILY 03/17/23 05/25/23 extended release calcium carbonate 600 mg-vitamin 1 cap PO BID 03/17/23 05/25/23 D3 10 mcg (400 unit) capsule Biotin Plus Keratin 1 tablet PO BID 03/19/23 05/25/23 Daily Probiotic (10 Strains) 1 tablet PO DAILY 03/19/23 05/25/23 Vitamin D3 1 tablet PO BID 03/19/23 05/25/23 leflunomide 20 mg tablet 20 mg PO DAILY 05/22/23 05/25/23 <Arielle Savage PA-C - Last Filed: 01/25/24 15:15> Allergies/Adverse Reactions: Allergies Allergy/AdvReac Type Severity Reaction Status Date / Time Iodinated Contrast Media Allergy Hives Verified 01/25/24 12:46 iodine Allergy Hives Verified 01/25/24 12:46 aspirin AdvReac Intermediate R/T Verified 01/25/24 12:46 bariatric surgery history NSAIDS (Non-Steroidal AdvReac Unknown Gastrointestinal Verified 01/25/24 12:46 Anti-Inflamma Upset <Arielle Savage PA-C - Last Filed: 01/25/24 15:15> Review of Systems Constitutional: Constitutional: Denies weakness <Miranda Bernal MD - Last Filed: 01/25/24 22:07> Cardiovascular: Cardiovascular: Denies syncope, Denies rapid heart rate, Denies irregular heart rhythm, Denies leg edema and Denies dyspnea <Miranda Bernal MD - Last Filed: 01/25/24 22:07> Respiratory: Respiratory: Denies chest congestion, Denies hemoptysis, Denies excessive phlegm production and Denies dyspnea <Miranda Bernal MD - Last Filed: 01/25/24 22:07> Avila[facility]
[2024-01-25 15:27] VITALS: BP 156/98; PULSE 86; RESP 18; TEMP 36.9; O2SAT 99
[2024-01-25 16:10] LABS: Basophils Absolute Auto 0.1 K/mm3 (0.0-0.1); Basophils Percent Auto 0.9 % (0.2-1.2); Eosinophils Percent Auto 0.6 % (0-4.4); Hematocrit 40.9 % (37.0-47.0); Hemoglobin 13.7 g/dL (12.0-15.0); Immature Granulocyte Absolute 0.05 K/mm3 (0.00-0.031); Immature Granulocyte Percent A 0.7 % (0-0.5); Lymphocytes Absolute Auto 2.04 K/mm3 (0.9-3.2); Mean Corpuscular HGB Conc 33.5 g/dl (32-36); Mean Corpuscular Hemoglobin 33.2 pg (26-34); Mean Platelet Volume 8.7 fl (7.4-10.4); Monocytes Absolute Auto 0.7 K/mm3 (0.1-0.6); Monocytes Percent Auto 9.5 % (2.6-8.5); Neutrophils Percent Auto 58.3 % (45.5-73.1); Platelet Count Result 325 k/mm3 (150-375); Red Blood Count 4.13 M/mm3 (4.2-5.4); Red Cell Distribution Width 13.1 % (11.5-14.5); White Blood Count 6.8 K/mm3 (4.5-10.0)
[2024-01-25 16:30] LABS: Alanine Aminotransferase 71 U/L (6-35); Albumin Level 4.9 g/dL (3.5-5.1); Alkaline Phosphatase 91 U/L (38-126); Anion Gap 10 mmol/L (4-12); Aspartate Amino Transferase 67 U/L (14-36); Bilirubin,Total 0.6 mg/dL (0.2-1.3); Blood Urea Nitrogen 16 mg/dL (7-17); Calcium 9.9 mg/dL (8.4-10.2); Carbon Dioxide 22 mmol/L (22-30); Chloride 105 mmol/L (98-107); Estimated CRCL calculation 99 ml/min; Estimated Glomerular Filt Rate > 60; Glucose 102 mg/dL (65-110); Lipase 342 U/L (23-300); Potassium 3.6 mmol/L (3.4-5.0); Sodium 137 mmol/L (137-145)
[2024-01-25 16:39] VITALS: PULSE 93; RESP 20; O2SAT 97
[2024-01-25] MEDS: KETOROLAC (*BKC) 60 MG/2 ML VIAL IM (16:51)
[2024-01-25 16:53] LABS: Appearance Urine Clear (Clear); Bacteria Urine None Seen /hpf; Bilirubin Urine Negative (Negative); Blood Urine Negative (Negative); Color Urine Yellow (Yellow); Glucose Urine UA Negative (Negative); Ketones Urine Negative (Negative); Leukocyte Esterase Ur Trace LEU/UL (Negative); Need Manual Microscopic Reviewed; Nitrate Urine Negative (Negative); Non Pathogenic Casts 0-2; Protein Urine Negative (Negative); Specific Grav Ur 1.006 (1.001-1.035); Squamous Epithelial Cell Urine None Seen /hpf (Few); Urobilinogen Urine 0.2 mg/dL (<2.0); WBC Urine 0-5 /hpf (0-3); pH Urine 5.5 (5.0-9.0)
[2024-01-25 16:54] LABS: Add Urine Microscopic? YES
[2024-01-25 17:37] VITALS: BP 154/97; PULSE 80; RESP 19; O2SAT 96
== END 2024-01-25 17:38 | disposition home or self-care (01) ==
PROVIDERS: Physician Assistant; Emergency Provider General Practice; PCP Family Medicine
DX: N39.0 Urinary tract infection, site not specified (principal); N20.0 Calculus of kidney; E03.9 Hypothyroidism, unspecified; E11.9 Type 2 diabetes mellitus without complications; Z87.891 Personal history of nicotine dependence
CPT/HCPCS: 36415; 74176; 80053; 81001; 83690; 85025; 96372; 99284; J1885

== ENCOUNTER 2024-04-05 11:52 | Outpatient (CLI) | payer BC, MEDICARE, SELFPAY ==
--- NOTE | ~2024-04-05 | XR_ITS ---
XR knee RT 3V 04/05/2024 12:22 Indication: Right knee pain Procedure: 3 views right knee Comparison: No prior studies for comparison. Findings: No fracture, subluxation or dislocation. There is anatomic alignment. No significant joint effusion. No foreign bodies. Impression: 1: No significant bone or joint abnormality. Reviewed, dictated and finalized at location B. Impression: 1: No significant bone or joint abnormality.
== END 2024-04-05 11:53 | disposition home or self-care (01) ==
PROVIDERS: PCP Family Medicine; Visit Provider Family Medicine
DX: M25.561 Pain in right knee (principal)
CPT/HCPCS: 73562

== ENCOUNTER 2024-06-21 23:11 | Emergency (ER) | payer BC, MEDICARE, SELFPAY ==
--- NOTE | ~2024-06-21 | CT_ITS ---
Non-contrast CT scan of the Abdomen and Pelvis Clinical indication: Left flank pain Technique: 2.5 mm axial scans were obtained through the abdomen and pelvis without intravenous or or al contrast. Dose reduction technique was used on this scan by utilizing automated exposure control a nd iterative reconstruction technique. The dose-length product (DLP) was 1214.69 mGy-cm. COMPARISON: 01/25/2024 Findings: Images through the lung bases reveal no abnormalities. There is a 7 mm stone in the very proximal left ureter (axial image 98), with minimal left hydronephr osis. No right renal or right ureteral stone. No right hydronephrosis. The liver, spleen, pancreas, and adrenals appear normal. Cholecystectomy clips are present. There is no aortic aneurysm. There is no evidence of bowel obstruction. There is evidence of prior bariatric surgery. Images through the pelvis were performed. There is no evidence of ascites or lymphadenopathy. Urinary bladder unremarkable. No pelvic mass seen. Status post hysterectomy. Impression: 7 mm proximal left ureteral stone with minimal left hydronephrosis. Reviewed, dictated and finalized at [facility]. EDGER Impression: 7 mm proximal left ureteral stone with minimal left hydronephrosis.
[2024-06-21 23:41] VITALS: BP 138/97; PULSE 103; RESP 15; TEMP 36.6; O2SAT 97
--- NOTE | 2024-06-21 23:52 | ED_ITS ---
HPI - Female Genitourinary General Chief complaint: Urogenital-Female Stated complaint: Left flank pain; coming and going, possible kidney Time Seen by Provider: 06/21/24 23:22 History of Present Illness HPI Narrative: Patient is a 43-year-old female who presents to the emergency department this evening complaining of left flank pain radiating to her left lower quadrant. Patient admits to a history of a kidney stones and states that this feels similar to her previous episode. Patient states that she also has a history of a Crohn's disease. She admits to nausea and vomiting at home. Patient states that she took a tramadol that she had at prior to arrival due to the pain. She describes the pain as a colicky intermittent pain. Patient states that at its worse it is a very sharp severe pain. Patient states that right now she is not in any pain. Patient denies any dysuria and is denying any fevers or chills at home. No additional symptoms or concerns at this time. Related Data Home Medications Medication Instructions Recorded Confirmed bupropion HCl 150 mg 24 hr tablet, 300 mg PO DAILY 03/17/23 05/25/23 extended release calcium 600 mg (as 1 cap PO BID 03/17/23 05/25/23 carbonate)-vitamin D3 10 mcg (400 unit) capsule Biotin Plus Keratin 1 tablet PO BID 03/19/23 05/25/23 Daily Probiotic (10 Strains) 1 tablet PO DAILY 03/19/23 05/25/23 Vitamin D3 1 tablet PO BID 03/19/23 05/25/23 leflunomide 20 mg tablet 20 mg PO DAILY 05/22/23 05/25/23 Allergies Allergy/AdvReac Type Severity Reaction Status Date / Time Iodinated Contrast Media Allergy Hives Verified 01/25/24 12:46 iodine Allergy Hives Verified 01/25/24 12:46 aspirin AdvReac Intermediate R/T Verified 01/25/24 12:46 bariatric surgery history NSAIDS (Non-Steroidal AdvReac Unknown Gastrointestinal Verified 01/25/24 12:46 Anti-Inflamma Upset Review of Systems Review of Systems: All systems are reviewed and are negative unless stated otherwise in the HPI. [facility] Past Medical History Medical History Allergic rhinitis Crohn's disease Diet-controlled type 2 diabetes mellitus Fibromyalgia Gastroesophageal reflux disease Herpes Hypothyroidism Immunosuppressed status Insomnia Obstructive sleep apnea on CPAP Post depression Rheumatoid arthritis Surgical History Surgical History History of arthroscopic knee surgery History of cholecystectomy (01/2006) History of cystoscopy R ureteroscopy, R ureteral stent placement upper pole calyx 03/17/2023 R cystoscopy, R retrograde pyelogram R ureteroscopy with laser R stent exchange 4.8 Bulgarian contour 03/31/2023 History of endometrial ablation (03/2011) [facility] History of gastric bypass (2021) History of hysterectomy (2015) History of tonsillectomy and adenoidectomy (1981) Status post LASIK surgery of both eyes Family History Family History Other Cerebrovascular accident Diabetes mellitus Family history of cardiovascular disease Family history of malignant neoplasm Hypertension Social History Social History Social History: Surrogate medical decision maker: Mayo Soria, spouse. Code status: Full code. Smoking packs per day: 1 Smoking cigarettes per day: 20.0 Years smoked: 13 Smoking pack-years: 13.00 Smoking status: Former smoker Tobacco type: cigarettes Second hand tobacco smoke exposure: No Smoking end date: 08/03/09 Alcohol intake: never Alcohol use details: Social alcohol use in moderation. Substance use: current Substance use type: marijuana Other substance usage details: GUMMIES Last use: 03/25/23 Lack of Transportation: No Lack of Food: Never True Current Housing: I Have Housing Concerned About Future Housing: No Difficulty Paying Gas/Electric Bills: No Difficulty Paying for Meds: No Currently Unemployed: No Education: High School Diploma/GED Difficulty w/ Childcare or Family Care: No Living arrangements: with family Additional living arrangements comments: Lives with spouse with 14-year-old son and daughter in [place]. Occupation/Education: other Additional occupation/education comments: Disabled Spiritual care concerns: No Exam Narrative: General: Alert, awake, afebrile, in no acute distress. HEENT: PERRL, no rhinorrhea, no post nasal drip, oropharynx clear. Neck: Trachea midline, no JVD, no lymphadenopathy. Cardiovascular: Regular rate and rhythm, no murmurs, rubs or gallops, no peripheral edema. Respiratory: Clear to auscultation bilaterally, no tachypnea, no wheezing, no rhonchi, no rubs, no respiratory distress. Abdomen: Soft, nontender, nondistended, no rebound, no guarding, no peritoneal signs. Musculoskeletal: No joint swelling or deformity, normal muscle tone. Skin: No rashes or petechia, no signs of infection. Psychiatric: Alert and oriented, normal behavior and judgment for situation. Neurological: Alert and oriented to person, place, and time. Follows all commands. No focal deficits, speech is clear and fluent. Course Vital Signs Vital signs: Vital Signs Temperature 98 F 06/21/24 23:41 Pulse Rate 103 H 06/21/24 23:41 Respiratory Rate 15 06/21/24 23:41 Blood Pressure 138/97 H 06/21/24 23:41 Pulse Oximetry 97 06/21/24 23:41 Temperature 98 F 06/21/24 23:41 Pulse Rate 83 06/22/24 05:14 Respiratory Rate 15 06/22/24 05:14 Blood Pressure 113/70 06/22/24 05:14 Pulse Oximetry 97 06/22/24 05:14 Oxygen Delivery Nasal Cannula 06/22/24 03:54 Oxygen Flow Rate 2 06/22/24 03:54 MDM - Female Genitourinary MDM Narrative Medical decision making narrative: The patient was evaluated by myself in the emergency department. History is obtained from patient who is an independent historian and physical exam was performed. External medical records were reviewed at this time. IV was established and pertinent tests were ordered. Patient was administered a total of 8 mg IV morphine for pain and 8 mg IV Zofran for nausea and 1 L IV fluid bolus with normal saline. Laboratory results obtained revealing no acute process. Urinalysis revealed 1+ blood and 6-10 white blood cells otherwise unremarkable. Imaging studies obtained included CT abdomen pelvis without IV contrast which was independently interpreted by me revealing a 4 x 5 mm left UVJ stone with mild left-sided hydronephrosis, which is pending final radiology interpretation. Patient has a history of a gastric bypass surgery and was told that she cannot take any NSAIDs. Differential diagnosis considerations include renal colic, pyelonephritis, diverticulitis. Comorbidities impacting this visit include history of kidney stones. I have evaluated and discussed social determinants of health with the patient that could potentially impact subsequent diagnosis and treatment plans. On repeat assessment of the patient, reevaluation revealed that the patient is doing well and is in no acute distress. Patient symptoms have improved since she arrived to our emergency department. Repeat vital signs were all reviewed and noted to be stable. Differential diagnosis and treatment plan were discussed with the patient at bedside. Patient agrees with discussion and after shared medical decision making agrees with discharge. All questions were answered to the patient's satisfaction. Patient was administered an additional total dose of 8 mg of IV morphine and 8 mg of IV Zofran and Toradol for pain prior to discharge. Patient will follow up with her urologist in 3-5 days. Scripts for Flomax, Zofran and hydrocodone were sent to patient's pharmacy to use as prescribed. She was also provided with a urine strainer. Patient was provided with strict return precautions and instructed to return to the emergency department if any new or worsening symptoms develop. The patient was discharged in stable condition. Lab Data 06/21/24 23:55 06/21/24 23:55 Labs: Lab Results 06/21/24 06/22/24 06/22/24 Range/Units 23:55 00:45 00:50 WBC 7.8 (4.5-10.0) K/mm3 RBC 3.28 L (4.2-5.4) M/mm3 Hgb 11.6 L (12.0-15.0) g/dL Hct 34.2 L (37.0-47.0) % MCV 104.3 H (80-100) fl MCH 35.4 H (26-34) pg MCHC 33.9 (32-36) g/dl RDW 12.6 (11.5-14.5) % Plt Count 308 (150-375) k/mm3 MPV 8.6 (7.4-10.4) fl Immature Gran % (Auto) 0.3 (0-0.5) % Neut % (Auto) 67.4 (45.5-73.1) % Lymph % (Auto) 20.2 (18.3-44.2) % [place] % (Auto) 9.5 H (2.6-8.5) % Eos % (Auto) 1.7 (0-4.4) % Baso % (Auto) 0.9 (0.2-1.2) % Lymph # (Auto) 1.57 (0.9-3.2) K/mm3 [place] # (Auto) 0.7 H (0.1-0.6) K/mm3 Eos # (Auto) 0.1 (0-0.3) K/mm3 Baso # (Auto) 0.1 (0.0-0.1) K/mm3 Abs Immat Gran (auto) 0.02 (0.00-0.031) K/mm3 Absolute Neuts (auto) 5.3 (1.3-6.7) K/mm3 Absolute Nucleated RBC 0.000 (0.0-0.012) K/mm3 Nucleated RBC % 0.0 (0.0-0.2) % Sodium 134 L (137-145) mmol/L Potassium 3.7 (3.4-5.0) mmol/L Chloride 105 (98-107) mmol/L Carbon Dioxide 23 (22-30) mmol/L Anion Gap 6 (4-12) mmol/L BUN 15 (7-17) mg/dL Creatinine 0.70 (0.7-1.0) mg/dL Estim Creat Clear Calc 110 ml/min Estimated GFR > 60 (59 - ) Glucose 195 H (65-110) mg/dL Calcium 8.9 (8.4-10.2) mg/dL Total Bilirubin 0.5 (0.2-1.3) mg/dL AST 63 H (14-36) U/L ALT 54 H (6-35) U/L Alkaline Phosphatase 96 (38-126) U/L Total Protein 7.0 (6.3-8.2) g/dL Albumin 4.2 (3.5-5.1) g/dL Lipase 248 (23-300) U/L Urine Color Yellow (Yellow) Urine Appearance Clear (Clear) Urine pH 6.0 (5.0-9.0) Ur Specific [place] 1.010 (1.001-1.035) Urine Protein Negative (Negative) mg/dL Urine Glucose (UA) Negative (Negative) mg/dL Urine Ketones Negative (Negative) mg/dL Ur Blood (Man) 1+ H (Negative) Urine Nitrate Negative (Negative) Urine Bilirubin Negative (Negative) Urine Urobilinogen 0.2 (<2.0) mg/dL Leukocyte Esterase Rfl 1+ H (Negative) MERY/UL Urine RBC 0-2 (0-2) /hpf Urine WBC 6-10 H (0-3) /hpf Ur Squamous Epith Cells None seen (Few) /hpf Urine Bacteria None seen /hpf Urine Casts 0-2 POC Urine HCG, Qual Negative (Negative) Discharge Plan Discharge Clinical Impression: Hydronephrosis, Kidney stone on left side Patient Disposition: Home, Self-Care Condition: Improved Instructions: Antibiotic Form, Kidney Stones (ED) Additional Instructions: Please follow-up with your urologist, Dr. Torres within the next 3-5 days. Use the prescribed medications as needed for pain and nausea. Return to the emergency department if any new or worsening symptoms develop. Prescriptions: New ondansetron 4 mg tablet,disintegrating 4 mg PO Q8H PRN (Reason: nausea and vomiting) Qty: 14 0RF tamsulosin [Flomax] 0.4 mg capsule 0.4 mg PO DAILY Qty: 14 0RF hydrocodone-acetaminophen 5-325 mg tablet 1 tablet PO Q8H PRN (Reason: pain) Qty: 14 0RF No Action bupropion HCl 150 mg tablet extended release 24 hr 300 mg PO DAILY leflunomide 20 mg tablet 20 mg PO DAILY nystatin 100,000 unit/gram powder 1 applic topical TID Qty: 60 2RF cyclobenzaprine 10 mg tablet 10 mg PO TID 90 Days Qty: 270 1RF levothyroxine 100 mcg tablet 100 mcg PO DAILY Qty: 60 0RF Rx Instructions: 1 tablet Mon-Sat, 2 tablets Sun cetirizine 10 mg tablet 10 mg PO DAILY Qty: 30 0RF calcium carbonate-vitamin D3 600 mg-10 mcg (400 unit) capsule 1 cap PO BID Biotin Plus Keratin 10,000 mcg 1 tablet PO BID Daily Probiotic (10 Strains) 1 tablet PO DAILY Vitamin D3 1 tablet PO BID cephalexin 500 mg capsule 500 mg PO Q12H 7 Days Qty: 14 0RF hydrochlorothiazide 25 mg tablet 25 mg PO DAILY 30 Days Qty: 30 5RF nystatin 100,000 unit/gram cream 1 applic topical BID Qty: 30 3RF fluconazole 150 mg tablet 150 mg PO DAILY Qty: 3 0RF ondansetron HCl 8 mg tablet 8 mg PO Q12H 90 Days Qty: 180 2RF Paxlovid 300 mg (150 mg x 2)-100 mg tablets,dose pack See Rx Instructions PO .COMPLEX Qty: 30 0RF Rx Instructions: take TWO 150 mg tablets of nirmatrelvir with ONE 100 mg tablet of ritonavir twice daily for 5 days PO fluconazole 150 mg tablet See Rx Instructions .ROUTE .COMPLEX Qty: 2 0RF Dose Instruction: 150 MG ORALLY ONCE. MAY REPEAT X 1 IN WEEK IF NEEDED A SINGLE DOSE Rx Instructions: 150 MG ORALLY ONCE. MAY REPEAT X 1 IN WEEK IF NEEDED A SINGLE DOSE aripiprazole 5 mg tablet 5 mg PO QHS Qty: 90 2RF fluoxetine 40 mg capsule 40 mg PO HS Qty: 90 3RF sulfamethoxazole-trimethoprim 800-160 mg tablet 1 tablet PO Q12H Qty: 20 0RF pregabalin 100 mg capsule 100 mg PO BID 90 Days Qty: 180 0RF tramadol 50 mg tablet 50 mg PO TID Qty: 90 2RF pseudoephedrine HCl 120 mg tablet extended release See Rx Instructions .ROUTE .COMPLEX Qty: 60 2RF Dose Instruction: TAKE 1 TABLET BY MOUTH EVERY 12 HOURS Rx Instructions: TAKE 1 TABLET BY MOUTH EVERY 12 HOURS valacyclovir 1 gram tablet See Rx Instructions .ROUTE .COMPLEX Qty: 30 2RF Dose Instruction: TAKE 2 TABLETS ORALLY EVERY 12 HOURS NEEDED FOR COLD SORES 10 Rx Instructions: TAKE 2 TABLETS ORALLY EVERY 12 HOURS NEEDED FOR COLD SORES 10 omeprazole 20 mg capsule,delayed release(DR/EC) 20 mg PO DAILY Qty: 90 1RF lisinopril 40 mg tablet 40 mg PO DAILY Qty: 90 1RF Follow-up/Referrals: Ottoniel Torres MD [Physician] - 3 Days Michael Bahena MD [Primary Care Provider] - Time of Disposition: 04:47
[2024-06-22] LABS: Basophils Absolute Auto 0.1 K/mm3 (0.0-0.1); Basophils Percent Auto 0.9 % (0.2-1.2); Eosinophils Absolute Auto 0.1 K/mm3 (0-0.3); Eosinophils Percent Auto 1.7 % (0-4.4); Hematocrit 34.2 % (37.0-47.0); Hemoglobin 11.6 g/dL (12.0-15.0); Immature Granulocyte Absolute 0.02 K/mm3 (0.00-0.031); Immature Granulocyte Percent A 0.3 % (0-0.5); Lymphocytes Absolute Auto 1.57 K/mm3 (0.9-3.2); Lymphocytes Percent Auto 20.2 % (18.3-44.2); Mean Corpuscular HGB Conc 33.9 g/dl (32-36); Mean Corpuscular Hemoglobin 35.4 pg (26-34); Mean Corpuscular Volume 104.3 fl (80-100); Mean Platelet Volume 8.6 fl (7.4-10.4); Monocytes Absolute Auto 0.7 K/mm3 (0.1-0.6); Monocytes Percent Auto 9.5 % (2.6-8.5); Neutrophils Absolute Auto 5.3 K/mm3 (1.3-6.7); Neutrophils Percent Auto 67.4 % (45.5-73.1); Platelet Count Result 308 k/mm3 (150-375); Red Blood Count 3.28 M/mm3 (4.2-5.4); Red Cell Distribution Width 12.6 % (11.5-14.5); White Blood Count 7.8 K/mm3 (4.5-10.0)
[2024-06-22] MEDS: ONDANSETRON INJ 4 MG/2 ML VIAL IV PUSH ×3 (00:04→05:01)
[2024-06-22] MEDS: MORPHINE SULFATE (*CRX) 4 MG/ML INJ IV PUSH ×4 (00:04→05:01)
[2024-06-22 00:42] LABS: Alanine Aminotransferase 54 U/L (6-35); Albumin Level 4.2 g/dL (3.5-5.1); Alkaline Phosphatase 96 U/L (38-126); Anion Gap 6 mmol/L (4-12); Aspartate Amino Transferase 63 U/L (14-36); Bilirubin,Total 0.5 mg/dL (0.2-1.3); Blood Urea Nitrogen 15 mg/dL (7-17); Calcium 8.9 mg/dL (8.4-10.2); Carbon Dioxide 23 mmol/L (22-30); Chloride 105 mmol/L (98-107); Estimated CRCL calculation 110 ml/min; Estimated Glomerular Filt Rate > 60; Glucose 195 mg/dL (65-110); Lipase 248 U/L (23-300); Potassium 3.7 mmol/L (3.4-5.0); Sodium 134 mmol/L (137-145)
[2024-06-22 00:51] VITALS: BP 118/87; PULSE 96; RESP 15; O2SAT 93
[2024-06-22 00:51] LABS: BEDSIDEPREGUCG Negative (Negative)
[2024-06-22 00:57] LABS: Add Urine Microscopic? YES; Appearance Urine Clear (Clear); Bacteria Urine None Seen /hpf; Bilirubin Urine Negative (Negative); Blood Urine 1+ (Negative); Color Urine Yellow (Yellow); Glucose Urine UA Negative (Negative); Ketones Urine Negative (Negative); Leukocyte Esterase Ur 1+ LEU/UL (Negative); Nitrate Urine Negative (Negative); Non Pathogenic Casts 0-2; Protein Urine Negative (Negative); RBC Urine 0-2 /hpf (0-2); Squamous Epithelial Cell Urine None Seen /hpf (Few); Urobilinogen Urine 0.2 mg/dL (<2.0)
[2024-06-22] MEDS: SODIUM CHLORIDE 0.9% IV 1,000 ML 999 ML IV CONT (01:49)
[2024-06-22 03:14] VITALS: BP 122/81; PULSE 91; RESP 15; O2SAT 94
[2024-06-22 03:54] VITALS: O2SAT 95
[2024-06-22 05:14] VITALS: BP 113/70; PULSE 83; RESP 15; O2SAT 97
== END 2024-06-22 05:18 | disposition home or self-care (01) ==
PROVIDERS: Emergency Provider Emergency Medicine; PCP Family Medicine
DX: N13.2 Hydronephrosis with renal and ureteral calculous obstruction (principal); E11.9 Type 2 diabetes mellitus without complications; E03.9 Hypothyroidism, unspecified; M06.9 Rheumatoid arthritis, unspecified; M79.7 Fibromyalgia; G47.33 Obstructive sleep apnea (adult) (pediatric); K50.90 Crohn's disease, unspecified, without complications; K21.9 Gastro-esophageal reflux disease without esophagitis; Z98.84 Bariatric surgery status; Z87.442 Personal history of urinary calculi; Z87.891 Personal history of nicotine dependence; Z90.49 Acquired absence of other specified parts of digestive tract; Z90.710 Acquired absence of both cervix and uterus; Z79.899 Other long term (current) drug therapy
CPT/HCPCS: 36415; 74176; 80053; 81001; 81025; 83690; 85025; 87086; 96361; 96374; 96375; 96376; 99284; J2270; J2405; J7030

== ENCOUNTER 2024-06-22 11:27 | Day surgery (SDC) | payer MEDICARE, BC, SELFPAY ==
[2024-06-22] VITALS (12 sets, daily range): BP systolic 99–164; BP diastolic 77–103; PULSE 84–99; RESP 12–18; TEMP 35.9–36.3; O2SAT 91–96; BMI 41.6
--- NOTE | ~2024-06-22 | XR_ITS ---
XR abdomen/kub 1V Ordering provider: Ottoniel Torres MD History: . Left ureteral stone, PRE OP . Comparison: None. FINDINGS: BOWEL: Nonobstructive bowel gas pattern. ORGANOMEGALY: None. SIGNIFICANT PATHOLOGIC CALCIFICATIONS: None. Calcific shadow seen in the left side of the pelvis ne ar to the symphysis pubis may be a stone or phlebolith. Follow-up advised. OTHER: No free air is seen under the diaphragm. IMPRESSION: NO ACUTE ABDOMINAL FINDINGS. Possible stone in the left lower ureter. Follow-up advised. Reviewed, dictated and finalized at location A. LE[facility] PR[facility]
--- NOTE | ~2024-06-22 | XR_ITS ---
EXAMINATION: XR retrograde pyelo w/stent LT DATE: 06/22/2024 14:54 INDICATION: Left ureteral stone. TECHNIQUE: 2 intraoperative fluoroscopic views of the abdomen and pelvis were obtained. I was not pre sent. Fluoroscopy exposure time was 25 seconds. COMPARISON: CT abdomen and pelvis 06/22/2024 FINDINGS: The left-sided retrograde pyelogram is unremarkable. There is a left internal ureteral sten t in expected position. IMPRESSION: 1. Left internal ureteral stent in expected position. Reviewed, dictated and finalized at location A. 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
--- NOTE | 2024-06-22 11:17 | PC.NURSE ---
Report to the Outpatient Waiting Room, entrance under the green pavilion located off [facility], at time _1200_ on date _[id number]_. Planned Procedure Time: _1400_.? Time changes happen often and if your time is changed the preop area will call you the afternoon before. - You and your visitor will be asked to self-screen and do not enter if you have any COVID symptoms. Please call surgeon if you need to reschedule. - A mask is optional within the hospital at this time. Patients may have clear liquids (water, carbonated beverages, clear teas, apple juice) until 3 hours prior to surgery with a maximum of 20 ounces. - No food from midnight until time of surgery and no smoking. This includes no chewing gum, candy or mints. Take only the following medications with a SIP of water on the morning of surgery: ____Alprazolam, Levothyroxine, Pregabalin, Prednisone and if needed Tramadol and or Zofran DO NOT STOP ANY OF YOUR OTHER PRESCRIPTION MEDICATIONS PRIOR TO SURGERY EXCEPT THE FOLLOWING Medications to discontinue per physician Take no other medications till after surgery today. Date to take last dose Please no make-up, nail indonesian, hairspray, perfume, deodorant, or body powder the day of surgery.? No jewelry (including any body piercings) or valuables the day of surgery, leave them at home.? Please take a shower or bath the night before, or the morning of, surgery with an antibacterial soap.? Wear comfortable, loose fitting clothing.? - Jewelry must be removed prior to entering the operating room.? Rings and piercings that are not removed may be cut off. - The hospital will not accept responsibility for valuables.? - Please leave all valuables, including medications, at home the day of surgery. If you are going home after surgery, a licensed escort car driver must drive you home.? - NO public transportation without another adult if you receive anesthesia. - We recommend that an adult stay with you for 24 hours following discharge. - We also recommend that you do not drive, make important decision, drink alcoholic beverages, or take any drugs that were not prescribed by your health care provider for at least 24 hours after your discharge time. Follow any additional instructions given to you from your surgeon. Telephone instructions given to __Jen_and asked if any additional questions and then verbalized understanding. Patient advised to call surgeon office or pre surgery nurse liaison [phone] if any additional questions.
--- NOTE | 2024-06-22 11:59 | WPDHPUPDATE1 ---
History and Physical Update Update Date/Time: 06/22/24 11:59 History and Physical has been reviewed, including an updated exam of the patient. There are NO changes in the patient's condition. Risks, benefits, and alternatives have been discussed and questions answered. Patient agrees to proceed with procedure.
--- NOTE | 2024-06-22 11:59 | PM.IMHP ---
H&P: HPI History of Present Illness Date/Time: 06/22/24 11:59 Chief Complaint: Obstructing 7 mm left proximal ureteral calculus Narrative: 43-year-old female was in the emergency room earlier in the morning with left flank pain. She was found have a 7 mm obstructing left proximal stone. Her pain persisted and is now here for stent placement at a minimum possible ureteroscopy with laser Review of Systems Review of Systems: All systems reviewed & are unremarkable except as noted in HPI and below PMFSH Past Medical History Medical History Allergic rhinitis Crohn's disease Diet-controlled type 2 diabetes mellitus Fibromyalgia Gastroesophageal reflux disease Herpes Hypothyroidism Immunosuppressed status Insomnia Obstructive sleep apnea on CPAP Post depression Rheumatoid arthritis Surgical History Surgical History History of arthroscopic knee surgery History of cholecystectomy (01/2006) History of cystoscopy R ureteroscopy, R ureteral stent placement upper pole calyx 03/17/2023 R cystoscopy, R retrograde pyelogram R ureteroscopy with laser R stent exchange 4.8 Ukrainian contour 03/31/2023 History of endometrial ablation (03/2011) [facility] History of gastric bypass (2021) History of hysterectomy (2015) History of tonsillectomy and adenoidectomy (1981) Status post LASIK surgery of both eyes Family History Family History Other Cerebrovascular accident Diabetes mellitus Family history of cardiovascular disease Family history of malignant neoplasm Hypertension Social History Social History Social History: Surrogate medical decision maker: Mayo Soria, spouse. Code status: Full code. Smoking packs per day: 1 Smoking cigarettes per day: 20.0 Years smoked: 13 Smoking pack-years: 13.00 Smoking status: Former smoker Tobacco type: cigarettes Second hand tobacco smoke exposure: No Smoking end date: 06/22/10 Alcohol intake: current Alcohol use details: Social alcohol use in moderation. Substance use: current Substance use type: marijuana Other substance usage details: Gummies as needed. Last use: 03/25/23 Lack of Transportation: No Lack of Food: Never True Current Housing: I Have Housing Concerned About Future Housing: No Difficulty Paying Gas/Electric Bills: No Difficulty Paying for Meds: No Currently Unemployed: No Education: High School Diploma/GED Difficulty w/ Childcare or Family Care: No Living arrangements: with family Additional living arrangements comments: Lives with spouse with 14-year-old son and daughter in [place]. Occupation/Education: other Additional occupation/education comments: Disabled Spiritual care concerns: No Meds Home Medications and Allergies Home Medications Medication Instructions Recorded Confirmed Type cetirizine 10 mg tablet 10 mg PO DAILY #30 tabs 02/24/23 06/22/24 Rx levothyroxine 100 mcg tablet 100 mcg PO DAILY #60 tabs 02/24/23 06/22/24 Rx bupropion HCl 150 mg 24 hr tablet, 300 mg PO DAILY 03/17/23 06/22/24 History extended release calcium 600 mg (as 1 cap PO BID 03/17/23 06/22/24 History carbonate)-vitamin D3 10 mcg (400 unit) capsule Biotin Plus Keratin 1 tablet PO BID 03/19/23 06/22/24 History Daily Probiotic (10 Strains) 1 tablet PO DAILY 03/19/23 06/22/24 History Vitamin D3 1 tablet PO BID 03/19/23 06/22/24 History leflunomide 20 mg tablet 20 mg PO DAILY 05/22/23 06/22/24 History nystatin 100,000 unit/gram topical 1 applic topical TID #60 grams 06/30/23 06/22/24 Rx powder nystatin 100,000 unit/gram topical 1 applic topical BID #30 grams 07/15/23 06/22/24 Rx cream ondansetron HCl 8 mg tablet 8 mg PO Q12H nausea and vomiting 07/31/23 06/22/24 Rx 90 days #180 tabs aripiprazole 5 mg tablet 5 mg PO QHS #90 tabs 02/24/24 06/22/24 Rx fluoxetine 40 mg capsule 40 mg PO HS #90 caps 03/10/24 06/22/24 Rx pregabalin 100 mg capsule 100 mg PO BID 90 days #180 caps 03/27/24 06/22/24 Rx pseudoephedrine HCl 120 mg See Rx Instructions .Route 04/11/24 06/22/24 Rx tablet,extended release .COMPLEX #60 tabs valacyclovir 1 gram tablet See Rx Instructions .Route 05/05/24 06/22/24 Rx .COMPLEX #30 tabs lisinopril 40 mg tablet 40 mg PO DAILY #90 tabs 06/13/24 06/22/24 Rx omeprazole 20 mg capsule,delayed 20 mg PO DAILY #90 caps 06/13/24 06/22/24 Rx release alprazolam 1 mg tablet 1 mg PO BID 06/22/24 06/22/24 History cyclobenzaprine 10 mg tablet 10 mg PO TID PRN Spasms 06/22/24 06/22/24 History hydrocodone 5 mg-acetaminophen 325 1 tablet PO Q8H PRN pain #14 tabs 06/22/24 06/22/24 Rx mg tablet linaclotide 145 mcg capsule 145 mcg PO DAILY PRN Abdominal 06/22/24 06/22/24 History (Linzess) Discomfort ondansetron 4 mg disintegrating 4 mg PO Q8H PRN nausea and 06/22/24 06/22/24 Rx tablet vomiting #14 tabs prednisone 1 mg tablet 4 mg PO DAILY 06/22/24 06/22/24 History semaglutide 0.25 mg or 0.5 mg (2 0.5 mg subcut DAILY 06/22/24 06/22/24 History mg/3 mL) subcutaneous pen injector (Ozempic) sulfasalazine 500 mg 1.5 g PO BID 06/22/24 06/22/24 History tablet,delayed release tamsulosin 0.4 mg capsule (Flomax) 0.4 mg PO DAILY #14 caps 06/22/24 06/22/24 Rx tramadol 50 mg tablet 50 mg PO TID PRN Pain 06/22/24 06/22/24 History upadacitinib 30 mg tablet,extended 30 mg PO DAILY 06/22/24 06/22/24 History release 24 hr (Rinvoq) Allergies Allergy/AdvReac Type Severity Reaction Status Date / Time aspirin AdvReac Intermediate R/T Verified 06/22/24 11:00 bariatric surgery history NSAIDS (Non-Steroidal AdvReac Unknown Gastrointestinal Verified 06/22/24 11:00 Anti-Inflamma Upset Exam Const: General: cooperative; No comfortable Resp: Effort & Inspection: normal respiratory effort Cardio: Rate: regular rate Rhythm: regular rhythm Assessment and Plan Assessment and plan (1) Left ureteral calculus: Code(s): N20.1 - Calculus of ureter Status: Acute Assessment and Plan: proceed with cystoscopy, left retrograde pyelogram left ureteral stent placement, possible ureteroscopy with laser
[2024-06-22 12:54] LABS: Glucose Point of Care 117 mg/dl (65-105)
[2024-06-22] MEDS: LACTATED RINGERS 1,000 ML 30 ML IV CONT ×2 (13:00→15:00)
[2024-06-22] MEDS: fentaNYL CITRATE INJ (*CRX) 100 MCG/2 ML VIAL 50 MCG IV PUSH (13:09)
[2024-06-22] MEDS: ONDANSETRON INJ 4 MG/2 ML VIAL IV PUSH (13:09)
[2024-06-22] MEDS: fentaNYL CITRATE INJ (*CRX) 100 MCG/2 ML VIAL 25 MCG IV PUSH ×5 (13:35→15:48)
--- NOTE | 2024-06-22 13:42 | WPDANESEPPF ---
Anes - Initial Pre Proc Eval Procedure: Operation Date: 06/22/24 14:00 Proposed Procedures p Cystoscopy, Left Ureteroscopy, Possible Left Retrograde Pyelogram, Possible Left Stone Extraction, Possible Left Stent Placement, Possible Holmium Laser - Ottoniel Torres MD Date/Time: 06/22/24 13:42 Surgeon: Ottoniel Torres MD Pre Op Diagnosis: left ureteral calculus Patient Data Age: 43 Gender: F Height: 1.65 m Weight: 117 kg Last Vital Signs Temp 96.7 F L 06/22/24 13:29 Pulse 92 06/22/24 13:29 Resp 16 06/22/24 13:29 BP 143/80 H 06/22/24 13:29 Pulse Ox 95 06/22/24 13:29 O2 Del Method Room Air 06/22/24 13:29 Allergies Allergy/AdvReac Type Severity Reaction Status Date / Time aspirin AdvReac Intermediate R/T Verified 06/22/24 13:29 bariatric surgery history NSAIDS (Non-Steroidal AdvReac Unknown Gastrointestinal Verified 06/22/24 13:29 Anti-Inflamma Upset Home Medications Medication Instructions Recorded Confirmed Type cetirizine 10 mg tablet 10 mg PO DAILY #30 tabs 02/24/23 06/22/24 Rx levothyroxine 100 mcg tablet 100 mcg PO DAILY #60 tabs 02/24/23 06/22/24 Rx bupropion HCl 150 mg 24 hr tablet, 300 mg PO DAILY 03/17/23 06/22/24 History extended release calcium 600 mg (as 1 cap PO BID 03/17/23 06/22/24 History carbonate)-vitamin D3 10 mcg (400 unit) capsule Biotin Plus Keratin 1 tablet PO BID 03/19/23 06/22/24 History Daily Probiotic (10 Strains) 1 tablet PO DAILY 03/19/23 06/22/24 History Vitamin D3 1 tablet PO BID 03/19/23 06/22/24 History leflunomide 20 mg tablet 20 mg PO DAILY 05/22/23 06/22/24 History nystatin 100,000 unit/gram topical 1 applic topical TID #60 grams 06/30/23 06/22/24 Rx powder nystatin 100,000 unit/gram topical 1 applic topical BID #30 grams 07/15/23 06/22/24 Rx cream ondansetron HCl 8 mg tablet 8 mg PO Q12H nausea and vomiting 07/31/23 06/22/24 Rx 90 days #180 tabs aripiprazole 5 mg tablet 5 mg PO QHS #90 tabs 02/24/24 06/22/24 Rx fluoxetine 40 mg capsule 40 mg PO HS #90 caps 03/10/24 06/22/24 Rx pregabalin 100 mg capsule 100 mg PO BID 90 days #180 caps 03/27/24 06/22/24 Rx pseudoephedrine HCl 120 mg See Rx Instructions .Route 04/11/24 06/22/24 Rx tablet,extended release .COMPLEX #60 tabs valacyclovir 1 gram tablet See Rx Instructions .Route 05/05/24 06/22/24 Rx .COMPLEX #30 tabs lisinopril 40 mg tablet 40 mg PO DAILY #90 tabs 06/13/24 06/22/24 Rx omeprazole 20 mg capsule,delayed 20 mg PO DAILY #90 caps 06/13/24 06/22/24 Rx release alprazolam 1 mg tablet 1 mg PO BID 06/22/24 06/22/24 History cyclobenzaprine 10 mg tablet 10 mg PO TID PRN Spasms 06/22/24 06/22/24 History hydrocodone 5 mg-acetaminophen 325 1 tablet PO Q8H PRN pain #14 tabs 06/22/24 06/22/24 Rx mg tablet linaclotide 145 mcg capsule 145 mcg PO DAILY PRN Abdominal 06/22/24 06/22/24 History (Brookezess) Discomfort ondansetron 4 mg disintegrating 4 mg PO Q8H PRN nausea and 06/22/24 06/22/24 Rx tablet vomiting #14 tabs prednisone 1 mg tablet 4 mg PO DAILY 06/22/24 06/22/24 History semaglutide 0.25 mg or 0.5 mg (2 0.5 mg subcut DAILY 06/22/24 06/22/24 History mg/3 mL) subcutaneous pen injector (Ozempic) sulfasalazine 500 mg 1.5 g PO BID 06/22/24 06/22/24 History tablet,delayed release tamsulosin 0.4 mg capsule (Flomax) 0.4 mg PO DAILY #14 caps 06/22/24 06/22/24 Rx tramadol 50 mg tablet 50 mg PO TID PRN Pain 06/22/24 06/22/24 History upadacitinib 30 mg tablet,extended 30 mg PO DAILY 06/22/24 06/22/24 History release 24 hr (Rinvoq) Laboratory Tests 06/22/24 12:52 POC Capillary Glucose 117 H mg/dl (65-105) Patient hx anesthesia problems: none Family hx anesthesia problems: none Results Review: All pre-operative results and documents have been reviewed as part of the pre-operative evaluation. [facility] Past Medical History Medical History Allergic rhinitis Crohn's disease Diet-controlled type 2 diabetes mellitus Fibromyalgia Gastroesophageal reflux disease Herpes Hypothyroidism Immunosuppressed status Insomnia Obstructive sleep apnea on CPAP Post depression Rheumatoid arthritis Surgical History Surgical History History of arthroscopic knee surgery History of cholecystectomy (01/2006) History of cystoscopy R ureteroscopy, R ureteral stent placement upper pole calyx 03/17/2023 R cystoscopy, R retrograde pyelogram R ureteroscopy with laser R stent exchange 4.8 Libyan contour 03/31/2023 History of endometrial ablation (03/2011) NovaSure History of gastric bypass (2021) History of hysterectomy (2015) History of tonsillectomy and adenoidectomy (1981) Status post LASIK surgery of both eyes Family History Family History Other Cerebrovascular accident Diabetes mellitus Family history of cardiovascular disease Family history of malignant neoplasm Hypertension Social History Social History Social History: Surrogate medical decision maker: Mayo Soria, spouse. Code status: Full code. Smoking packs per day: 1 Smoking cigarettes per day: 20.0 Years smoked: 13 Smoking pack-years: 13.00 Smoking status: Former smoker Tobacco type: cigarettes Second hand tobacco smoke exposure: No Smoking end date: 06/22/10 Alcohol intake: current Alcohol use details: Social alcohol use in moderation. Substance use: current Substance use type: marijuana Other substance usage details: Gummies as needed. Last use: 03/25/23 Lack of Transportation: No Lack of Food: Never True Current Housing: I Have Housing Concerned About Future Housing: No Difficulty Paying Gas/Electric Bills: No Difficulty Paying for Meds: No Currently Unemployed: No Education: High School Diploma/GED Difficulty w/ Childcare or Family Care: No Living arrangements: with family Additional living arrangements comments: Lives with spouse with 14-year-old son and daughter in [place]. Occupation/Education: other Additional occupation/education comments: Disabled Spiritual care concerns: No Anes - Eval Final PreProcedure Day of Procedure 06/22/24 13:42 Patient weight: morbidly obese Heart: regular rate and rhythm Lungs: clear to auscultation Airway: Mallampati scale class II Neurological: alert and oriented Last oral intake: >/= 8 hours ASA classification: III Emergent: no Anesthetic plan: proceed Anesthesia type and monitoring: general LMA and standard monitoring Results Review: All pre-operative results and documents have been reviewed as part of the pre-operative evaluation. Informed Consent: The patient's anesthetic plan and its attendant risks and benefits were discussed with the patient/family/POA. Questions were solicited and answers provided to the satisfaction of the patient/family/POA.
[2024-06-22] MEDS: ceFAZolin 2 GM/D5W 50 ML 2 GM/50 ML BAG IVPB (14:21)
[2024-06-22] MEDS: LIDOCAINE HCL 2% GEL UROJET 10 ML PKG MUCOUS MEM (14:24)
--- NOTE | 2024-06-22 14:50 | P.OP_ITS ---
Procedure Note - Detailed Date of Procedure 06/22/24 Pre-op Diagnosis left ureteral calculus Post-op Diagnosis Same Procedure Performed Cystoscopy, left retrograde pyelogram, left ureteroscopy with stone extraction, left ureteral stent placement 4.8 Vincentian contour Surgeon Ottoniel Torres MD Anesthesia General Description of Procedure Patient was taken the operative suite correctly identified. Once anesthesia was obtained she was placed in dorsal lithotomy position prepped and draped usual sterile fashion. Nineteen Vincentian scope inserted in the bladder. There were no tumors noted. Left ureteral orifice was cannulated with a guidewire. I dilated the orifice with and 8/10 dilator. Rigid ureteral scope was inserted. The stone was visualized in the more proximal ureter. Using escape basket I retrieved and sent for analysis. Reinspection revealed no residual stones. Pyelogram was then performed to confirm placement of the stent. Prior 0.8 Vincentian contour stent was then placed with the proximal end coiled in the renal pelvis and the distal in the bladder. Bladder was drained. 2% viscous lidocaine was inserted into the urethra patient is taken recovery stable condition. She will be discharged home. She will follow-up in a week's time for stent removal. Call for that appointment. This completes dictation. Please send a copy of op my Estimated Blood Loss 0 Drains Yes Packing No Pathology Yes Complications No immediate complications Condition Stable Disposition PACU
[2024-06-22 15:41] LABS: Glucose Point of Care 125 mg/dl (65-105)
[2024-06-22] MEDS: oxyCODONE HCL (*CRX) 5 MG TAB IR PO (16:13)
--- NOTE | 2024-06-22 16:52 | SUR.PHASEII ---
Addendum entered by Yudith Juares RN 06/22/24 16:57: Patient states has taken ketorolac in past with no reaction. Spouse at bedside and confirms. Original Note: Patient states she is not allergic to NSAIDs and has no allergic reaction at all, she just cannot take them orally d/t hx of gastric bypass.
[2024-06-22] MEDS: KETOROLAC 15 MG/ML VIAL (*BKC) IV PUSH (17:05)
== END 2024-06-22 17:41 | disposition home or self-care (01) ==
PROVIDERS: PCP Family Medicine; Visit Provider Urology
PROC: (CPT 52352; principal; 2024-06-22 14:00)
DX: N20.1 Calculus of ureter (principal); K50.90 Crohn's disease, unspecified, without complications; E11.9 Type 2 diabetes mellitus without complications; G47.33 Obstructive sleep apnea (adult) (pediatric); M06.9 Rheumatoid arthritis, unspecified; M79.7 Fibromyalgia; E03.9 Hypothyroidism, unspecified; K21.9 Gastro-esophageal reflux disease without esophagitis; Z79.620 Long term (current) use of immunosuppressive biologic; Z87.891 Personal history of nicotine dependence; F12.90 Cannabis use, unspecified, uncomplicated; E66.01 Morbid (severe) obesity due to excess calories; Z68.41 Body mass index [BMI] 40.0-44.9, adult
CPT/HCPCS: 52332; 52352; 74018; 74420; 82948; A9270; C1769; C2617; J0330; J0690; J1100; J1885; J2003; J2250; J2405; J2704; J3010; J7120; Q9966